=== PATIENT | male | born 1960 | race African-American/Black ===

== ENCOUNTER 2016-12-23 09:24 | Inpatient (IN) | payer BC ==
[2016-12-23 11:55] VITALS: BMI 25.2
--- NOTE | 2016-12-23 13:32 | HP ---
COWS - Scale Resting Pulse: 0= [place] 80 or Below Sweatin=Flushed/Facial Moisture Restless Observation: 1= Difficult to Sit Still Pupil Size: 0= Normal to Room Light Bone or Joint Aches: 2= Severe Diffuse Aches Runny Nose/ Eye Tearin= Nasal Congestion GI Upset > 30mins: 0= None Tremor Observation: 2= Slight Tremor Visible Yawning Observation: 2= >3x During Session Anxiety or Irritability: 2=Irritable/Anxious Goose Flesh Skin: 3=Piloerection COWS Score: 15 Admission ROS BHS - HPI Chief Complaint: I want to detox and go to a rehab facility Allergies/Adverse Reactions: Allergies Allergy/AdvReac Type Severity Reaction Status Date / Time No Known Allergies Allergy Verified 12/23/16 12:50 History of Present Illness: pt is a 56yr old male with a history of heroin and cocaine dependence seeking detox for treatment. Exam Limitations: No Limitations - Ebola screening Have you traveled outside of the country in the last 21 days: No Have you had contact with anyone from an Ebola affected area: No Have you been sick,other than usual withdrawal symptoms: No Do you have a fever: No - Review of Systems Constitutional: Chills, Diaphoresis, Changes in sleep, Unexplained wgt Loss EENT: reports: Tearing Respiratory: reports: No Symptoms reported Cardiac: reports: No Symptoms Reported GI: reports: Constipated, Poor Fluid Intake, Indigestion : reports: No Symptoms Reported Musculoskeletal: reports: No Symptoms Reported Integumentary: reports: Flushing, Sweating Neuro: reports: Tingling, Tremors Endocrine: reports: Excessive Sweating, Flushing, Intolerance to Cold, Intolerance to Heat Hematology: reports: No Symptoms Reported Psychiatric: reports: Judgement Intact, Mood/Affect Appropiate, Orientated x3, Agitated, Anxious Other Systems: Reviewed and Negative Patient History - Patient Medical History Hx Anemia: No Hx Asthma: No Hx Chronic Obstructive Pulmonary Disease (COPD): No Hx Cancer: No Hx Cardiac Disorders: No Hx Congestive Heart Failure: No Hx Hypertension: No Hx Hypercholesterolemia: No Hx Pacemaker: No HX Cerebrovascular Accident: No Hx Seizures: No Hx Dementia: No Hx Diabetes: No Hx Gastrointestinal Disorders: Yes (acid reflux) Hx Liver Disease: No Hx Genitourinary Disorders: No Hx Sexually Transmitted Disorders: No Hx Renal Disease (ESRD): No Hx Thyroid Disease: No Hx Human Immunodeficiency Virus (HIV): No (NEGATIVE HX) Hx Hepatitis C: No (negative) Hx Depression: Yes (refused to see psych) Hx Suicide Attempt: No (denies) Hx Bipolar Disorder: No Hx Schizophrenia: No - Patient Surgical History Past Surgical History: No Hx Neurologic Surgery: No Hx Cataract Extraction: No Hx Cardiac Surgery: No Hx Lung Surgery: No Hx Breast Surgery: No Hx Breast Biopsy: No Hx Abdominal Surgery: No Hx Appendectomy: No Hx Cholecystectomy: No Hx Genitourinary Surgery: No Hx Section: No Hx Orthopedic Surgery: No Anesthesia Reaction: No - PPD History Previous Implant?: Yes Documented Results: Positive w/o proof PPD to be Administered?: No - Reproductive History Patient is a Female of Child Bearing Age (11 -55 yrs old): No - Smoking Cessation Smoking history: Current every day smoker Have you smoked in the past 12 months: Yes Aproximately how many cigarettes per day: 10 Hx Chewing Tobacco Use: No Initiated information on smoking cessation: Yes 'Breaking Loose' booklet given: 12/23/16 - Substance & Tx. History Hx Alcohol Use: No Hx Substance Use: Yes Substance Use Type: Cocaine, Heroin Hx Substance Use Treatment: Yes (last detox 2013) - Substances Abused Heroin Route: Inhalation Frequency: Daily Amount used: 3-5 bags Age of first use: 19 Date of Last Use: 12/22/16 Cocaine Route: Inhalation Frequency: 1-2 times per week Amount used: $50-75 Age of first use: 19 Date of Last Use: 12/20/16 Family Disease History - Family Disease History Family Disease History: Other: Father (), Mother () Admission Physical Exam S - Vital Signs Vital Signs: Vital Signs - 24 hr 12/23/16 11:54 Temperature 96 F L Pulse Rate 76 Respiratory 20 Rate Blood Pressure 143/97 - Physical General Appearance: Yes: Appropriately Dressed, Moderate Distress, Tremorous, Irritable, Sweating, Anxious HEENTM: Yes: Hearing grossly Normal, Normal Voice, Nasal Congestion, Rhinorrhea Respiratory: Yes: Chest Non-Tender, Lungs Clear, Normal Breath Sounds, No Respiratory Distress Neck: Yes: No masses,lesions,Nodules Breast: Yes: Within Normal Limits Cardiology: Yes: Regular Rhythm, Regular Rate, S1, S2 Abdominal: Yes: Normal Bowel Sounds, Non Tender, Soft Genitourinary: Yes: Within Normal Limits Back: Yes: Normal Inspection Musculoskeletal: Yes: full range of Motion, Gait Steady Extremities: Yes: Normal Capillary Refill, Normal Inspection, Tremors 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: Yes: Fully Oriented, Alert, Normal Response Integumentary: Yes: Normal Color, Diaphoresis Lymphatic: Yes: Within Normal Limits - Diagnostic (1) Opioid dependence with withdrawal Current Visit: Yes Status: Chronic (2) Cocaine dependence Current Visit: Yes Status: Chronic Qualifiers: Substance use status: uncomplicated Qualified Code(s): F14.20 - Cocaine dependence, uncomplicated; F14.20 - Cocaine dependence, uncomplicated; F14.20 - Cocaine dependence, uncomplicated BHS Breath Alcohol Content Breath Alcohol Content: 0 Urine Drug Screen - Results Drug Screen Negative: No Urine Drug Screen Results: AVNI-Cocaine, OPI-Opiates, MET-Methamphetamine
[2016-12-23] MEDS ORDERED: guaiFENesin/D-METHORPHAN HB 10 ML UNIT-DOSE CUPS PO PRN (13:55)
[2016-12-23] MEDS ORDERED: P-EPHED 60MG/TRIPROLIDI 2.5MG TABLET PO PRN (13:55)
[2016-12-23] MEDS ORDERED: hydrOXYzine PAMOATE 50 MG CAPSULE (FP) PO PRN (13:55)
[2016-12-23] MEDS ORDERED: MAGNESIUM CITRATE 300 ML BOTTLE PO PRN (13:55)
[2016-12-23] MEDS ORDERED: LOPERAMIDE HCL 2 MG CAPSULE PO PRN (13:55)
[2016-12-23] MEDS ORDERED: MAGNESIUM HYDROX 2400MG/30ML ORAL SUSPENSION 30 ML CUP PO PRN (13:55)
[2016-12-23] MEDS ORDERED: IBUPROFEN 400 MG TABLET (FP) PO PRN (13:55)
[2016-12-23] MEDS ORDERED: ACETAMINOPHEN 325 MG TABLET (FP) PO PRN (13:55)
[2016-12-23] MEDS ORDERED: MENTHOL/PHENOL 1 EACH UD MM PRN (13:55)
[2016-12-23] MEDS ORDERED: METHADONE HCL 10 MG TABLET (FOR DETOX USE ONLY) PO ONE ×2 (14:44→23:00)
[2016-12-23] MEDS: diazePAM 5 MG TABLET PO PRN ×2 (15:14→22:33)
[2016-12-23] MEDS: MAG HYDROX/AL HYDROX/SIMETH 30 ML UNIT-DOSE CUP PO PRN (18:12)
[2016-12-23 20:27] LABS: URINE APPEARANCE CLEAR; URINE BILIRUBIN NEGATIVE (NEGATIVE); URINE BLOOD NEGATIVE (NEGATIVE); URINE COLOR LTYELLOW; URINE GLUCOSE (UA) NEGATIVE (NEGATIVE); URINE KETONE NEGATIVE (NEGATIVE); URINE NITRITE NEGATIVE (NEGATIVE); URINE PROTEIN NEGATIVE (NEGATIVE); URINE UROBILINOGEN NEGATIVE mg/dL (0.2-1.0)
[2016-12-23] MEDS: THIAMINE HCL 100 MG TABLET (FP) PO SCH (22:32)
[2016-12-23] MEDS: RANITIDINE HCL 150 MG TABLET (FP) PO SCH (22:32)
[2016-12-23] MEDS: diphenhydrAMINE HCL 50 MG CAPSULE PO PRN (22:34)
[2016-12-23 22:46] LABS: URINE LEUK ESTERASE Negative (NEGATIVE)
[2016-12-24] MEDS: diazePAM 5 MG TABLET PO PRN ×4 (05:48→22:32)
--- NOTE | 2016-12-24 09:29 | EKG ---
Test Reason : Blood Pressure : / mmHG Vent. Rate : 061 BPM Atrial Rate : 061 BPM P-R Int : 156 ms QRS Dur : 090 ms QT Int : 398 ms P-R-T Axes : 059 052 033 degrees QTc Int : 400 ms NORMAL SINUS RHYTHM VOLTAGE CRITERIA FOR LEFT VENTRICULAR HYPERTROPHY ABNORMAL ECG NO PREVIOUS ECGS AVAILABLE Confirmed by CHELI MENDEZ MD ([id number]) on 12/24/2016 9:29:23 AM Referred By: Confirmed By:CHELI MENDEZ MD
[2016-12-24 09:43] LABS: MCH 33.1 pg (25.7-33.7); MCHC 32.5 g/dl (32.0-35.9); MEAN CELL VOLUME 101.8 fl (80-96); PLATELET COUNT 184 K/MM3 (134-434); RDW 13.2 % (11.9-15.9); WHITE BLOOD COUNT 3.9 K/mm3 (4.0-10.0)
[2016-12-24] MEDS ORDERED: METHADONE HCL 10 MG TABLET (FOR DETOX USE ONLY) PO ONE (10:00)
[2016-12-24] MEDS ORDERED: NICOTINE 21 MG/24 HOURS TOPICAL PATCH TD SCH (10:00)
[2016-12-24 10:16] LABS: ALBUMIN 4.2 g/dl (3.4-5.0); ALK PHOS 66 U/L (45-117); ANION GAP 6 (8-16); BILIRUBIN,TOTAL 0.5 mg/dL (0.2-1.0); CALCIUM 9.3 mg/dL (8.5-10.1); CO2 29 mmol/L (21-32); CREATININE 1.2 mg/dL (0.7-1.3); GLUCOSE,RANDOM 92 mg/dL (74-106); SGOT/AST 20 U/L (15-37); SGPT/ALT 26 U/L (12-78); TOT PROT 8.3 g/dl (6.4-8.2)
[2016-12-24] MEDS: RANITIDINE HCL 150 MG TABLET (FP) PO SCH ×2 (10:17→22:32)
[2016-12-24] MEDS: PRENATAL VITAMINS W/ FOLIC ACID TABLET (FP) PO SCH (10:17)
[2016-12-24] MEDS: NICOTINE POLACRILEX 4 MG GUM BUC PRN ×2 (10:26→16:59)
--- NOTE | 2016-12-24 14:11 | PN ---
BHS COWS - Scale Resting Pulse: 0= [place] 80 or Below Sweatin=Flushed/Facial Moisture Restless Observation: 1= Difficult to Sit Still Pupil Size: 0= Normal to Room Light Bone or Joint Aches: 2= Severe Diffuse Aches Runny Nose/ Eye Tearin= Nasal Congestion GI Upset > 30mins: 0= None Tremor Observation of Outstretched Hands: 2= Slight Tremor Visible Yawning Observation: 0= None Anxiety or Irritability: 2=Irritable/Anxious Goose Flesh Skin: 3=Piloerection COWS Score: 13 BHS Progress Note (SOAP) Subjective: Interrupted sleep, anxiety, agitation Objective: 12/24/16 14:13 Vital Signs Temperature 98.1 F 12/24/16 13:05 Pulse Rate 81 12/24/16 13:05 Respiratory Rate 19 12/24/16 13:05 Blood Pressure 141/90 12/24/16 13:05 O2 Sat by Pulse Oximetry (%) Laboratory Last Values WBC 3.9 K/mm3 (4.0-10.0) L 12/24/16 06:00 RBC 3.95 M/mm3 (4.00-5.60) L 12/24/16 06:00 Hgb 13.1 GM/dL (11.7-16.9) 12/24/16 06:00 Hct 40.2 % (35.4-49) 12/24/16 06:00 MCV 101.8 fl (80-96) H 12/24/16 06:00 MCH 33.1 pg (25.7-33.7) 12/24/16 06:00 MCHC 32.5 g/dl (32.0-35.9) 12/24/16 06:00 RDW 13.2 % (11.9-15.9) 12/24/16 06:00 Plt Count 184 K/MM3 (134-434) D 12/24/16 06:00 MPV 11.0 fl (7.5-11.1) 12/24/16 06:00 Sodium 137 mmol/L (136-145) 12/24/16 06:00 Potassium 4.2 mmol/L (3.5-5.1) 12/24/16 06:00 Chloride 102 mmol/L (98-107) 12/24/16 06:00 Carbon Dioxide 29 mmol/L (21-32) 12/24/16 06:00 Anion Gap 6 (8-16) L 12/24/16 06:00 BUN 17 mg/dL (7-18) D 12/24/16 06:00 Creatinine 1.2 mg/dL (0.7-1.3) D 12/24/16 06:00 Creat Clearance w eGFR > 60 (>60) 12/24/16 06:00 Random Glucose 92 mg/dL (74-106) 12/24/16 06:00 Calcium 9.3 mg/dL (8.5-10.1) 12/24/16 06:00 Total Bilirubin 0.5 mg/dL (0.2-1.0) D 12/24/16 06:00 AST 20 U/L (15-37) D 12/24/16 06:00 ALT 26 U/L (12-78) D 12/24/16 06:00 Alkaline Phosphatase 66 U/L (45-117) 12/24/16 06:00 Total Protein 8.3 g/dl (6.4-8.2) H 12/24/16 06:00 Albumin 4.2 g/dl (3.4-5.0) 12/24/16 06:00 Urine Color Ltyellow 12/23/16 19:43 Urine Appearance Clear 12/23/16 19:43 Urine pH 5.0 (5.0-8.0) 12/23/16 19:43 Ur Specific [place] 1.020 (1.005-1.025) 12/23/16 19:43 Urine Protein Negative (NEGATIVE) 12/23/16 19:43 Urine Glucose (UA) Negative (NEGATIVE) 12/23/16 19:43 Urine Ketones Negative (NEGATIVE) 12/23/16 19:43 Urine Blood Negative (NEGATIVE) 12/23/16 19:43 Urine Nitrite Negative (NEGATIVE) 12/23/16 19:43 Urine Bilirubin Negative (NEGATIVE) 12/23/16 19:43 Urine Urobilinogen Negative mg/dL (0.2-1.0) 12/23/16 19:43 Ur Leukocyte Esterase Negative (NEGATIVE) 12/23/16 19:43 RPR Titer Nonreactive (NONREACTIVE) 12/24/16 06:00 Labs noted Assessment: 10/13/17 14:14 Withdrawal sx Plan: Continue detox Increase oral fliuds hydration
[2016-12-24] MEDS: diphenhydrAMINE HCL 50 MG CAPSULE PO PRN (22:32)
[2016-12-24] MEDS: THIAMINE HCL 100 MG TABLET (FP) PO SCH (22:32)
[2016-12-24] MEDS: MAG HYDROX/AL HYDROX/SIMETH 30 ML UNIT-DOSE CUP PO PRN (23:51)
[2016-12-25] MEDS: NICOTINE POLACRILEX 4 MG GUM BUC PRN ×4 (07:06→17:39)
[2016-12-25] MEDS ORDERED: METHADONE HCL 5 MG TABLET (FOR DETOX USE ONLY) PO ONE (10:00)
[2016-12-25] MEDS: PRENATAL VITAMINS W/ FOLIC ACID TABLET (FP) PO SCH (10:09)
[2016-12-25] MEDS: RANITIDINE HCL 150 MG TABLET (FP) PO SCH ×2 (10:09→22:13)
[2016-12-25] MEDS: diazePAM 5 MG TABLET PO PRN ×2 (10:11→22:13)
--- NOTE | 2016-12-25 15:14 | PN ---
BHS COWS - Scale Resting Pulse: 1= [place] 81-100 Sweatin= Chills/Flushing Restless Observation: 3= Extraneous Movement Pupil Size: 1= Pupils >than Normal Bone or Joint Aches: 2= Severe Diffuse Aches Runny Nose/ Eye Tearin= Runny Nose/Eyes GI Upset > 30mins: 3= Vomiting/Diarrhea Tremor Observation of Outstretched Hands: 2= Slight Tremor Visible Yawning Observation: 1= 1-2x During Session Anxiety or Irritability: 2=Irritable/Anxious Goose Flesh Skin: 0=Smooth Skin COWS Score: 18 BHS Progress Note (SOAP) Subjective: alert,irritable,anxious,interrupted sleep,pain in the body and back Objective: 12/25/16 15:19 Vital Signs Temperature 98.1 F 12/25/16 13:47 Pulse Rate 93 H 12/25/16 13:47 Respiratory Rate 16 12/25/16 13:47 Blood Pressure 135/84 12/25/16 13:47 O2 Sat by Pulse Oximetry (%) ekg nsr,lvh 12/25/16 15:20 Laboratory Last Values WBC 3.9 K/mm3 (4.0-10.0) L 12/24/16 06:00 RBC 3.95 M/mm3 (4.00-5.60) L 12/24/16 06:00 Hgb 13.1 GM/dL (11.7-16.9) 12/24/16 06:00 Hct 40.2 % (35.4-49) 12/24/16 06:00 MCV 101.8 fl (80-96) H 12/24/16 06:00 MCH 33.1 pg (25.7-33.7) 12/24/16 06:00 MCHC 32.5 g/dl (32.0-35.9) 12/24/16 06:00 RDW 13.2 % (11.9-15.9) 12/24/16 06:00 Plt Count 184 K/MM3 (134-434) D 12/24/16 06:00 MPV 11.0 fl (7.5-11.1) 12/24/16 06:00 Sodium 137 mmol/L (136-145) 12/24/16 06:00 Potassium 4.2 mmol/L (3.5-5.1) 12/24/16 06:00 Chloride 102 mmol/L (98-107) 12/24/16 06:00 Carbon Dioxide 29 mmol/L (21-32) 12/24/16 06:00 Anion Gap 6 (8-16) L 12/24/16 06:00 BUN 17 mg/dL (7-18) D 12/24/16 06:00 Creatinine 1.2 mg/dL (0.7-1.3) D 12/24/16 06:00 Creat Clearance w eGFR > 60 (>60) 12/24/16 06:00 Random Glucose 92 mg/dL (74-106) 12/24/16 06:00 Calcium 9.3 mg/dL (8.5-10.1) 12/24/16 06:00 Total Bilirubin 0.5 mg/dL (0.2-1.0) D 12/24/16 06:00 AST 20 U/L (15-37) D 12/24/16 06:00 ALT 26 U/L (12-78) D 12/24/16 06:00 Alkaline Phosphatase 66 U/L (45-117) 12/24/16 06:00 Total Protein 8.3 g/dl (6.4-8.2) H 12/24/16 06:00 Albumin 4.2 g/dl (3.4-5.0) 12/24/16 06:00 Urine Color Ltyellow 12/23/16 19:43 Urine Appearance Clear 12/23/16 19:43 Urine pH 5.0 (5.0-8.0) 12/23/16 19:43 Ur Specific [place] 1.020 (1.005-1.025) 12/23/16 19:43 Urine Protein Negative (NEGATIVE) 12/23/16 19:43 Urine Glucose (UA) Negative (NEGATIVE) 12/23/16 19:43 Urine Ketones Negative (NEGATIVE) 12/23/16 19:43 Urine Blood Negative (NEGATIVE) 12/23/16 19:43 Urine Nitrite Negative (NEGATIVE) 12/23/16 19:43 Urine Bilirubin Negative (NEGATIVE) 12/23/16 19:43 Urine Urobilinogen Negative mg/dL (0.2-1.0) 12/23/16 19:43 Ur Leukocyte Esterase Negative (NEGATIVE) 12/23/16 19:43 RPR Titer Nonreactive (NONREACTIVE) 12/24/16 06:00 Assessment: 12/25/16 15:20 withdrawal symptom Plan: continue detox
[2016-12-25] MEDS: MAG HYDROX/AL HYDROX/SIMETH 30 ML UNIT-DOSE CUP PO PRN (20:37)
[2016-12-25] MEDS: THIAMINE HCL 100 MG TABLET (FP) PO SCH (22:13)
[2016-12-26] MEDS: diphenhydrAMINE HCL 50 MG CAPSULE PO PRN ×2 (01:30→22:24)
[2016-12-26] MEDS: NICOTINE POLACRILEX 4 MG GUM BUC PRN ×5 (01:33→22:26)
[2016-12-26] MEDS ORDERED: METHADONE HCL 5 MG TABLET (FOR DETOX USE ONLY) PO ONE (10:00)
[2016-12-26] MEDS: PRENATAL VITAMINS W/ FOLIC ACID TABLET (FP) PO SCH (10:23)
[2016-12-26] MEDS: RANITIDINE HCL 150 MG TABLET (FP) PO SCH ×2 (10:24→22:24)
--- NOTE | 2016-12-26 14:23 | PN ---
S Progress Note (SOAP) Subjective: ALERT,IRRITABLE,ANXIOUS,INTERRUPTED SLEEP,PAIN IN THE BODY Objective: 12/26/16 14:22 Vital Signs Temperature 98.1 F 12/26/16 11:06 Pulse Rate 106 H 12/26/16 11:06 Respiratory Rate 18 12/26/16 11:06 Blood Pressure 121/79 12/26/16 11:06 O2 Sat by Pulse Oximetry (%) Assessment: 12/26/16 14:22 WITHDRAWAL SYMPTOM Plan: CONTINUE DETOX,
[2016-12-26] MEDS: THIAMINE HCL 100 MG TABLET (FP) PO SCH (22:24)
[2016-12-27] MEDS: NICOTINE POLACRILEX 4 MG GUM BUC PRN ×2 (09:04→14:23)
--- NOTE | 2016-12-27 09:07 | PN ---
BHS Progress Note (SOAP) Subjective: feeling so much better little anxious Objective: 12/27/16 09:05 Vital Signs Temperature 98.1 F 12/27/16 06:05 Pulse Rate 84 12/27/16 06:05 Respiratory Rate 18 12/27/16 06:05 Blood Pressure 119/55 12/27/16 06:05 O2 Sat by Pulse Oximetry (%) [id number] ambulating no acute distress Assessment: 12/27/16 09:06 mild withdrawal Plan: continue detox increase fluids d/c in am
[2016-12-27] MEDS ORDERED: METHADONE HCL 10 MG TABLET (FOR DETOX USE ONLY) PO ONE (10:00)
[2016-12-27] MEDS: PRENATAL VITAMINS W/ FOLIC ACID TABLET (FP) PO SCH (10:17)
[2016-12-27] MEDS: RANITIDINE HCL 150 MG TABLET (FP) PO SCH ×2 (10:17→21:55)
[2016-12-27] MEDS: diphenhydrAMINE HCL 50 MG CAPSULE PO PRN (21:55)
[2016-12-27] MEDS: THIAMINE HCL 100 MG TABLET (FP) PO SCH (21:55)
[2016-12-28] MEDS ORDERED: METHADONE HCL 5 MG TABLET (FOR DETOX USE ONLY) PO ONE (06:00)
[2016-12-28 06:50] VITALS: BP 111/72; PULSE 95; TEMP 97.3
--- NOTE | 2016-12-28 08:59 | DS ---
[facility] Detox Discharge Summary Admission Date: 12/23/16 Discharge Date: 12/28/16 - History Present History: Cocaine Dependence, Opioid Dependence - Physical Exam Results Vital Signs: Vital Signs Temperature 97.3 F L 12/28/16 06:49 Pulse Rate 95 H 12/28/16 06:49 Respiratory Rate 18 12/28/16 06:49 Blood Pressure 111/72 12/28/16 06:49 O2 Sat by Pulse Oximetry (%) - Treatment Hospital Course: Detox Protocol Followed, Detoxed Safely, Responded well, Discharged Condition Good, Rehab Referral Accepted - Medication Discharge Medications: Ambulatory Orders Omeprazole 20 mg PO DAILY 12/23/16 - Diagnosis (1) Opioid dependence with withdrawal Current Visit: Yes Status: Chronic (2) Cocaine dependence Current Visit: Yes Status: Chronic Qualifiers: Substance use status: uncomplicated Qualified Code(s): F14.20 - Cocaine dependence, uncomplicated; F14.20 - Cocaine dependence, uncomplicated; F14.20 - Cocaine dependence, uncomplicated - AMA Did Patient Leave Against Medical Advice: No
[2016-12-28] MEDS: NICOTINE POLACRILEX 4 MG GUM BUC PRN (09:14)
[2016-12-28] MEDS: PRENATAL VITAMINS W/ FOLIC ACID TABLET (FP) PO SCH (09:33)
[2016-12-28] MEDS: RANITIDINE HCL 150 MG TABLET (FP) PO SCH (09:33)
== END 2016-12-28 09:37 | disposition home or self-care (01) | DRG 897 ==
LOC: YASAS 09:24 → Y6N 14:40
PROVIDERS: ADMIT Internal Medicine; ATTEND Internal Medicine
PROC: HZ2ZZZZ Detoxification Services for Substance Abuse Treatment (ICD-10-PCS; principal; 2016-12-23)
DX: F11.23 Opioid dependence with withdrawal (principal); F14.20 Cocaine dependence, uncomplicated; F17.210 Nicotine dependence, cigarettes, uncomplicated; F32.9 Major depressive disorder, single episode, unspecified
CPT/HCPCS: 36415; 71020-TC; 80053; 81003; 85027; 86593; 93005; 93010

== ENCOUNTER 2018-04-17 08:13 | Inpatient (IN) | payer BC ==
[2018-04-17 09:42] VITALS: BMI 21.9
--- NOTE | 2018-04-17 11:04 | HP ---
COWS - Scale Resting Pulse: 0= [place] 80 or Below Sweatin= Chills/Flushing Restless Observation: 3= Extraneous Movement Pupil Size: 1= Pupils >than Normal Bone or Joint Aches: 2= Severe Diffuse Aches Runny Nose/ Eye Tearin= Runny Nose/Eyes GI Upset > 30mins: 2= Nausea/Diarrhea Tremor Observation: 2= Slight Tremor Visible Yawning Observation: 2= >3x During Session Anxiety or Irritability: 2=Irritable/Anxious Goose Flesh Skin: 0=Smooth Skin COWS Score: 17 CIWA Score Nausea/Vomitin Muscle Tremors: 2 Anxiety: 2 Agitation: 2 Paroxysmal Sweats: 1-Minimal Palms Moist Orientation: 0-Oriented Tacttile Disturbances: 1-Very Mild Itch/Numbness Auditory Disturbances: 1-Very Mild Visual Disturbances: 0-None Headache: 2-Mild CIWA-Ar Total Score: 13 - Admission Criteria [facility] Guidelines: Admission for Medically Managed Detox: Requires at least one of the followin. CIWA greater than 12 2. Seizures within the past 24 hours 3. Delirium tremens within the past 24 hours 4. Hallucinations within the past 24 hours 5. Acute intervention needed for co occurring medical disorder 6. Acute intervention needed for co occurring psychiatric disorder 7. Severe withdrawal that cannot be handled at a lower level of care (continued vomiting, continued diarrhea, abnormal vital signs) requiring intravenous medication and/or fluids 8. Patient presents the following: CIWA greater than 12 Admission Criteria Met: Admission criteria met Admission ROS [facility] - [facility] Chief Complaint: i need help to stop using heroin,alcohol and cocaine Allergies/Adverse Reactions: Allergies Allergy/AdvReac Type Severity Reaction Status Date / Time No Known Allergies Allergy Verified 04/17/18 10:13 History of Present Illness: this 57 years old male with heroin,cocaine and alcohol dependence,seeking detox, withdrawal symptom,last treatment [facility] 12/23/16 to 12/28/16 completed nicotine dependence insomnia ,anxiety weight loss longest period of sobriety 2 years Exam Limitations: No Limitations - Ebola screening Have you traveled outside of the country in the last 21 days: No Have you had contact with anyone from an Ebola affected area: No Have you been sick,other than usual withdrawal symptoms: No Do you have a fever: No - Review of Systems Constitutional: Loss of Appetite, Malaise, Night Sweats, Changes in sleep, Weakness, Unintentional Wgt. Loss EENT: reports: Tearing, Nose Congestion Respiratory: reports: No Symptoms reported Cardiac: reports: No Symptoms Reported GI: reports: Nausea, Vomiting, Abdominal cramping Integumentary: reports: Dryness Neuro: reports: Headache, Tremors Endocrine: reports: No Symptoms Reported Hematology: reports: No Symptoms Reported Psychiatric: reports: No Sypmtoms Reported, Judgement Intact, Mood/Affect Appropiate, Orientated x3, Anxious, Depressed, other (insomnia) Other Systems: Reviewed and Negative Patient History - Patient Medical History Hx Anemia: No Hx Asthma: No Hx Chronic Obstructive Pulmonary Disease (COPD): No Hx Cancer: No Hx Cardiac Disorders: No Hx Congestive Heart Failure: No Hx Hypertension: No Hx Hypercholesterolemia: No Hx Pacemaker: No HX Cerebrovascular Accident: No Hx Seizures: No Hx Dementia: No Hx Diabetes: No Hx Gastrointestinal Disorders: No Hx Liver Disease: No Hx Genitourinary Disorders: No Hx Sexually Transmitted Disorders: No Hx Renal Disease (ESRD): No Hx Thyroid Disease: No Hx Human Immunodeficiency Virus (HIV): No (NEGATIVE HX last 2015 ) Hx Hepatitis C: No (negative) Hx Depression: No Hx Suicide Attempt: No Hx Bipolar Disorder: No Hx Schizophrenia: No Other Medical History: nosuicidal,no homicidal - Patient Surgical History Past Surgical History: No Hx Neurologic Surgery: No Hx Cataract Extraction: No Hx Cardiac Surgery: No Hx Lung Surgery: No Hx Breast Surgery: No Hx Breast Biopsy: No Hx Abdominal Surgery: No Hx Appendectomy: No Hx Cholecystectomy: No Hx Genitourinary Surgery: No Hx Section: No Hx Orthopedic Surgery: No Anesthesia Reaction: No - PPD History Previous Implant?: No Documented Results: Positive w/o proof Implanted On Prior [facility] Admission?: No PPD to be Administered?: No - Reproductive History Patient : No - Smoking Cessation Smoking history: Current every day smoker Have you smoked in the past 12 months: Yes Aproximately how many cigarettes per day: 10 Hx Chewing Tobacco Use: No Initiated information on smoking cessation: Yes 'Breaking Loose' booklet given: 04/17/18 - Substance & Tx. History Hx Alcohol Use: Yes Hx Substance Use: Yes Substance Use Type: Alcohol, Cocaine, Heroin Hx Substance Use Treatment: Yes ([facility] 12/23/16 to 12/28/16) - Substances Abused Alcohol Route: Oral Frequency: Daily Amount used: 3 six packs beer, 16 oz cans Age of first use: 15 Date of Last Use: 04/16/18 Heroin Route: Inhalation Frequency: Daily Amount used: 5- 6 bags, $60.00 Age of first use: 19 Date of Last Use: 04/16/18 Cocaine Route: Smoking Frequency: Daily Amount used: 4 bags $80.00 Age of first use: 17 Date of Last Use: 04/14/18 Family Disease History - Family Disease History Family Disease History: [place]: Father (.alcohol), Mother (,), Other : Father, Mother Admission Physical Exam [facility] - Vital Signs Vital Signs: Vital Signs - 24 hr 04/17/18 09:40 Temperature 97.9 F Pulse Rate 79 Respiratory 18 Rate Blood Pressure 117/76 - Physical General Appearance: Yes: Moderate Distress, Tremorous, Irritable, Sweating, Anxious HEENTM: Yes: Normal ENT Inspection, LOS, Tm's normal Respiratory: Yes: Lungs Clear, Normal Breath Sounds, No Respiratory Distress Neck: Yes: Within Normal Limits, Supple, Trachea in good position Breast: Yes: Within Normal Limits Cardiology: Yes: Within Normal Limits, Regular Rhythm, Regular Rate, S1, S2 Abdominal: Yes: Within Normal Limits, Normal Bowel Sounds, Non Tender, Flat, Soft Genitourinary: Yes: Within Normal Limits Back: Yes: Muscle Spasm Musculoskeletal: Yes: Back pain, Joint Stiffness, Muscle Pain Extremities: Yes: Within Normal Limits, Normal Range of Motion, Tremors 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 intact, Fully Oriented, Alert, Motor Strength 5/5 Integumentary: Yes: Dry Lymphatic: Yes: Within Normal Limits - Diagnostic (1) Opioid dependence with withdrawal Current Visit: No Status: Chronic (2) Nicotine dependence Current Visit: No Status: Acute (3) Cocaine dependence Current Visit: No Status: Chronic Qualifiers: Substance use status: uncomplicated Qualified Code(s): F14.20 - Cocaine dependence, uncomplicated (4) Alcohol dependence with uncomplicated withdrawal Current Visit: Yes Status: Acute (5) Weight loss Current Visit: Yes Status: Acute (6) Insomnia Current Visit: Yes Status: Acute (7) Anxiety and depression Current Visit: Yes Status: Acute Cleared for Admission [facility] - Detox or Rehab [facility] Level of Care: Medically Managed Detox Regimen/Protocol: Methadone/Librium BHS Breath Alcohol Content Breath Alcohol Content: 0 Urine Drug Screen - Results Drug Screen Negative: No Urine Drug Screen Results: AVNI-Cocaine, OPI-Opiates, FEN-Fentanyl
[2018-04-17] MEDS ORDERED: guaiFENesin/D-METHORPHAN HB 10 ML UNIT-DOSE CUPS PO PRN (11:16)
[2018-04-17] MEDS ORDERED: MAGNESIUM HYDROX 2400MG/30ML ORAL SUSPENSION 30 ML CUP PO PRN (11:16)
[2018-04-17] MEDS ORDERED: MAGNESIUM CITRATE 300 ML BOTTLE PO PRN (11:16)
[2018-04-17] MEDS ORDERED: P-EPHED 60MG/TRIPROLIDI 2.5MG TABLET PO PRN (11:16)
[2018-04-17] MEDS ORDERED: chlordiazePOXIDE HCL 25 MG CAPSULE PO PRN (11:16)
[2018-04-17] MEDS ORDERED: LOPERAMIDE HCL 2 MG CAPSULE PO PRN (11:16)
[2018-04-17] MEDS ORDERED: MENTHOL/PHENOL 1 EACH UD MM PRN (11:16)
[2018-04-17] MEDS ORDERED: IBUPROFEN 400 MG TABLET (FP) PO PRN (11:16)
[2018-04-17] MEDS ORDERED: MAG HYDROX/AL HYDROX/SIMETH 30 ML UNIT-DOSE CUP PO PRN (11:16)
[2018-04-17] MEDS ORDERED: NICOTINE POLACRILEX 2 MG GUM BUC PRN (11:16)
[2018-04-17] MEDS ORDERED: COLLOIDAL OATMEAL 1 BAR EACH TP PRN (11:21)
[2018-04-17] MEDS ORDERED: METHADONE HCL 10 MG TABLET (FOR DETOX USE ONLY) PO ONE ×2 (11:40→23:00)
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
[2018-04-17 14:48] LABS: URINE APPEARANCE SLCLOUDY; URINE BILIRUBIN NEGATIVE (<2.0 mg/dL); URINE COLOR AMBER; URINE GLUCOSE (UA) NEGATIVE (NEGATIVE); URINE KETONE NEGATIVE (NEGATIVE); URINE LEUK ESTERASE NEGATIVE (NEGATIVE); URINE NITRITE NEGATIVE (NEGATIVE); URINE PROTEIN 1+ (NEGATIVE)
[2018-04-17 15:26] LABS: CALCIUM OXALATE CRYSTALS RARE /hpf (NONE SEEN); EPI CELLS RARE /HPF (FEW); URINE HYALINE CAST 1 /lpf; URINE MUCUS MANY
[2018-04-17] MEDS: chlordiazePOXIDE HCL 25 MG CAPSULE PO SCH ×2 (16:54→22:03)
[2018-04-17] MEDS ORDERED: MELATONIN 5 MG TABLETS PO PRN (22:00)
[2018-04-17] MEDS: THIAMINE HCL 100 MG TABLET (FP) PO SCH (22:03)
[2018-04-17] MEDS: traZODone HCL 100 MG TABLET (FP) PO SCH (22:03)
[2018-04-18] MEDS: chlordiazePOXIDE HCL 25 MG CAPSULE PO SCH (06:05)
[2018-04-18] MEDS: ACETAMINOPHEN 325 MG TABLET (FP) PO PRN (06:08)
[2018-04-18] MEDS ORDERED: diazePAM 5 MG TABLET PO ONE (09:05)
[2018-04-18] MEDS ORDERED: diazePAM 5 MG TABLET PO PRN (09:05)
--- NOTE | 2018-04-18 09:13 | PN ---
S CIWA - CIWA Score Nausea/Vomitin Muscle Tremors: 3 Anxiety: 2 Agitation: 2 Paroxysmal Sweats: 1-Minimal Palms Moist Orientation: 0-Oriented Tacttile Disturbances: 1-Very Mild Itch/Numbness Auditory Disturbances: 0-None Visual Disturbances: 1-Very Mild Sensitivity Headache: 2-Mild CIWA-Ar Total Score: 15 BHS COWS - Scale Resting Pulse: 0= [place] 80 or Below Sweatin= Chills/Flushing Restless Observation: 3= Extraneous Movement Pupil Size: 1= Pupils >than Normal Bone or Joint Aches: 2= Severe Diffuse Aches Runny Nose/ Eye Tearin= Nasal Congestion GI Upset > 30mins: 2= Nausea/Diarrhea Tremor Observation of Outstretched Hands: 2= Slight Tremor Visible Yawning Observation: 2= >3x During Session Anxiety or Irritability: 2=Irritable/Anxious Goose Flesh Skin: 0=Smooth Skin COWS Score: 16 BHS Progress Note (SOAP) Subjective: alert,irritable,anxious,vomiting,tremor,pain over the body and back Objective: 04/18/18 09:11 Vital Signs Temperature 97.2 F L 04/18/18 09:11 Pulse Rate 61 04/18/18 09:11 Respiratory Rate 18 04/18/18 09:11 Blood Pressure 165/95 04/18/18 09:11 O2 Sat by Pulse Oximetry (%) 04/18/18 09:12 labs pending Assessment: 04/18/18 09:12 withdrawal symptom Plan: continue detox,tigan 200 mgs im q 8hrs prn for vomiting,would like regimen to be changed from methadona and librium to methadone and valium,regimen changed
[2018-04-18] MEDS: TRIMETHOBENZAMIDE HCL 200MG/2ML INJ IM PRN ×2 (09:23→19:51)
[2018-04-18] MEDS ORDERED: METHADONE HCL 10 MG TABLET (FOR DETOX USE ONLY) PO SCH (10:00)
[2018-04-18] MEDS: PRENATAL VITAMINS W/ FOLIC ACID TABLET (FP) PO SCH (10:19)
[2018-04-18 10:22] LABS: ALBUMIN 3.9 g/dl (3.4-5.0); ALK PHOS 76 U/L (45-117); ANION GAP 4 MMOL/L (8-16); BILIRUBIN,TOTAL 0.5 mg/dL (0.2-1); BLOOD UREA NITROGEN 12 mg/dL (7-18); CALCIUM 8.8 mg/dL (8.5-10.1); CHLORIDE 103 mmol/L (98-107); CO2 30 mmol/L (21-32); CREATININE 0.9 mg/dL (0.55-1.3); GLUCOSE,RANDOM 82 mg/dL (74-106); SGOT/AST 26 U/L (15-37); SGPT/ALT 28 U/L (13-61); SODIUM 136 mmol/L (136-145); TOT PROT 7.4 g/dl (6.4-8.2)
[2018-04-18 10:29] LABS: HEMATOCRIT 34.4 % (35.4-49); HEMOGLOBIN 11.8 GM/dL (11.7-16.9); MCH 33.8 pg (25.7-33.7); MCHC 34.4 g/dl (32.0-35.9); MEAN CELL VOLUME 98.3 fl (80-96); MEAN PLT VOLUME 10.6 fl (7.5-11.1); PLATELET COUNT 198 K/MM3 (134-434); RDW 12.8 % (11.9-15.9); WHITE BLOOD COUNT 5.1 K/mm3 (4.0-10.0)
[2018-04-18] MEDS ORDERED: cloNIDine HCL 0.1 MG TABLET PO ONE (12:25)
[2018-04-18] MEDS: diazePAM 5 MG TABLET PO SCH ×2 (13:32→22:06)
[2018-04-18] MEDS ORDERED: chlordiazePOXIDE HCL 25 MG CAPSULE PO SCH (17:00)
[2018-04-18] MEDS: cloNIDine HCL 0.1 MG TABLET PO SCH (22:06)
[2018-04-18] MEDS: traZODone HCL 100 MG TABLET (FP) PO SCH (22:06)
[2018-04-18] MEDS: THIAMINE HCL 100 MG TABLET (FP) PO SCH (22:06)
[2018-04-19] MEDS ORDERED: ONDANSETRON *ODT* 4 MG TABLET SL ONE (00:54)
[2018-04-19] MEDS: hydrOXYzine PAMOATE 25 MG CAPSULE (FP) PO PRN (06:48)
[2018-04-19] MEDS: diazePAM 5 MG TABLET PO SCH ×3 (06:48→22:48)
[2018-04-19] MEDS: PRENATAL VITAMINS W/ FOLIC ACID TABLET (FP) PO SCH (10:31)
[2018-04-19] MEDS: METHADONE HCL 5 MG TABLET (FOR DETOX USE ONLY) PO SCH (10:31)
[2018-04-19] MEDS: cloNIDine HCL 0.1 MG TABLET PO SCH ×2 (10:31→22:48)
[2018-04-19] MEDS: ACETAMINOPHEN 325 MG TABLET (FP) PO PRN (10:32)
[2018-04-19] MEDS: TRIMETHOBENZAMIDE HCL 300 MG CAPSULE PO PRN (11:36)
[2018-04-19] MEDS ORDERED: LISINOPRIL 10 MG TABLET (FP) PO ONE (15:54)
--- NOTE | 2018-04-19 16:04 | PN ---
[facility] CIWA - CIWA Score Nausea/Vomitin-No Nausea/No Vomiting Muscle Tremors: 1-None Visible, but [place] Anxiety: 2 Agitation: 0-Normal Activity Paroxysmal Sweats: 3 Orientation: 0-Oriented Tacttile Disturbances: 2-Mild Itch/Numbness/Burn Auditory Disturbances: 1-Very Mild Visual Disturbances: 3-Moderate Sensitivity Headache: 0-None Present CIWA-Ar Total Score: 12 S COWS - Scale Resting Pulse: 1= [place] 81-100 Sweatin= Chills/Flushing Restless Observation: 0= Sits Still Pupil Size: 0= Normal to Room Light Bone or Joint Aches: 0= None Runny Nose/ Eye Tearin= None GI Upset > 30mins: 1= Stomach Cramp Tremor Observation of Outstretched Hands: 1= Tremor [place], Not Seen Yawning Observation: 1= 1-2x During Session Anxiety or Irritability: 2=Irritable/Anxious Goose Flesh Skin: 3=Piloerection COWS Score: 10 S Progress Note (SOAP) Subjective: Chills, Sweating, Interrupted Sleep, Constipation, Vomiting. Objective: PATIENT A & O X 3, OBSERVED AMBULATING ON UNIT. IN NO ACUTE DISTRESS. PATIENT REPORTS HISTORY OF HYPERTENSION AND THAT HE HAS TAKEN MEDICATION IN PAST , BUT IS UNABLE TO RECAQLL NAME OF MEDICATION THAT HE TOOK IN PAST TO TREAT HTN. 04/19/18 15:57 Vital Signs Temperature 100.0 F H 04/19/18 12:48 Pulse Rate 59 L 04/19/18 12:48 Respiratory Rate 18 04/19/18 12:48 Blood Pressure 161/98 04/19/18 12:48 O2 Sat by Pulse Oximetry (%) Laboratory Tests 04/17/18 04/18/18 04/18/18 13:40 06:00 06:00 WBC 5.1 RBC 3.50 L Hgb 11.8 Hct 34.4 L MCV 98.3 H MCH 33.8 H MCHC 34.4 RDW 12.8 Plt Count 198 MPV 10.6 Sodium 136 Potassium 4.0 Chloride 103 Carbon Dioxide 30 Anion Gap 4 L BUN 12 Creatinine 0.9 Creat Clearance w eGFR > 60 Random Glucose 82 Calcium 8.8 Total Bilirubin 0.5 AST 26 ALT 28 Alkaline Phosphatase 76 Total Protein 7.4 Albumin 3.9 Urine Color Clarissa Urine Appearance Slcloudy Urine pH 5.0 Ur Specific [place] 1.027 Urine Protein 1+ H Urine Glucose (UA) Negative Urine Ketones Negative Urine Blood Negative Urine Nitrite Negative Urine Bilirubin Negative Urine Urobilinogen 2.0 Ur Leukocyte Esterase Negative Urine WBC (Auto) 2 Urine RBC (Auto) 3 Ur Epithelial Cells Rare Calcium Oxalate Crystal Rare Hyaline Casts 1 Urine Mucus Many RPR Titer 04/18/18 06:00 WBC RBC Hgb Hct MCV MCH MCHC RDW Plt Count MPV Sodium Potassium Chloride Carbon Dioxide Anion Gap BUN Creatinine Creat Clearance w eGFR Random Glucose Calcium Total Bilirubin AST ALT Alkaline Phosphatase Total Protein Albumin Urine Color Urine Appearance Urine pH Ur Specific [place] Urine Protein Urine Glucose (UA) Urine Ketones Urine Blood Urine Nitrite Urine Bilirubin Urine Urobilinogen Ur Leukocyte Esterase Urine WBC (Auto) Urine RBC (Auto) Ur Epithelial Cells Calcium Oxalate Crystal Hyaline Casts Urine Mucus RPR Titer Nonreactive LABS NOTED. 04/19/18 15:59 Assessment: 04/19/18 15:58 WITHDRAWAL SYMPTOMS. ELEVATED BLOOD PRESSURE. 04/19/18 15:58 Plan: CONTINUE DETOX. PRN TIGAN PO FOR NAUSEA / VOMITING. PRN MOM FOR CONSTIPATION. PATIENT REPORTS INTERMITTENT DISCOMFORT IN CHEST SINCE YESTERDAY (BURNING QUALITY). PATIENT POINTS TO STERNAL AREA AND AREA SLIGHTLY TO LEFT OF STERNUM PRIMARILY AFFECTED AREAS. PATIENT NOTES THAT HE BELIEVES THIS TO BE DUE VOMITING, WHICH HE HAS DONE MULTIPLE TIMES SINCE YESTERDAY. ECG DONE. RESULTS NOTED: 'SINUS BRADYCARDIA; VOLTAGE CRITERIA FOR LEFT VENTRICULAR HYPERTROPHY.' START LISINOPRIL, 10 MG PO DAILY FOR PERSISTENTLY ELEVATED BP. WILL CONTINUE TO MONITOR.
[2018-04-19] MEDS ORDERED: chlordiazePOXIDE 5 MG CAPSULE PO SCH (17:00)
[2018-04-19] MEDS: traZODone HCL 100 MG TABLET (FP) PO SCH (22:47)
[2018-04-19] MEDS: THIAMINE HCL 100 MG TABLET (FP) PO SCH (22:48)
[2018-04-20] MEDS ORDERED: LISINOPRIL 10 MG TABLET (FP) PO SCH (10:00)
[2018-04-20] MEDS: METHADONE HCL 5 MG TABLET (FOR DETOX USE ONLY) PO SCH (11:31)
[2018-04-20] MEDS: TRIMETHOBENZAMIDE HCL 300 MG CAPSULE PO PRN (11:31)
[2018-04-20] MEDS: PRENATAL VITAMINS W/ FOLIC ACID TABLET (FP) PO SCH (11:31)
[2018-04-20] MEDS: diazePAM 5 MG TABLET PO SCH ×2 (11:32→22:54)
[2018-04-20] MEDS: cloNIDine HCL 0.1 MG TABLET PO SCH ×2 (11:32→22:54)
--- NOTE | 2018-04-20 14:35 | PN ---
BHS Progress Note (SOAP) Subjective: Fatigue, Lethargy, Sweating, Interrupted sleep. Patient Reports that both Nausea and Chest Discomfort Reported Yesterday have resolved. Objective: PATIENT A & O X 3, OBSERVED AMBULATING ON UNIT. IN NO ACUTE DISTRESS. 04/20/18 14:35 Vital Signs Temperature 97.5 F L 04/20/18 13:50 Pulse Rate 107 H 04/20/18 13:50 Respiratory Rate 16 04/20/18 13:50 Blood Pressure 126/95 04/20/18 13:50 O2 Sat by Pulse Oximetry (%) Laboratory Tests 04/17/18 04/18/18 04/18/18 13:40 06:00 06:00 WBC 5.1 RBC 3.50 L Hgb 11.8 Hct 34.4 L MCV 98.3 H MCH 33.8 H MCHC 34.4 RDW 12.8 Plt Count 198 MPV 10.6 Sodium 136 Potassium 4.0 Chloride 103 Carbon Dioxide 30 Anion Gap 4 L BUN 12 Creatinine 0.9 Creat Clearance w eGFR > 60 Random Glucose 82 Calcium 8.8 Total Bilirubin 0.5 AST 26 ALT 28 Alkaline Phosphatase 76 Total Protein 7.4 Albumin 3.9 Urine Color Clarissa Urine Appearance Slcloudy Urine pH 5.0 Ur Specific [place] 1.027 Urine Protein 1+ H Urine Glucose (UA) Negative Urine Ketones Negative Urine Blood Negative Urine Nitrite Negative Urine Bilirubin Negative Urine Urobilinogen 2.0 Ur Leukocyte Esterase Negative Urine WBC (Auto) 2 Urine RBC (Auto) 3 Ur Epithelial Cells Rare Calcium Oxalate Crystal Rare Hyaline Casts 1 Urine Mucus Many RPR Titer 04/18/18 06:00 WBC RBC Hgb Hct MCV MCH MCHC RDW Plt Count MPV Sodium Potassium Chloride Carbon Dioxide Anion Gap BUN Creatinine Creat Clearance w eGFR Random Glucose Calcium Total Bilirubin AST ALT Alkaline Phosphatase Total Protein Albumin Urine Color Urine Appearance Urine pH Ur Specific [place] Urine Protein Urine Glucose (UA) Urine Ketones Urine Blood Urine Nitrite Urine Bilirubin Urine Urobilinogen Ur Leukocyte Esterase Urine WBC (Auto) Urine RBC (Auto) Ur Epithelial Cells Calcium Oxalate Crystal Hyaline Casts Urine Mucus RPR Titer Nonreactive LABS NOTED. Assessment: 04/20/18 14:36 withdrawal symptoms. Plan: CONTINUE DETOX.
--- NOTE | 2018-04-20 16:40 | PN ---
[facility] Progress Note Note: PATIENT REPORTS SUDDEN ONSET OF CHEST PAIN. PATIENT REPORTS PAIN TO BE STERNAL AREA, BURNING QUALITY, 7/10 ON PAIN SCALE. PATIENT DENIES RADIATION OF PAIN TO NECK, OTHER PART OF CHEST, OR DOWN LEFT ARM. 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 , FOR WHICH HE HAS BEEN TREATED WITH PRILOSEC IN PAST. PATIENT REPORTS DISCOMFORT THAT HE IS CURRENTLY EXPERIENCING TO BE SIMILAR TO DISCOMFORT THAT HE EXPERIENCED DUE TO G.E.R.D IN THE PAST. S1, S2, NO ADVENTITIOUS HEART SOUNDS AUSCULTATED. STAT ECG ORDERED. RESULTS NOTED: SINUS BRADYCARDIA; RIGHT ATRIAL ENLARGEMENT; VOLTAGE CRITERIA FOR LEFT VENTRICULAR HYPERTROPHY. ZANTAC, 150 MG PO BID ORDERED (FOR FAST EFFECT). PATIENT ADVISED NOT TO LIE FLAT FOR 2-3 HOURS AFTER EATING MEALS, INCREASE PO WATER INTAKE, AND TO ELEVATE THE HEAD OF HIS BED SOMEWHAT. PATIENT ALSO ADVISED TO NOTIFY MEDICAL / NURSING STAFF IMMEDIATELY SHOULD CHEST PAIN PERSIST LATER INTO EVENING OR BECOME MORE SEVERE AT ANY TIME. PATIENT ALSO ADVISED TO [place] [facility] [place] [facility] ( [place], [place], PATIENT UNABLE TO RECALL NAME A THIS TIME) AFTER DISCHARGE FROM DETOX UNIT FOR FURTHER MEDICAL EVALUATION. PATIENT VERBALIZED UNDERSTANDING OF ALL RECOMMENDATIONS. Yousuf GO NP
--- NOTE | 2018-04-20 16:47 | EKG ---
Test Reason : Blood Pressure : / mmHG Vent. Rate : 057 BPM Atrial Rate : 057 BPM P-R Int : 136 ms QRS Dur : 086 ms QT Int : 446 ms P-R-T Axes : -10 -05 011 degrees QTc Int : 434 ms SINUS BRADYCARDIA VOLTAGE CRITERIA FOR LEFT VENTRICULAR HYPERTROPHY ABNORMAL ECG WHEN COMPARED WITH ECG OF 23-DEC-2016 14:22, QUESTIONABLE CHANGE IN QRS AXIS Confirmed by CHEPE FORDE, LIBAN ([id number]) on 04/20/2018 4:46:59 PM Referred By: Confirmed By:LIBAN MO MD
[2018-04-20] MEDS ORDERED: chlordiazePOXIDE HCL 10 MG CAPSULE PO SCH (17:00)
[2018-04-20] MEDS ORDERED: RANITIDINE HCL 150 MG TABLET (FP) PO ONE (17:15)
[2018-04-20] MEDS: THIAMINE HCL 100 MG TABLET (FP) PO SCH (22:54)
[2018-04-20] MEDS: RANITIDINE HCL 150 MG TABLET (FP) PO SCH (22:54)
[2018-04-20] MEDS: hydrOXYzine PAMOATE 25 MG CAPSULE (FP) PO PRN (22:54)
[2018-04-20] MEDS: traZODone HCL 100 MG TABLET (FP) PO SCH (22:54)
--- NOTE | 2018-04-21 08:34 | PN ---
BHS Progress Note (SOAP) Subjective: I feel fine no chest pain; no withdrawals Objective: 04/21/18 08:39 Laboratory Last Values WBC 5.1 K/mm3 (4.0-10.0) 04/18/18 06:00 RBC 3.50 M/mm3 (4.00-5.60) L 04/18/18 06:00 Hgb 11.8 GM/dL (11.7-16.9) 04/18/18 06:00 Hct 34.4 % (35.4-49) L 04/18/18 06:00 MCV 98.3 fl (80-96) H 04/18/18 06:00 MCH 33.8 pg (25.7-33.7) H 04/18/18 06:00 MCHC 34.4 g/dl (32.0-35.9) 04/18/18 06:00 RDW 12.8 % (11.9-15.9) 04/18/18 06:00 Plt Count 198 K/MM3 (134-434) 04/18/18 06:00 MPV 10.6 fl (7.5-11.1) 04/18/18 06:00 Sodium 136 mmol/L (136-145) 04/18/18 06:00 Potassium 4.0 mmol/L (3.5-5.1) 04/18/18 06:00 Chloride 103 mmol/L (98-107) 04/18/18 06:00 Carbon Dioxide 30 mmol/L (21-32) 04/18/18 06:00 Anion Gap 4 MMOL/L (8-16) L 04/18/18 06:00 BUN 12 mg/dL (7-18) 04/18/18 06:00 Creatinine 0.9 mg/dL (0.55-1.3) 04/18/18 06:00 Creat Clearance w eGFR > 60 (>60) 04/18/18 06:00 Random Glucose 82 mg/dL (74-106) 04/18/18 06:00 Calcium 8.8 mg/dL (8.5-10.1) 04/18/18 06:00 Total Bilirubin 0.5 mg/dL (0.2-1) 04/18/18 06:00 AST 26 U/L (15-37) 04/18/18 06:00 ALT 28 U/L (13-61) 04/18/18 06:00 Alkaline Phosphatase 76 U/L (45-117) 04/18/18 06:00 Total Protein 7.4 g/dl (6.4-8.2) 04/18/18 06:00 Albumin 3.9 g/dl (3.4-5.0) 04/18/18 06:00 Urine Color Clarissa 04/17/18 13:40 Urine Appearance Slcloudy 04/17/18 13:40 Urine pH 5.0 (5.0-8.0) 04/17/18 13:40 Ur Specific [place] 1.027 (1.010-1.035) 04/17/18 13:40 Urine Protein 1+ (NEGATIVE) H 04/17/18 13:40 Urine Glucose (UA) Negative (NEGATIVE) 04/17/18 13:40 Urine Ketones Negative (NEGATIVE) 04/17/18 13:40 Urine Blood Negative (NEGATIVE) 04/17/18 13:40 Urine Nitrite Negative (NEGATIVE) 04/17/18 13:40 Urine Bilirubin Negative (<2.0 mg/dL) 04/17/18 13:40 Urine Urobilinogen 2.0 mg/dL (0.2-1.0) 04/17/18 13:40 Ur Leukocyte Esterase Negative (NEGATIVE) 04/17/18 13:40 Urine WBC (Auto) 2 /hpf (3-5) 04/17/18 13:40 Urine RBC (Auto) 3 /hpf (0-3) 04/17/18 13:40 Ur Epithelial Cells Rare /HPF (FEW) 04/17/18 13:40 Calcium Oxalate Crystal Rare /hpf (NONE SEEN) 04/17/18 13:40 Hyaline Casts 1 /lpf 04/17/18 13:40 Urine Mucus Many 04/17/18 13:40 RPR Titer Nonreactive (NONREACTIVE) 04/18/18 06:00 aaox3 ambulating no acute distress Assessment: 04/21/18 08:39 no s/s of withdrawal sx Plan: d/c home follow up with his PCP for aftercare
--- NOTE | 2018-04-21 08:41 | DS ---
[facility] Detox Discharge Summary Admission Date: 04/17/18 Discharge Date: 04/21/18 - History Present History: Alcohol Dependence, Cocaine Dependence, Opioid Dependence - Physical Exam Results Vital Signs: Vital Signs Temperature 97.7 F 04/21/18 06:25 Pulse Rate 66 04/21/18 06:25 Respiratory Rate 16 04/21/18 06:25 Blood Pressure 119/63 04/21/18 06:25 O2 Sat by Pulse Oximetry (%) - Treatment Hospital Course: Detox Protocol Followed, Detoxed Safely, Responded well, Discharged Condition Good, Rehab Referral Accepted - Medication Discharge Medications: Ambulatory Orders traZODone HCL [Desyrel -] 100 mg PO HS #30 tablet 04/17/18 - Diagnosis (1) Alcohol dependence with uncomplicated withdrawal Status: Chronic (2) Anxiety and depression Status: Acute (3) Hypertension Status: Chronic Qualifiers: Hypertension type: essential hypertension Qualified Code(s): I10 - Essential (primary) hypertension (4) Insomnia Status: Acute (5) Weight loss Status: Acute (6) Nicotine dependence Status: Chronic Qualifiers: Nicotine product type: cigarettes Substance use status: uncomplicated Qualified Code(s): F17.210 - Nicotine dependence, cigarettes, uncomplicated (7) Cocaine dependence Status: Chronic Qualifiers: Substance use status: uncomplicated Qualified Code(s): F14.20 - Cocaine dependence, uncomplicated (8) Opioid dependence with withdrawal Status: Chronic - AMA Did Patient Leave Against Medical Advice: No (gong home; referred to out patient )
[2018-04-21 09:08] VITALS: BP 114/68; PULSE 76; TEMP 98.2
[2018-04-21] MEDS: cloNIDine HCL 0.1 MG TABLET PO SCH (09:16)
[2018-04-21] MEDS: PRENATAL VITAMINS W/ FOLIC ACID TABLET (FP) PO SCH (09:16)
[2018-04-21] MEDS: diazePAM 5 MG TABLET PO SCH (09:16)
[2018-04-21] MEDS: RANITIDINE HCL 150 MG TABLET (FP) PO SCH (09:17)
[2018-04-21] MEDS ORDERED: METHADONE HCL 10 MG TABLET (FOR DETOX USE ONLY) PO SCH (10:00)
--- NOTE | 2018-04-21 13:28 | EKG ---
Test Reason : Blood Pressure : / mmHG Vent. Rate : 047 BPM Atrial Rate : 047 BPM P-R Int : 138 ms QRS Dur : 088 ms QT Int : 464 ms P-R-T Axes : 081 072 057 degrees QTc Int : 410 ms SINUS BRADYCARDIA RIGHT ATRIAL ENLARGEMENT VOLTAGE CRITERIA FOR LEFT VENTRICULAR HYPERTROPHY ABNORMAL ECG WHEN COMPARED WITH ECG OF 19-APR-2018 11:10, QUESTIONABLE CHANGE IN QRS AXIS T WAVE INVERSION NO LONGER EVIDENT IN INFERIOR LEADS T WAVE AMPLITUDE HAS DECREASED IN LATERAL LEADS Confirmed by JUSTIN CHEW MD ([id number]) on 04/21/2018 1:28:02 PM Referred By: JORY GO Confirmed By:JUSTIN CHEW MD
[2018-04-22] MEDS ORDERED: METHADONE HCL 5 MG TABLET (FOR DETOX USE ONLY) PO SCH (06:00)
[2018-04-22] MEDS ORDERED: diazePAM 5 MG TABLET PO SCH (10:00)
== END 2018-04-21 09:18 | disposition home or self-care (01) | DRG 897 ==
LOC: YASAS 08:13 → Y6N 11:25
PROVIDERS: ADMIT Neuromusculoskeletal Medicine & OMM; ATTEND Neuromusculoskeletal Medicine & OMM
PROC: HZ2ZZZZ Detoxification Services for Substance Abuse Treatment (ICD-10-PCS; principal; 2018-04-17)
DX: F11.23 Opioid dependence with withdrawal (principal); F14.20 Cocaine dependence, uncomplicated; F10.230 Alcohol dependence with withdrawal, uncomplicated; F17.210 Nicotine dependence, cigarettes, uncomplicated; F41.9 Anxiety disorder, unspecified; F32.9 Major depressive disorder, single episode, unspecified; I10 Essential (primary) hypertension; G47.00 Insomnia, unspecified; R00.1 Bradycardia, unspecified; I51.7 Cardiomegaly; R07.9 Chest pain, unspecified
CPT/HCPCS: 36415; 80053; 81003; 81015; 85027; 86593; 93005; 93010; J0735; Q0162

== ENCOUNTER 2018-06-06 08:42 | Inpatient (IN) | payer BC ==
[2018-06-06 09:45] VITALS: BMI 21.6
--- NOTE | 2018-06-06 10:45 | HP ---
COWS - Scale Resting Pulse: 1= [place] 81-100 Sweatin= Chills/Flushing Restless Observation: 5= Unable to Sit Still Pupil Size: 0= Normal to Room Light Bone or Joint Aches: 2= Severe Diffuse Aches Runny Nose/ Eye Tearin= Runny Nose/Eyes GI Upset > 30mins: 1= Stomach Cramp Tremor Observation: 0= None Yawning Observation: 1= 1-2x During Session Anxiety or Irritability: 1=Feels Anxious/Irritable Goose Flesh Skin: 0=Smooth Skin COWS Score: 14 CIWA Score Nausea/Vomitin Muscle Tremors: 1-None Visible, but [place] Anxiety: 3 Agitation: 0-Normal Activity Paroxysmal Sweats: 2 Orientation: 0-Oriented Tacttile Disturbances: 0-None Auditory Disturbances: 0-None Visual Disturbances: 0-None Headache: 0-None Present CIWA-Ar Total Score: 9 - Admission Criteria OASAS Guidelines: Admission for Medically Managed Detox: Requires at least one of the followin. CIWA greater than 12 2. Seizures within the past 24 hours 3. Delirium tremens within the past 24 hours 4. Hallucinations within the past 24 hours 5. Acute intervention needed for co occurring medical disorder 6. Acute intervention needed for co occurring psychiatric disorder 7. Severe withdrawal that cannot be handled at a lower level of care (continued vomiting, continued diarrhea, abnormal vital signs) requiring intravenous medication and/or fluids 8. Admission ROS [facility] Allergies/Adverse Reactions: Allergies Allergy/AdvReac Type Severity Reaction Status Date / Time No Known Allergies Allergy Verified 06/06/18 09:57 History of Present Illness: pt here requesting detox from heroin use, reports 4-6 bags/day intermittently since age 19 , 24 longest sobriety [id number] w/ residential program [facility] , latest use last night , denies IVDU , denies OD, current symptoms as above ETOH use 2 x 6-pk /day since age 17 , longest sobriety as above , denies seizures, denies blackouts, + tremors , starts drinking 3-4 p.m. 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 cocaine 60-100 $ crack cocaine daily tobacco : 1/2 ppd since age 20 PMHX : HTN , gerd PSHx : denies PSych : denies , denies current SI / HI , reports insomnia, requesting Trazodone . Meds : hctz - latest 2 years ago in [place] Exam Limitations: No Limitations - Ebola screening Have you traveled outside of the country in the last 21 days: No Have you had contact with anyone from an Ebola affected area: No Have you been sick,other than usual withdrawal symptoms: No Do you have a fever: No - Review of Systems Constitutional: See HPI EENT: reports: Other (reading glasses) Respiratory: reports: No Symptoms reported Cardiac: reports: No Symptoms Reported GI: reports: See HPI : reports: No Symptoms Reported Musculoskeletal: reports: Muscle Pain Integumentary: reports: No Symptoms Reported Neuro: reports: No Symptoms reported Endocrine: reports: No Symptoms Reported Psychiatric: reports: Orientated x3, Agitated Patient History - Patient Medical History Hx Anemia: No Hx Asthma: No Hx Chronic Obstructive Pulmonary Disease (COPD): No Hx Cancer: No Hx Cardiac Disorders: No Hx Congestive Heart Failure: No Hx Hypertension: Yes (no meds) Hx Hypercholesterolemia: No Hx Pacemaker: No HX Cerebrovascular Accident: No Hx Seizures: No Hx Dementia: No Hx Diabetes: No Hx Gastrointestinal Disorders: No (GERD) Hx Liver Disease: No Hx Genitourinary Disorders: No Hx Sexually Transmitted Disorders: No Hx Renal Disease (ESRD): No Hx Thyroid Disease: No Hx Human Immunodeficiency Virus (HIV): No (NEGATIVE HX last 2015 ) Hx Hepatitis C: No (negative) Hx Depression: No Hx Suicide Attempt: No Hx Bipolar Disorder: No Hx Schizophrenia: No - Patient Surgical History Past Surgical History: No Hx Neurologic Surgery: No Hx Cataract Extraction: No Hx Cardiac Surgery: No Hx Lung Surgery: No Hx Breast Surgery: No Hx Breast Biopsy: No Hx Abdominal Surgery: No Hx Appendectomy: No Hx Cholecystectomy: No Hx Genitourinary Surgery: No Hx Section: No Hx Orthopedic Surgery: No Anesthesia Reaction: No - PPD History Previous Implant?: No Documented Results: Positive w/o proof Implanted On Prior [facility] Admission?: No - Smoking Cessation Smoking history: Current every day smoker Have you smoked in the past 12 months: Yes Aproximately how many cigarettes per day: 10 Hx Chewing Tobacco Use: No Initiated information on smoking cessation: No - Substances Abused Heroin Route: Inhalation Frequency: Daily Amount used: 5-6 bags Age of first use: 19 Date of Last Use: 06/05/18 Crack Route: Smoking Frequency: Daily Amount used: $100 Age of first use: 19 Date of Last Use: 06/05/18 Alcohol Route: Oral Frequency: Daily Amount used: 2 6pk beer Age of first use: 17 Date of Last Use: 06/05/18 Family Disease History - Family Disease History Family Disease History: [place]: Father, Mother, Other: Father, Mother Admission Physical Exam [facility] - Vital Signs Vital Signs: Vital Signs - 24 hr 06/06/18 09:43 Temperature 98.4 F Pulse Rate 85 Respiratory 18 Rate Blood Pressure 150/106 H - Physical General Appearance: Yes: Mild Distress, Anxious HEENTM: Yes: EOMI, Hearing grossly Normal, Normocephalic, Normal Voice Respiratory: Yes: Chest Non-Tender, Lungs Clear, Normal Breath Sounds Neck: Yes: No masses,lesions,Nodules, Trachea in good position Cardiology: Yes: Regular Rhythm, Regular Rate, S1, S2 Abdominal: Yes: Non Tender, Soft Musculoskeletal: Yes: full range of Motion, Gait Steady Extremities: Yes: Normal Range of Motion, Non-Tender 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: Yes: Motor Strength 5/5 - Diagnostic (1) Alcohol dependence with uncomplicated withdrawal Current Visit: Yes Status: Acute (2) Cocaine dependence Current Visit: Yes Status: Chronic Qualifiers: Substance use status: uncomplicated Qualified Code(s): F14.20 - Cocaine dependence, uncomplicated (3) Nicotine dependence Current Visit: Yes Status: Chronic Qualifiers: Nicotine product type: cigarettes Substance use status: uncomplicated Qualified Code(s): F17.210 - Nicotine dependence, cigarettes, uncomplicated (4) Opioid dependence with withdrawal Current Visit: Yes Status: Acute BHS Breath Alcohol Content Breath Alcohol Content: 0 Urine Drug Screen - Results Drug Screen Negative: No Urine Drug Screen Results: AVNI-Cocaine, OPI-Opiates Inpatient Rehab Admission - Rehab Decision to Admit Inpatient rehab admission?: No
[2018-06-06] MEDS ORDERED: DICYCLOMINE HCL 10 MG CAPSULE PO PRN (10:50)
[2018-06-06] MEDS ORDERED: ACETAMINOPHEN 325 MG TABLET (FP) PO PRN ×2 (10:50)
[2018-06-06] MEDS ORDERED: cloNIDine HCL 0.1 MG TABLET PO PRN (10:50)
[2018-06-06] MEDS ORDERED: IBUPROFEN 400 MG TABLET (FP) PO PRN (10:50)
[2018-06-06] MEDS ORDERED: METHOCARBAMOL 500 MG TABLET PO PRN (10:50)
[2018-06-06] MEDS ORDERED: NICOTINE POLACRILEX 2 MG GUM BUC PRN (10:50)
[2018-06-06] MEDS ORDERED: MAGNESIUM HYDROX 2400MG/30ML ORAL SUSPENSION 30 ML CUP PO PRN (10:50)
[2018-06-06] MEDS ORDERED: MENTHOL/PHENOL 1 EACH UD MM PRN (10:50)
[2018-06-06] MEDS ORDERED: MAG HYDROX/AL HYDROX/SIMETH 30 ML UNIT-DOSE CUP PO PRN (10:50)
[2018-06-06] MEDS ORDERED: MAGNESIUM CITRATE 300 ML BOTTLE PO PRN (10:50)
[2018-06-06] MEDS ORDERED: MELATONIN 5 MG TABLETS PO PRN (10:50)
[2018-06-06] MEDS ORDERED: METHADONE HCL 10 MG TABLET (FOR DETOX USE ONLY) PO ONE (11:40)
[2018-06-06] MEDS: diazePAM 5 MG TABLET PO PRN ×2 (12:26→17:26)
[2018-06-06] MEDS: diazePAM 5 MG TABLET PO SCH ×2 (15:00→22:05)
[2018-06-06] MEDS ORDERED: traZODone HCL 50 MG TABLET (FP) PO SCH (22:00)
[2018-06-06] MEDS ORDERED: THIAMINE HCL 100 MG TABLET (FP) PO SCH (22:00)
[2018-06-07] MEDS: diazePAM 5 MG TABLET PO SCH (06:32)
[2018-06-07 09:47] VITALS: BP 131/76; PULSE 68; TEMP 97.7
[2018-06-07] MEDS ORDERED: PRENATAL VITAMINS W/ FOLIC ACID TABLET (FP) PO SCH (10:00)
[2018-06-07] MEDS ORDERED: METHADONE HCL 5 MG TABLET (FOR DETOX USE ONLY) PO ONE (10:00)
[2018-06-07] MEDS: diazePAM 5 MG TABLET PO PRN (10:07)
[2018-06-07 12:50] LABS: HEMATOCRIT 35.1 % (35.4-49); HEMOGLOBIN 11.8 GM/dL (11.7-16.9); MCH 32.9 pg (25.7-33.7); MCHC 33.5 g/dl (32.0-35.9); MEAN CELL VOLUME 98.4 fl (80-96); MEAN PLT VOLUME 10.5 fl (7.5-11.1); PLATELET COUNT 213 K/MM3 (134-434); RBC 3.57 M/mm3 (4.00-5.60); RDW 13.6 % (11.9-15.9); WHITE BLOOD COUNT 4.8 K/mm3 (4.0-10.0)
[2018-06-07 13:25] LABS: ALBUMIN 3.8 g/dl (3.4-5.0); ALK PHOS 94 U/L (45-117); ANION GAP 5 MMOL/L (8-16); BILIRUBIN,TOTAL 0.3 mg/dL (0.2-1); BLOOD UREA NITROGEN 15 mg/dL (7-18); CALCIUM 8.8 mg/dL (8.5-10.1); CHLORIDE 106 mmol/L (98-107); CO2 27 mmol/L (21-32); CREATININE 0.9 mg/dL (0.55-1.3); GLUCOSE,RANDOM 93 mg/dL (74-106); POTASSIUM 4.2 mmol/L (3.5-5.1); SGOT/AST 16 U/L (15-37); SGPT/ALT 17 U/L (13-61); SODIUM 138 mmol/L (136-145); TOT PROT 7.6 g/dl (6.4-8.2)
[2018-06-07] MEDS ORDERED: diazePAM 5 MG TABLET PO SCH (14:00)
--- NOTE | 2018-06-07 14:49 | DS ---
[facility] Detox Discharge Summary Admission Date: 06/06/18 Discharge Date: 06/07/18 - History Present History: Alcohol Dependence Pertinent Past History: pt left today after being admitted yesterday. Pt states that the dose is too low and the length of stay is too little. And then stated someone in his family and he needs to leave. Arranged for pt to be followed in [facility] methadone tomorrow morning- has a 7am appt- d/w pt the importance of medication assisted treatment- pt understood and agreed for f/u tomorrow. - Physical Exam Results Vital Signs: Vital Signs Temperature 97.7 F 06/07/18 09:46 Pulse Rate 68 06/07/18 09:46 Respiratory Rate 18 06/07/18 09:46 Blood Pressure 131/76 06/07/18 09:46 O2 Sat by Pulse Oximetry (%) - Medication Discharge Medications: Ambulatory Orders NK [No Known Home Medication] 06/06/18 - AMA Did Patient Leave Against Medical Advice: Yes
[2018-06-08] MEDS ORDERED: diazePAM 5 MG TABLET PO ONE (06:00)
[2018-06-08] MEDS ORDERED: METHADONE HCL 10 MG TABLET (FOR DETOX USE ONLY) PO ONE (10:00)
[2018-06-09] MEDS ORDERED: METHADONE HCL 5 MG TABLET (FOR DETOX USE ONLY) PO ONE (06:00)
== END 2018-06-07 10:51 | disposition left against medical advice (07) | DRG 894 ==
LOC: YASAS 08:42 → Y6N 11:24
PROVIDERS: ADMIT Surgery; ATTEND Surgery
PROC: HZ2ZZZZ Detoxification Services for Substance Abuse Treatment (ICD-10-PCS; principal; 2018-06-06)
DX: F11.23 Opioid dependence with withdrawal (principal); F14.20 Cocaine dependence, uncomplicated; F10.230 Alcohol dependence with withdrawal, uncomplicated; F17.210 Nicotine dependence, cigarettes, uncomplicated; I10 Essential (primary) hypertension; K21.9 Gastro-esophageal reflux disease without esophagitis
CPT/HCPCS: 36415; 80053; 85027; J0735

== ENCOUNTER 2018-12-12 08:58 | Inpatient (IN) | payer BC ==
[2018-12-12 09:29] VITALS: BMI 21.6
--- NOTE | 2018-12-12 10:40 | HP ---
COWS - Scale Resting Pulse: 0= [place] 80 or Below Sweatin= Chills/Flushing Restless Observation: 1= Difficult to Sit Still Pupil Size: 1= Pupils >than Normal Bone or Joint Aches: 1= Mild Discomfort Runny Nose/ Eye Tearin= Runny Nose/Eyes GI Upset > 30mins: 3= Vomiting/Diarrhea Tremor Observation: 2= Slight Tremor Visible Yawning Observation: 1= 1-2x During Session Anxiety or Irritability: 1=Feels Anxious/Irritable Goose Flesh Skin: 0=Smooth Skin COWS Score: 13 CIWA Score Nausea/Vomitin Muscle Tremors: 2 Anxiety: 1-Mildly Anxious Agitation: 0-Normal Activity Paroxysmal Sweats: 1-Minimal Palms Moist Orientation: 0-Oriented Tacttile Disturbances: 0-None Auditory Disturbances: 0-None Visual Disturbances: 0-None Headache: 0-None Present CIWA-Ar Total Score: 6 - Admission Criteria OAS Guidelines: Admission for Medically Managed Detox: Requires at least one of the followin. CIWA greater than 12 2. Seizures within the past 24 hours 3. Delirium tremens within the past 24 hours 4. Hallucinations within the past 24 hours 5. Acute intervention needed for co occurring medical disorder 6. Acute intervention needed for co occurring psychiatric disorder 7. Severe withdrawal that cannot be handled at a lower level of care (continued vomiting, continued diarrhea, abnormal vital signs) requiring intravenous medication and/or fluids 8. 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 Wants to get better to live a better life. Heroin: 4-5 bags a day uses every day, snorts heroin and never injected, started at age 20; has withdrawn in the past (runny nose, vomiting, stomach cramps, sweats), never had a seizure Alcohol: two 6 packs of Coors Lite beer (12oz) per day, drinks every day since age 27, has withdrawn from alcohol in the past (starts to shake from withdrawals ), never had a seizure Cocaine: $40-80 per day, smoking cocaine every day starting at age 20 Cigarettes: 1/2 pack per day for 36 years Surgery: none Allergies: none Family History: no family history of drug or alcohol use Social: lives with his cousin in a house, no drugs in the house; has a 36 year old son, supportive of him becoming clean 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 Loss EENT: reports: Nose Congestion Respiratory: reports: Shortness of Breath Cardiac: reports: No Symptoms Reported GI: reports: Diarrhea, Nausea : reports: No Symptoms Reported Musculoskeletal: reports: No Symptoms Reported Integumentary: reports: No Symptoms Reported Neuro: reports: No Symptoms reported Endocrine: reports: No Symptoms Reported Hematology: reports: No Symptoms Reported Psychiatric: reports: Judgement Intact, Mood/Affect Appropiate, Orientated x3, Anxious Patient History - Patient Medical History Hx Anemia: No Hx Asthma: No Hx Chronic Obstructive Pulmonary Disease (COPD): No Hx Cancer: No Hx Cardiac Disorders: No Hx Congestive Heart Failure: No Hx Hypertension: Yes (no meds) Hx Hypercholesterolemia: No Hx Pacemaker: No HX Cerebrovascular Accident: No Hx Seizures: No Hx Dementia: No Hx Diabetes: No Hx Gastrointestinal Disorders: No (GERD) Hx Liver Disease: No Hx Genitourinary Disorders: No Hx Sexually Transmitted Disorders: No Hx Renal Disease (ESRD): No Hx Thyroid Disease: No Hx Human Immunodeficiency Virus (HIV): No (NEGATIVE HX last 2015 ) Hx Hepatitis C: No (negative) Hx Depression: No Hx Suicide Attempt: No Hx Bipolar Disorder: No Hx Schizophrenia: No - Patient Surgical History Past Surgical History: No Hx Neurologic Surgery: No Hx Cataract Extraction: No Hx Cardiac Surgery: No Hx Lung Surgery: No Hx Breast Surgery: No Hx Breast Biopsy: No Hx Abdominal Surgery: No Hx Appendectomy: No Hx Cholecystectomy: No Hx Genitourinary Surgery: No Hx Section: No Hx Orthopedic Surgery: No Anesthesia Reaction: No - Smoking Cessation Smoking history: Current every day smoker Have you smoked in the past 12 months: Yes Aproximately how many cigarettes per day: 10 Hx Chewing Tobacco Use: No Initiated information on smoking cessation: Yes 'Breaking Loose' booklet given: 12/12/18 - Substances abused Alcohol Substance route: Oral Frequency: Daily Amount used: beers- 6-12 12oz cans Age of first use: 28 Date of last use: 12/11/18 Heroin Substance route: Inhalation Frequency: Daily Amount used: 5 bags Age of first use: 20 Date of last use: 12/11/18 Cocaine Substance route: Smoking Frequency: Daily Amount used: $100 Age of first use: 28 Date of last use: 12/11/18 Admission Physical Exam [facility] - Vital Signs Vital Signs: Vital Signs - 24 hr 12/12/18 09:24 Temperature 98.1 F Pulse Rate 69 Respiratory 18 Rate Blood Pressure 133/87 - Physical General Appearance: Yes: Within Normal Limits, Nourished HEENTM: Yes: Within Normal Limits, Hearing grossly Normal, Normocephalic, Normal Voice Respiratory: Yes: Within Normal Limits, Chest Non-Tender, Lungs Clear, Normal Breath Sounds Breast: Yes: Within Normal Limits, Axillae without masses, No Discharge, No masses Cardiology: Yes: Regular Rhythm, Regular Rate Abdominal: Yes: Normal Bowel Sounds, Non Tender, Flat, Soft Genitourinary: Yes: Within Normal Limits Back: Yes: Within Normal Limits, Normal Inspection 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: 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 intact, Fully Oriented, Alert, Motor Strength 5/5, Normal Mood/Affect, Normal Response Integumentary: Yes: Normal Color, Dry - Diagnostic (1) Alcohol dependence with uncomplicated withdrawal Current Visit: No Status: Acute (2) Opioid dependence with withdrawal Current Visit: No Status: Acute Cleared for Admission S - Detox or Rehab [facility] Level of Care: Medically Managed Breathalyzer - Breathalyzer Breathalyzer: 0 Urine Drug Screen - Test Device Lot number: [id number] Expiration date: 08/12/19 - Control Is test valid?: Yes - Results Drug screen NEGATIVE: No Urine drug screen results: AVNI-Cocaine, FEN-Fentanyl, MOP-Opiates, OXY-Oxycodone Inpatient Rehab Admission - Rehab Decision to Admit Inpatient rehab admission?: No
[2018-12-12] MEDS ORDERED: IBUPROFEN 400 MG TABLET (FP) PO PRN (11:01)
[2018-12-12] MEDS ORDERED: MAGNESIUM HYDROX 2400MG/30ML ORAL SUSPENSION 30 ML CUP PO PRN (11:01)
[2018-12-12] MEDS ORDERED: BISMUTH SUBSALICYLATE 262 MG/15 ML BTL PO PRN (11:01)
[2018-12-12] MEDS ORDERED: MAGNESIUM CITRATE 300 ML BOTTLE PO PRN (11:01)
[2018-12-12] MEDS ORDERED: chlordiazePOXIDE HCL 10 MG CAPSULE PO PRN (11:01)
[2018-12-12] MEDS ORDERED: cloNIDine HCL 0.1 MG TABLET PO PRN (11:01)
[2018-12-12] MEDS ORDERED: DICYCLOMINE HCL 10 MG CAPSULE PO PRN (11:01)
[2018-12-12] MEDS ORDERED: traZODone HCL 50 MG TABLET (FP) PO PRN (11:01)
[2018-12-12] MEDS ORDERED: MAG HYDROX/AL HYDROX/SIMETH 30 ML UNIT-DOSE CUP PO PRN (11:01)
[2018-12-12] MEDS ORDERED: METHOCARBAMOL 500 MG TABLET PO PRN (11:01)
[2018-12-12] MEDS ORDERED: MELATONIN 5 MG TABLETS PO PRN (11:01)
[2018-12-12] MEDS ORDERED: hydrOXYzine PAMOATE 25 MG CAPSULE (FP) PO PRN (11:01)
[2018-12-12] MEDS ORDERED: MENTHOL/PHENOL 1 EACH UD MM PRN (11:01)
[2018-12-12] MEDS ORDERED: ACETAMINOPHEN 325 MG TABLET (FP) PO PRN ×2 (11:01)
--- NOTE | 2018-12-12 11:10 | PN ---
Teaching Attending Note Name of Resident: Julián Rick ATTENDING PHYSICIAN STATEMENT I saw and evaluated the patient. I reviewed the resident's note and discussed the case with the resident. I agree with the resident's findings and plan as documented. SUBJECTIVE: pt here requesting detox from heroin use, reports 4-6 bags/day intermittently since age 19, longest sobriety [id number] w/ [place] [facility] [place] , latest use last night 6 pm , denies IVDU , denies OD, current symptoms as above ETOH use 2 x 6-pk /day since age 17, longest sobriety as above, denies seizures , denies blackouts, + tremors , starts drinking around 3-4 p.m. cocaine 60-100 $ crack cocaine daily tobacco : 1/2 ppd since age 20 PMHX : HTN , gerd PSHx : denies PSych : denies , denies current SI / HI , reports insomnia OBJECTIVE: Vital Signs - 24 hr 12/12/18 09:24 Temperature 98.1 F Pulse Rate 69 Respiratory 18 Rate Blood Pressure 133/87 ASSESSMENT AND PLAN: Opioid dependence - Methadone taper alcohol dependence - Librium taper
[2018-12-12] MEDS ORDERED: METHADONE HCL 10 MG TABLET (FOR DETOX USE ONLY) PO ONE (11:50)
[2018-12-12] MEDS: chlordiazePOXIDE HCL 25 MG CAPSULE PO SCH ×2 (12:02→22:07)
[2018-12-12 15:18] LABS: HEMATOCRIT 38.3 % (35.4-49); HEMOGLOBIN 12.5 GM/dL (11.7-16.9); MCH 32.4 pg (25.7-33.7); MCHC 32.7 g/dl (32.0-35.9); MEAN CELL VOLUME 99.2 fl (80-96); MEAN PLT VOLUME 10.4 fl (7.5-11.1); PLATELET COUNT 244 K/MM3 (134-434); RBC 3.86 M/mm3 (4.00-5.60); WHITE BLOOD COUNT 3.8 K/mm3 (4.0-10.0)
[2018-12-12 15:25] LABS: ALBUMIN 3.8 g/dl (3.4-5.0); BILIRUBIN,TOTAL 0.4 mg/dL (0.2-1); BLOOD UREA NITROGEN 11.9 mg/dL (7-18); CALCIUM 8.9 mg/dL (8.5-10.1); POTASSIUM 4.5 mmol/L (3.5-5.1); TOT PROT 7.7 g/dl (6.4-8.2)
[2018-12-12] MEDS ORDERED: THIAMINE HCL 100 MG TABLET (FP) PO SCH (22:00)
[2018-12-13] MEDS: chlordiazePOXIDE HCL 25 MG CAPSULE PO SCH (05:17)
[2018-12-13 06:17] VITALS: TEMP 97.7
[2018-12-13 09:21] VITALS: BP 145/83; PULSE 67
[2018-12-13] MEDS ORDERED: PRENATAL VITAMINS W/ FOLIC ACID TABLET (FP) PO SCH (10:00)
[2018-12-13] MEDS ORDERED: METHADONE HCL 5 MG TABLET (FOR DETOX USE ONLY) PO ONE (10:00)
--- NOTE | 2018-12-13 15:13 | PN ---
[facility] Progress Note Note: Propeller Engineer went to make rounds on pt this afternoon and pt was not found to be in his room. commercial lines underwriter asked about pt whereabouts and was told by [employer] that pt walked off the unit. commercial lines underwriter asked all nurses if they knew that pt had eloped and nobody seem to know what happened to the patient. Propeller Engineer was also told that pt was fully dressed and had spoken with a counselor however cannot say who was the counselor that he spoke with. [employer] states that she received a phone call from [employer] that there was a patient downstairs asking for his belonging. It appears that pt walked off the unit/eloped.
--- NOTE | 2018-12-13 15:16 | DS ---
[facility] Detox Discharge Summary Admission Date: 12/12/18 - History Present History: Alcohol Dependence, Cocaine Dependence, Opioid Dependence - Physical Exam Results Vital Signs: Vital Signs Temperature 97.7 F 12/13/18 09:20 Pulse Rate 67 12/13/18 09:20 Respiratory Rate 18 12/13/18 09:20 Blood Pressure 145/83 12/13/18 09:20 O2 Sat by Pulse Oximetry (%) Pertinent Admission Physical Exam Findings: pt was admitted in withdrawals Laboratory Tests 12/12/18 12/12/18 12/12/18 11:45 11:45 11:45 WBC 3.8 L RBC 3.86 L Hgb 12.5 Hct 38.3 MCV 99.2 H MCH 32.4 MCHC 32.7 RDW 14.0 Plt Count 244 MPV 10.4 Sodium 140 Potassium 4.5 Chloride 107 Carbon Dioxide 28 Anion Gap 6 L BUN 11.9 Creatinine 1.0 Est GFR (CKD-EPI)AfAm 96.40 Est GFR (CKD-EPI)NonAf 83.18 Random Glucose 71 L Calcium 8.9 Total Bilirubin 0.4 AST 19 ALT 17 Alkaline Phosphatase 75 Total Protein 7.7 Albumin 3.8 RPR Titer Nonreactive unable to assess pt; pt eloped from unit. - Medication Discharge Medications: Ambulatory Orders NK [No Known Home Medication] 06/06/18 - Diagnosis (1) Alcohol dependence with uncomplicated withdrawal Current Visit: Yes Status: Chronic (2) Anxiety and depression Current Visit: No Status: Acute (3) Insomnia Current Visit: No Status: Acute (4) Opioid dependence with withdrawal Current Visit: Yes Status: Chronic (5) Cocaine dependence Current Visit: Yes Status: Chronic Qualifiers: Substance use status: uncomplicated Qualified Code(s): F14.20 - Cocaine dependence, uncomplicated (6) Hypertension Current Visit: No Status: Chronic Qualifiers: Hypertension type: essential hypertension Qualified Code(s): I10 - Essential (primary) hypertension (7) Nicotine dependence Current Visit: Yes Status: Chronic Qualifiers: Nicotine product type: cigarettes Substance use status: uncomplicated Qualified Code(s): F17.210 - Nicotine dependence, cigarettes, uncomplicated - AMA Did Patient Leave Against Medical Advice: No (PT ELOPED.)
[2018-12-14] MEDS ORDERED: chlordiazePOXIDE 5 MG CAPSULE PO SCH (05:00)
[2018-12-14] MEDS ORDERED: METHADONE HCL 10 MG TABLET (FOR DETOX USE ONLY) PO ONE (10:00)
[2018-12-15] MEDS ORDERED: chlordiazePOXIDE HCL 10 MG CAPSULE PO PRN
[2018-12-15] MEDS ORDERED: chlordiazePOXIDE HCL 10 MG CAPSULE PO SCH (05:00)
[2018-12-15] MEDS ORDERED: METHADONE HCL 5 MG TABLET (FOR DETOX USE ONLY) PO ONE (06:00)
[2018-12-16] MEDS ORDERED: chlordiazePOXIDE HCL 10 MG CAPSULE PO ONE (05:00)
== END 2018-12-13 13:00 | disposition left against medical advice (07) | DRG 894 ==
LOC: YASAS 08:58 → Y6N 11:15
PROVIDERS: ADMIT Surgery; ATTEND Surgery
PROC: HZ2ZZZZ Detoxification Services for Substance Abuse Treatment (ICD-10-PCS; principal; 2018-12-12)
DX: F11.23 Opioid dependence with withdrawal (principal); F14.20 Cocaine dependence, uncomplicated; F10.230 Alcohol dependence with withdrawal, uncomplicated; F17.210 Nicotine dependence, cigarettes, uncomplicated; F41.9 Anxiety disorder, unspecified; F32.9 Major depressive disorder, single episode, unspecified; I10 Essential (primary) hypertension; G47.00 Insomnia, unspecified; K21.9 Gastro-esophageal reflux disease without esophagitis
CPT/HCPCS: 36415; 80053; 85027; 86593

== ENCOUNTER 2019-02-28 08:42 | Inpatient (IN) | payer BC ==
[2019-02-28 09:57] VITALS: BMI 22.8
--- NOTE | 2019-02-28 10:21 | HP ---
COWS - Scale Resting Pulse: 1= MO 81-100 Sweatin= Beads of Sweat on Face Restless Observation: 1= Difficult to Sit Still Pupil Size: 1= Pupils >than Normal Bone or Joint Aches: 2= Severe Diffuse Aches Runny Nose/ Eye Tearin= Runny Nose/Eyes GI Upset > 30mins: 3= Vomiting/Diarrhea Tremor Observation: 2= Slight Tremor Visible Yawning Observation: 0= None Anxiety or Irritability: 2=Irritable/Anxious Goose Flesh Skin: 0=Smooth Skin COWS Score: 17 CIWA Score Nausea/Vomitin Muscle Tremors: 1-None Visible, but [place] Anxiety: 4-Mod. Anxious/Guarded Agitation: 4-Moderately Restless Paroxysmal Sweats: 4-Forehead w/Sweat Beads Orientation: 1-Uncertain about Date Tacttile Disturbances: 1-Very Mild Itch/Numbness Auditory Disturbances: 0-None Visual Disturbances: 0-None Headache: 1-Very Mild CIWA-Ar Total Score: 19 - Admission Criteria OASAS Guidelines: Admission for Medically Managed Detox: Requires at least one of the followin. CIWA greater than 12 2. Seizures within the past 24 hours 3. Delirium tremens within the past 24 hours 4. Hallucinations within the past 24 hours 5. Acute intervention needed for co occurring medical disorder 6. Acute intervention needed for co occurring psychiatric disorder 7. Severe withdrawal that cannot be handled at a lower level of care (continued vomiting, continued diarrhea, abnormal vital signs) requiring intravenous medication and/or fluids 8. 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 Wants to get better to live a better life. Last admitted to detox in 12/2018 but left right away after admission. He says he wasn't really ready to be treated but now want to complete detox and then proceed to rehab. Heroin: 4-5 bags a day uses every day, snorts heroin and never injected, started at age 20; has withdrawn in the past (runny nose, vomiting, stomach cramps, sweats), never had a seizure Alcohol: two 6 packs of Coors Lite beer (12oz) per day, drinks every day since age 27, has withdrawn from alcohol in the past (starts to shake from withdrawals ), never had a seizure Cocaine: $40-80 per day, smoking cocaine every day starting at age 20 Cigarettes: 1/2 pack per day for 36 years Surgery: none Allergies: none Family History: no family history of drug or alcohol use Social: lives with his cousin in a house, no drugs in the house; has a 36 year old son, supportive of him becoming clean 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 History Source: Patient Limitations to Obtaining History: No Limitations - Past Medical History Cardiovascular: Yes: HTN Gastrointestinal: Yes: GERD - Past Surgical History Past Surgical History: Yes: None - Smoking History Smoking history: Current every day smoker Have you smoked in the past 12 months: Yes Aproximately how many cigarettes per day: 10 - Alcohol/Substance Use Hx Alcohol Use: Yes (2 packs of 6 beers daily) History of Substance Use: reports: Cocaine, Heroin, Marijuana - Social History Usual Living Arrangement: Yes: Alone Do you think of yourself as: Straight/Heterosexual ADL: Independent 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 Loss EENT: reports: No Symptoms Reported Respiratory: reports: No Symptoms reported Cardiac: reports: No Symptoms Reported GI: reports: No Symptoms Reported : reports: No Symptoms Reported Musculoskeletal: reports: No Symptoms Reported Integumentary: reports: No Symptoms Reported Neuro: reports: No Symptoms reported Endocrine: reports: No Symptoms Reported Hematology: reports: No Symptoms Reported Psychiatric: reports: Judgement Intact, Mood/Affect Appropiate, Orientated x3 Other Systems: Reviewed and Negative Patient History - Patient Medical History Hx Anemia: No Hx Asthma: No Hx Chronic Obstructive Pulmonary Disease (COPD): No Hx Cancer: No Hx Cardiac Disorders: No Hx Congestive Heart Failure: No Hx Hypertension: Yes (no meds) Hx Hypercholesterolemia: No Hx Pacemaker: No HX Cerebrovascular Accident: No Hx Seizures: No Hx Dementia: No Hx Diabetes: No Hx Gastrointestinal Disorders: Yes (GERD) Hx Liver Disease: No Hx Genitourinary Disorders: No Hx Sexually Transmitted Disorders: No Hx Renal Disease (ESRD): No Hx Thyroid Disease: No Hx Human Immunodeficiency Virus (HIV): No (NEGATIVE HX last 2015 ) Hx Hepatitis C: No (negative) Hx Depression: No Hx Suicide Attempt: No Hx Bipolar Disorder: No Hx Schizophrenia: No - Patient Surgical History Past Surgical History: No Hx Neurologic Surgery: No Hx Cataract Extraction: No Hx Cardiac Surgery: No Hx Lung Surgery: No Hx Breast Surgery: No Hx Breast Biopsy: No Hx Abdominal Surgery: No Hx Appendectomy: No Hx Cholecystectomy: No Hx Genitourinary Surgery: No Hx Section: No Hx Orthopedic Surgery: No Anesthesia Reaction: No - PPD History Previous Implant?: No Documented Results: Positive w/o proof Implanted On Prior [facility] Admission?: No Date: 02/16/17 Results: negative PPD to be Administered?: No - Smoking Cessation Smoking history: Current every day smoker Have you smoked in the past 12 months: Yes Aproximately how many cigarettes per day: 10 Hx Chewing Tobacco Use: No Initiated information on smoking cessation: Yes 'Breaking Loose' booklet given: 02/28/19 - Substances abused Alcohol Substance route: Oral Frequency: Daily Amount used: 12-PACK OF BEERS Age of first use: 28 Date of last use: 02/27/19 Heroin Substance route: Inhalation Frequency: Daily Amount used: 5 bags Age of first use: 20 Date of last use: 02/26/19 Cocaine Substance route: Smoking Frequency: 3-6 times per week Amount used: $3 GRAMS/PER DAY Age of first use: 28 Date of last use: 02/27/19 Admission Physical Exam [facility] - Vital Signs Vital Signs: Vital Signs - 24 hr 02/28/19 09:52 Temperature 98.8 F Pulse Rate 81 Respiratory 17 Rate Blood Pressure 144/92 - Physical General Appearance: Yes: Mild Distress, Tremorous, Irritable, Sweating, Anxious HEENTM: Yes: EOMI, Hearing grossly Normal, Normal ENT Inspection, Normocephalic , Normal Voice, LOS, Pharynx Normal, Tm's normal Respiratory: Yes: Chest Non-Tender, Lungs Clear, Normal Breath Sounds, No Respiratory Distress, No Accessory Muscle Use Neck: Yes: No masses,lesions,Nodules, Supple, Trachea in good position Breast: Yes: Within Normal Limits Cardiology: Yes: Regular Rhythm, Regular Rate, S1, S2 Abdominal: Yes: Normal Bowel Sounds, Non Tender, Flat, Soft Genitourinary: Yes: Within Normal Limits Back: Yes: Normal Inspection Musculoskeletal: Yes: full range of Motion, Gait Steady, Pelvis Stable Extremities: Yes: Normal Capillary Refill, Normal Inspection, Normal Range of Motion, Non-Tender 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: 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: 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 intact, Fully Oriented, Alert, Motor Strength 5/5, Normal Mood/Affect, Normal Response Integumentary: Yes: Normal Color, Warm Lymphatic: Yes: Within Normal Limits - Diagnostic (1) Anxiety and depression Current Visit: Yes Status: Acute (2) Insomnia Current Visit: Yes Status: Acute (3) Alcohol dependence with uncomplicated withdrawal Current Visit: Yes Status: Chronic (4) Cocaine dependence Current Visit: Yes Status: Chronic Qualifiers: Substance use status: uncomplicated Qualified Code(s): F14.20 - Cocaine dependence, uncomplicated (5) Hypertension Current Visit: Yes Status: Chronic Qualifiers: Hypertension type: essential hypertension Qualified Code(s): I10 - Essential (primary) hypertension (6) Nicotine dependence Current Visit: Yes Status: Chronic Qualifiers: Nicotine product type: cigarettes Substance use status: uncomplicated Qualified Code(s): F17.210 - Nicotine dependence, cigarettes, uncomplicated (7) Opioid dependence with withdrawal Current Visit: Yes Status: Chronic Cleared for Admission S - Detox or Rehab [facility] Level of Care: Medically Managed Detox Regimen/Protocol: Methadone/Librium Claeared for Rehab Admission: No Screened but not Admitted - Documentation of Visit Screened but not Admitted: No Breathalyzer - Breathalyzer Breathalyzer: 0 (drank yesterday and only beer) Urine Drug Screen - Test Device Lot number: [id number] Expiration date: 10/11/20 - Control Is test valid?: Yes - Results Drug screen NEGATIVE: No Urine drug screen results: AVNI-Cocaine, MOP-Opiates, BZO-Benzodiazepines Inpatient Rehab Admission - Rehab Decision to Admit Inpatient rehab admission?: No
[2019-02-28] MEDS ORDERED: MELATONIN 5 MG TABLETS PO PRN (10:26)
[2019-02-28] MEDS ORDERED: hydrOXYzine PAMOATE 25 MG CAPSULE (FP) PO PRN (10:26)
[2019-02-28] MEDS ORDERED: chlordiazePOXIDE HCL 25 MG CAPSULE PO PRN (10:26)
[2019-02-28] MEDS ORDERED: MAGNESIUM HYDROX 2400MG/30ML ORAL SUSPENSION 30 ML CUP PO PRN (10:26)
[2019-02-28] MEDS ORDERED: METHOCARBAMOL 500 MG TABLET PO PRN (10:26)
[2019-02-28] MEDS ORDERED: MENTHOL/PHENOL 1 EACH UD MM PRN (10:26)
[2019-02-28] MEDS ORDERED: ACETAMINOPHEN 325 MG TABLET (FP) PO PRN ×2 (10:26)
[2019-02-28] MEDS ORDERED: MAGNESIUM CITRATE 300 ML BOTTLE PO PRN (10:26)
[2019-02-28] MEDS ORDERED: METHADONE HCL 10 MG TABLET (FOR DETOX USE ONLY) PO ONE (10:26)
[2019-02-28] MEDS ORDERED: MAG HYDROX/AL HYDROX/SIMETH 30 ML UNIT-DOSE CUP PO PRN (10:26)
[2019-02-28] MEDS ORDERED: BISMUTH SUBSALICYLATE 262 MG/15 ML BTL PO PRN (10:26)
[2019-02-28] MEDS ORDERED: cloNIDine HCL 0.1 MG TABLET PO PRN (10:26)
[2019-02-28] MEDS: chlordiazePOXIDE HCL 25 MG CAPSULE PO SCH ×3 (12:21→22:04)
[2019-02-28] MEDS: LISINOPRIL 5 MG TABLET (FP) PO SCH (12:22)
[2019-02-28 14:16] LABS: HEMOGLOBIN 11.3 GM/dL (11.7-16.9); MCH 32.4 pg (25.7-33.7); MCHC 33.3 g/dl (32.0-35.9); MEAN CELL VOLUME 97.1 fl (80-96); MEAN PLT VOLUME 9.7 fl (7.5-11.1); PLATELET COUNT 234 K/MM3 (134-434); RDW 13.4 % (11.9-15.9); WHITE BLOOD COUNT 5.9 K/mm3 (4.0-10.0)
[2019-02-28 14:25] LABS: BILIRUBIN,TOTAL 0.4 mg/dL (0.2-1); BLOOD UREA NITROGEN 22.8 mg/dL (7-18); CALCIUM 8.7 mg/dL (8.5-10.1); CREATININE 1.3 mg/dL (0.55-1.3); POTASSIUM 3.8 mmol/L (3.5-5.1); TOT PROT 7.3 g/dl (6.4-8.2)
[2019-02-28] MEDS: THIAMINE HCL 100 MG TABLET (FP) PO SCH (22:04)
[2019-02-28] MEDS: SUVOREXANT 5 MG TABLET PO PRN (22:05)
[2019-02-28] MEDS: IBUPROFEN 400 MG TABLET (FP) PO PRN (23:51)
[2019-03-01] MEDS: chlordiazePOXIDE HCL 25 MG CAPSULE PO SCH ×4 (05:25→22:18)
[2019-03-01] MEDS ORDERED: METHADONE HCL 10 MG TABLET (FOR DETOX USE ONLY) ONE (08:48)
[2019-03-01] MEDS ORDERED: METHADONE HCL 5 MG TABLET (FOR DETOX USE ONLY) ONE (08:48)
--- NOTE | 2019-03-01 09:35 | PN ---
S CIWA - CIWA Score Nausea/Vomitin-Mild Nausea/No Vomiting Muscle Tremors: 4-Moderate,w/Arms Extend Anxiety: 3 Agitation: 2 Paroxysmal Sweats: 2 Orientation: 1-Uncertain about Date (date of week) Tacttile Disturbances: 1-Very Mild Itch/Numbness Auditory Disturbances: 0-None Visual Disturbances: 0-None Headache: 2-Mild CIWA-Ar Total Score: 16 [facility] COWS - Scale Resting Pulse: 0= [place] 80 or Below Sweatin= Chills/Flushing Restless Observation: 0= Sits Still Pupil Size: 1= Pupils >than Normal Bone or Joint Aches: 1= Mild Discomfort Runny Nose/ Eye Tearin= Runny Nose/Eyes GI Upset > 30mins: 2= Nausea/Diarrhea Tremor Observation of Outstretched Hands: 2= Slight Tremor Visible Yawning Observation: 2= >3x During Session Anxiety or Irritability: 2=Irritable/Anxious Goose Flesh Skin: 3=Piloerection COWS Score: 16 [facility] Progress Note (SOAP) Subjective: 58 years old male admitted on 02/28/19 for alcohol and opiate withdrawal sx management treating with librium and methadone detox regimen ate breakfast ambulating on hallway social with peers in day room discuss medication assisted treatment program burr picker narcan from pharmacy Objective: 03/01/19 09:36 Vital Signs Temperature 97.0 F L 03/01/19 09:07 Pulse Rate 64 03/01/19 09:07 Respiratory Rate 18 03/01/19 09:07 Blood Pressure 90/60 03/01/19 09:07 O2 Sat by Pulse Oximetry (%) Laboratory Last Values WBC 5.9 K/mm3 (4.0-10.0) 02/28/19 10:30 RBC 3.50 M/mm3 (4.00-5.60) L 02/28/19 10:30 Hgb 11.3 GM/dL (11.7-16.9) L 02/28/19 10:30 Hct 34.0 % (35.4-49) L 02/28/19 10:30 MCV 97.1 fl (80-96) H 02/28/19 10:30 MCH 32.4 pg (25.7-33.7) 02/28/19 10:30 MCHC 33.3 g/dl (32.0-35.9) 02/28/19 10:30 RDW 13.4 % (11.9-15.9) 02/28/19 10:30 Plt Count 234 K/MM3 (134-434) 02/28/19 10:30 MPV 9.7 fl (7.5-11.1) 02/28/19 10:30 Sodium 140 mmol/L (136-145) 02/28/19 10:30 Potassium 3.8 mmol/L (3.5-5.1) 02/28/19 10:30 Chloride 108 mmol/L (98-107) H 02/28/19 10:30 Carbon Dioxide 25 mmol/L (21-32) 02/28/19 10:30 Anion Gap 6 MMOL/L (8-16) L 02/28/19 10:30 BUN 22.8 mg/dL (7-18) H 02/28/19 10:30 Creatinine 1.3 mg/dL (0.55-1.3) 02/28/19 10:30 Est GFR (CKD-EPI)AfAm 70.20 02/28/19 10:30 Est GFR (CKD-EPI)NonAf 60.57 02/28/19 10:30 Random Glucose 94 mg/dL (74-106) 02/28/19 10:30 Calcium 8.7 mg/dL (8.5-10.1) 02/28/19 10:30 Total Bilirubin 0.4 mg/dL (0.2-1) 02/28/19 10:30 AST 23 U/L (15-37) 02/28/19 10:30 ALT 26 U/L (13-61) 02/28/19 10:30 Alkaline Phosphatase 74 U/L (45-117) 02/28/19 10:30 Total Protein 7.3 g/dl (6.4-8.2) 02/28/19 10:30 Albumin 4.0 g/dl (3.4-5.0) 02/28/19 10:30 lab noted encourage oral fluid Assessment: 03/01/19 09:37 alcohol and opiate withdrawal Plan: librium and methadone regimens
[2019-03-01] MEDS ORDERED: METHADONE (DETOX) 20 MG, METHADONE (DETOX) 5 MG PO ONE (10:00)
[2019-03-01] MEDS: PANTOPRAZOLE 20 MG TABLET (FP) PO SCH (10:06)
[2019-03-01] MEDS: PRENATAL VITAMINS W/ FOLIC ACID TABLET (FP) PO SCH (10:06)
[2019-03-01] MEDS: NICOTINE 14 MG/24 HOURS TOPICAL PATCH TD SCH (10:06)
[2019-03-01] MEDS: LISINOPRIL 5 MG TABLET (FP) PO SCH (10:07)
[2019-03-01] MEDS: IBUPROFEN 400 MG TABLET (FP) PO PRN ×2 (10:08→17:24)
[2019-03-01] MEDS: SUVOREXANT 5 MG TABLET PO PRN (22:18)
[2019-03-01] MEDS: THIAMINE HCL 100 MG TABLET (FP) PO SCH (22:18)
[2019-03-02] MEDS: chlordiazePOXIDE HCL 25 MG CAPSULE PO SCH ×4 (05:45→22:31)
[2019-03-02] MEDS ORDERED: ONDANSETRON *ODT* 4 MG TABLET SL PRN (07:23)
[2019-03-02] MEDS ORDERED: METHADONE HCL 10 MG TABLET (FOR DETOX USE ONLY) PO ONE (10:00)
[2019-03-02] MEDS: LISINOPRIL 5 MG TABLET (FP) PO SCH (10:12)
[2019-03-02] MEDS: PRENATAL VITAMINS W/ FOLIC ACID TABLET (FP) PO SCH (10:13)
[2019-03-02] MEDS: PANTOPRAZOLE 20 MG TABLET (FP) PO SCH (10:13)
[2019-03-02] MEDS: NICOTINE 14 MG/24 HOURS TOPICAL PATCH TD SCH (10:13)
[2019-03-02] MEDS ORDERED: COLLOIDAL OATMEAL 1 BAR EACH TP PRN (10:23)
--- NOTE | 2019-03-02 10:23 | PN ---
S CIWA - CIWA Score Nausea/Vomitin Muscle Tremors: 2 Anxiety: 2 Agitation: 0-Normal Activity Paroxysmal Sweats: 1-Minimal Palms Moist Orientation: 0-Oriented Tacttile Disturbances: 1-Very Mild Itch/Numbness Auditory Disturbances: 0-None Visual Disturbances: 0-None Headache: 0-None Present CIWA-Ar Total Score: 8 BHS COWS - Scale Resting Pulse: 1= [place] 81-100 Sweatin= Chills/Flushing Restless Observation: 1= Difficult to Sit Still Pupil Size: 0= Normal to Room Light Bone or Joint Aches: 1= Mild Discomfort Runny Nose/ Eye Tearin= Nasal Congestion GI Upset > 30mins: 1= Stomach Cramp Tremor Observation of Outstretched Hands: 1= Tremor [place], Not Seen Yawning Observation: 0= None Anxiety or Irritability: 1=Feels Anxious/Irritable Goose Flesh Skin: 0=Smooth Skin COWS Score: 8 BHS Progress Note (SOAP) Subjective: c/o of interrupted sleep, acid reflux, chills , sweats Objective: 03/02/19 10:22 Vital Signs Temperature 97.3 F L 03/02/19 09:46 Pulse Rate 84 03/02/19 09:46 Respiratory Rate 18 03/02/19 09:46 Blood Pressure 121/83 03/02/19 09:46 O2 Sat by Pulse Oximetry (%) Laboratory Last Values WBC 5.9 K/mm3 (4.0-10.0) 02/28/19 10:30 RBC 3.50 M/mm3 (4.00-5.60) L 02/28/19 10:30 Hgb 11.3 GM/dL (11.7-16.9) L 02/28/19 10:30 Hct 34.0 % (35.4-49) L 02/28/19 10:30 MCV 97.1 fl (80-96) H 02/28/19 10:30 MCH 32.4 pg (25.7-33.7) 02/28/19 10:30 MCHC 33.3 g/dl (32.0-35.9) 02/28/19 10:30 RDW 13.4 % (11.9-15.9) 02/28/19 10:30 Plt Count 234 K/MM3 (134-434) 02/28/19 10:30 MPV 9.7 fl (7.5-11.1) 02/28/19 10:30 Sodium 140 mmol/L (136-145) 02/28/19 10:30 Potassium 3.8 mmol/L (3.5-5.1) 02/28/19 10:30 Chloride 108 mmol/L (98-107) H 02/28/19 10:30 Carbon Dioxide 25 mmol/L (21-32) 02/28/19 10:30 Anion Gap 6 MMOL/L (8-16) L 02/28/19 10:30 BUN 22.8 mg/dL (7-18) H 02/28/19 10:30 Creatinine 1.3 mg/dL (0.55-1.3) 02/28/19 10:30 Est GFR (CKD-EPI)AfAm 70.20 02/28/19 10:30 Est GFR (CKD-EPI)NonAf 60.57 02/28/19 10:30 Random Glucose 94 mg/dL (74-106) 02/28/19 10:30 Calcium 8.7 mg/dL (8.5-10.1) 02/28/19 10:30 Total Bilirubin 0.4 mg/dL (0.2-1) 02/28/19 10:30 AST 23 U/L (15-37) 02/28/19 10:30 ALT 26 U/L (13-61) 02/28/19 10:30 Alkaline Phosphatase 74 U/L (45-117) 02/28/19 10:30 Total Protein 7.3 g/dl (6.4-8.2) 02/28/19 10:30 Albumin 4.0 g/dl (3.4-5.0) 02/28/19 10:30 RPR Titer Nonreactive (NONREACTIVE) 02/28/19 10:30 Assessment: 03/02/19 11:44 AOx3 no acute distress no adventitious breath sounds full ROM, no gait disturbance withdrawal sx Plan: increase PO fluids scheduled protonix for 6AM qd, patient reports medication workls better vannessa taken before breakfast continue to monitor
[2019-03-02] MEDS: THIAMINE HCL 100 MG TABLET (FP) PO SCH (22:31)
[2019-03-02] MEDS: HYDROCORTISONE 0.5% TOPICAL CREAM 30 GM TUBE TP SCH (23:24)
[2019-03-03] MEDS ORDERED: chlordiazePOXIDE HCL 10 MG CAPSULE PO PRN
[2019-03-03] MEDS: chlordiazePOXIDE HCL 10 MG CAPSULE PO SCH ×2 (06:13→12:16)
[2019-03-03] MEDS: PANTOPRAZOLE 20 MG TABLET (FP) PO SCH ×2 (06:13→10:32)
[2019-03-03] MEDS ORDERED: METHADONE (DETOX) 10 MG, METHADONE (DETOX) 5 MG PO ONE (10:00)
--- NOTE | 2019-03-03 10:24 | PN ---
S CIWA - CIWA Score Nausea/Vomitin-No Nausea/No Vomiting Muscle Tremors: None Anxiety: 3 Agitation: 0-Normal Activity Paroxysmal Sweats: 3 Orientation: 0-Oriented Tacttile Disturbances: 0-None Auditory Disturbances: 0-None Visual Disturbances: 0-None Headache: 1-Very Mild CIWA-Ar Total Score: 7 S COWS - Scale Resting Pulse: 0= MD 80 or Below Sweatin= Chills/Flushing Restless Observation: 1= Difficult to Sit Still Pupil Size: 0= Normal to Room Light Bone or Joint Aches: 1= Mild Discomfort Runny Nose/ Eye Tearin= None GI Upset > 30mins: 0= None Tremor Observation of Outstretched Hands: 0= None Yawning Observation: 1= 1-2x During Session Anxiety or Irritability: 2=Irritable/Anxious Goose Flesh Skin: 0=Smooth Skin COWS Score: 6 S Progress Note (SOAP) Subjective: c/o sweats, anxiety, muscle aches, and headache. Objective: 03/03/19 10:23 Vital Signs 03/03/19 03/03/19 03/03/19 03:30 06:07 09:13 Temperature 98.4 F 98.6 F Pulse Rate 75 78 Respiratory 18 18 16 Rate Blood Pressure 121/75 107/73 Lab Results WBC 5.9 K/mm3 (4.0-10.0) 02/28/19 10:30 RBC 3.50 M/mm3 (4.00-5.60) L 02/28/19 10:30 Hgb 11.3 GM/dL (11.7-16.9) L 02/28/19 10:30 Hct 34.0 % (35.4-49) L 02/28/19 10:30 MCV 97.1 fl (80-96) H 02/28/19 10:30 MCHC 33.3 g/dl (32.0-35.9) 02/28/19 10:30 RDW 13.4 % (11.9-15.9) 02/28/19 10:30 Plt Count 234 K/MM3 (134-434) 02/28/19 10:30 Sodium 140 mmol/L (136-145) 02/28/19 10:30 Potassium 3.8 mmol/L (3.5-5.1) 02/28/19 10:30 Chloride 108 mmol/L (98-107) H 02/28/19 10:30 Carbon Dioxide 25 mmol/L (21-32) 02/28/19 10:30 Anion Gap 6 MMOL/L (8-16) L 02/28/19 10:30 BUN 22.8 mg/dL (7-18) H 02/28/19 10:30 Creatinine 1.3 mg/dL (0.55-1.3) 02/28/19 10:30 Random Glucose 94 mg/dL (74-106) 02/28/19 10:30 Calcium 8.7 mg/dL (8.5-10.1) 02/28/19 10:30 Labs noted. Assessment: 03/03/19 10:23 AOX3, in no respiratory distress. Full ROM, ambulating in the unit. Withdrawal symptoms. Plan: continue detox.
[2019-03-03] MEDS: PRENATAL VITAMINS W/ FOLIC ACID TABLET (FP) PO SCH (10:32)
[2019-03-03] MEDS: LISINOPRIL 5 MG TABLET (FP) PO SCH (10:32)
[2019-03-03] MEDS: NICOTINE 14 MG/24 HOURS TOPICAL PATCH TD SCH (10:33)
[2019-03-03] MEDS ORDERED: METHADONE HCL 5 MG TABLET (FOR DETOX USE ONLY) ONE (10:35)
[2019-03-03] MEDS ORDERED: METHADONE HCL 10 MG TABLET (FOR DETOX USE ONLY) ONE (10:35)
[2019-03-03] MEDS: HYDROCORTISONE 0.5% TOPICAL CREAM 30 GM TUBE TP SCH (10:37)
[2019-03-03 13:09] VITALS: BP 137/91; PULSE 64; TEMP 97.4
[2019-03-04] MEDS ORDERED: chlordiazePOXIDE HCL 10 MG CAPSULE PO SCH (05:00)
[2019-03-04] MEDS ORDERED: METHADONE HCL 10 MG TABLET (FOR DETOX USE ONLY) PO ONE (10:00)
[2019-03-05] MEDS ORDERED: chlordiazePOXIDE HCL 10 MG CAPSULE PO ONE (05:00)
[2019-03-05] MEDS ORDERED: METHADONE HCL 5 MG TABLET (FOR DETOX USE ONLY) PO ONE (06:00)
== END 2019-03-03 03:57 | disposition left against medical advice (07) | DRG 894 ==
LOC: YASAS 08:42 → Y3N 10:40
PROVIDERS: ADMIT Allergy & Immunology; ATTEND Allergy & Immunology
PROC: HZ2ZZZZ Detoxification Services for Substance Abuse Treatment (ICD-10-PCS; principal; 2019-02-28)
DX: F11.23 Opioid dependence with withdrawal (principal); F14.20 Cocaine dependence, uncomplicated; F10.230 Alcohol dependence with withdrawal, uncomplicated; F17.210 Nicotine dependence, cigarettes, uncomplicated; F41.9 Anxiety disorder, unspecified; F32.9 Major depressive disorder, single episode, unspecified; I10 Essential (primary) hypertension; K21.9 Gastro-esophageal reflux disease without esophagitis
CPT/HCPCS: 36415; 71046-TC-FY; 80053; 85027; 86593

== ENCOUNTER 2019-10-11 09:14 | Emergency (ER) | payer BC, OTHER ==
[2019-10-11 09:22] VITALS: BP 114/78; PULSE 70; TEMP 97.9; BMI 23.3
[2019-10-11] MEDS ORDERED: AZITHROMYCIN 500 MG TABLET PO ONE (09:54)
--- NOTE | 2019-10-11 10:06 | PDOC ---
History of Present Illness - General Chief Complaint: Revisit, Lab Variance Stated Complaint: STD Time Seen by Provider: 10/11/19 09:39 History Source: Patient Exam Limitations: Clinical Condition - History of Present Illness Initial Comments: 10/11/19 10:00 Patient with no significant past medical history present with complaint of penile discharge which he feels is STD for 3 days. Patient reported history of chlamydia and gonorrhea in the past which he had burning sensation in the penis but does not have any burning sensation this time. Denies urinary frequency, dysuria, burning with urination, urinary urgency, testicular pain or swelling. Denies any other symptoms Is this a multiple visit Asthma Patient?: No Past History - Medical History Allergies/Adverse Reactions: Allergies Allergy/AdvReac Type Severity Reaction Status Date / Time No Known Allergies Allergy Verified 10/11/19 09:19 Home Medications: Ambulatory Orders Methadone [Dolophine -] 70 mg PO DAILY 10/11/19 Anemia: No Asthma: No Cancer: No Cardiac Disorders: No CVA: No COPD: No CHF: No Dementia: No Diabetes: No GI Disorders: Yes (GERD) Disorders: No HTN: Yes (no meds) Hypercholesterolemia: No Kidney Stones: No Liver Disease: No Seizures: No Thyroid Disease: No - Surgical History Abdominal Surgery: No Appendectomy: No Cardiac Surgery: No Cholecystectomy: No Lung Surgery: No Neurologic Surgery: No Orthopedic Surgery: No - Reproductive History Testicular Surgery: No - Psycho-Social/Smoking History Smoking History: Current every day smoker Have you smoked in the past 12 months: Yes Number of Cigarettes Smoked Daily: 10 Information on smoking cessation initiated: Yes 'Breaking Loose' booklet given: 02/28/19 - Substance Abuse Hx (Audit-C & DAST Scrn) How often the patient has a drink containing alcohol: Monthly or less How often the patient has six or more drinks on one occasion: Never Score: In Men: 4 or > Positive; In Women: 3 or > Positive: 1 Screen Result (Pos requires Nsg. Audit-10AR): Negative In the last yr the pt used illegal drug/Rx for NonMed reason: Yes Score: Yes response is considered Positive: 1 Screen Result (Positive result requires Nsg. DAST-10): Positive Review of Systems - Review of Systems Able to Perform ROS?: Yes Is the patient limited Romanian proficient: No Constitutional: No: Chills, Fever, Malaise HEENTM: No: Symptoms Reported, See HPI, Eye Pain, Blurred Vision, Tearing, Recent change in vision, Double Vision, Cataracts, Ear Pain, Ocular Prothesis, Ear Discharge, Nose Pain, Nose Congestion, Tinnitus, Nose Bleeding, Hearing Loss, Throat Pain, Throat Swelling, Mouth Pain, Dental Problems, Difficulty Swallowing, Mouth Swelling, Other Respiratory: No: Symptoms reported, See HPI, Cough, Orthopnea, Shortness of Breath, SOB with Exertion, SOB at Rest, Stridor, Wheezing, Productive cough, Hemoptysis, Other Cardiac (ROS): No: Symptoms Reported, See HPI, Chest Pain, Edema, Irregular Heart Rate, Lightheadedness, Palpitations, Syncope, Chest Tightness, Other ABD/GI: No: Symptoms Reported, Nausea, Vomiting : Yes: Symptoms Reported, See HPI, Discharge. No: Burning, Dysuria, Frequency, Flank Pain, Hematuria, Incontinence, Pain, Urgency, Testicular Mass, Testicular Swelling, Testicular Pain Musculoskeletal: No: Symptoms Reported, Back Pain All Other Systems: Reviewed and Negative *Physical Exam - Vital Signs Last Vital Signs Temp Pulse Resp BP Pulse Ox 97.9 F 70 16 114/78 99 10/11/19 09:20 10/11/19 09:20 10/11/19 09:20 10/11/19 09:20 10/11/19 09:20 - Physical Exam General Appearance: Yes: Nourished, Appropriately Dressed. No: Apparent Distress HEENT: positive: Normal ENT Inspection Neck: positive: Supple Respiratory/Chest: positive: Lungs Clear, Normal Breath Sounds. negative: Chest Tender, Respiratory Distress, Accessory Muscle Use Cardiovascular: positive: Regular Rhythm, Regular Rate Male Genitalia: positive: normal genitalia, discharge (Small amount of thick yellow discharge from meatus of penis). negative: testicular tenderness, testicular mass, epididymus tender, inguinal hernia, hernia, CVAT, hematuria Musculoskeletal: positive: Normal Inspection Extremity: positive: Normal Inspection, Normal Range of Motion Integumentary: positive: Normal Color Neurologic: positive: Fully Oriented, Alert, Normal Mood/Affect, Normal Response, Motor Strength 5/5 Medical Decision Making - Medical Decision Making 10/11/19 10:01 Patient with no significant past medical history present with complaint of penile discharge which he feels is STD for 3 days. Patient reported history of chlamydia and gonorrhea in the past which he had burning sensation in the penis but does not have any burning sensation this time. Denies urinary frequency, dysuria, burning with urination, urinary urgency, testicular pain or swelling. Denies any other symptoms Exam significant for small amount of yellow discharge in meatus of penis. No testicular tenderness or scrotal swelling. Otherwise normal exam. Swab of penile discharge obtained for gonorrhea and chlamydia test. Patient declined other STD testing as he has PCP appointment a few days for routine annual visit and he will be tested for everything. We will treat empirically on ceftriaxone 250 mg IM and azithromycin 1 g p.o. Patient educated on no unprotected sex for at least 4 weeks and partner also needs to be treated. Patient voiced understanding of treatment plan patient will follow-up with PCP Discharge - Discharge Information Problems reviewed: Yes Clinical Impression/Diagnosis: Sexually transmitted disease (STD), Penile discharge Condition: Stable Disposition: HOME - Admission No - Follow up/Referral Referrals: Julián Vargas MD [Staff Physician] - - Patient Discharge Instructions Patient Printed Discharge Instructions: How to Detect and Treat STDs, Facts About Sexually Transmitted Infections Additional Instructions: No unprotected sex for at least 4 weeks. You will be contacted with lab results in a few days. Follow-up with your primary care as scheduled - Post Discharge Activity
[2019-10-11] MEDS ORDERED: cefTRIAXone SODIUM 1 GM VIAL ONE (10:16)
[2019-10-11] MEDS ORDERED: AZITHROMYCIN 250 MG TABLET ONE (10:16)
[2019-10-11] MEDS ORDERED: LIDOCAINE HCL 1%, 10 MG/ML (20ML VIAL) ONE (10:21)
== END 2019-10-11 10:40 | disposition home or self-care (01) ==
LOC: JER 09:14
DX: A64 Unspecified sexually transmitted disease (principal); R36.9 Urethral discharge, unspecified
CPT/HCPCS: 36415; 87491; 87591; 87661; 99284-25

== ENCOUNTER 2019-11-26 11:11 | Inpatient (IN) | payer OTHER ==
--- OUTSIDE RECORDS SUMMARY | 2019-11-26 11:17 | XMS ---
:1960 Author Organization [facility] Care Team Providers Name Role Phone HHHVCC, MMVH9 Unavailable Unavailable HHCCC, CNR9 Unavailable Unavailable ED STAFF PHYSICIAN, STAFF Unavailable Unavailable LESLYE FELDER Unavailable Unavailable Ruben Morgan Unavailable Unavailable Re-disclosure Warning The records that you are about to access may contain information from federally- assisted alcohol or drug abuse programs. If such information is present, then the following federally mandated warning applies: This information has been disclosed to you from records protected by federal confidentiality rules (42 CFR part 2). The federal rules prohibit you from making any further disclosure of this information unless further disclosure is expressly permitted by the written consent of the person to whom it pertains or as otherwise permitted by 42 CFR part 2. A general authorization for the release of medical or other information is NOT sufficient for this purpose. The Federal rules restrict any use of the information to criminally investigate or prosecute any alcohol or drug abuse patient.The records that you are about to access may contain highly sensitive health information, the redisclosure of which is protected by Article 27-F of the [facility] Public Health law. If you continue you may haveaccess to information: Regarding HIV / AIDS; Provided by facilities licensed or operated by the [facility] Office of Mental Health; or Provided by the [facility] Office for People With Developmental Disabilities. If such information is present, then the following [facility] mandated warning applies: This information has been disclosed to you from confidential records which are protected by state law. State law prohibits you from making any further disclosure of this information without the specific written consent of the person to whom it pertains, or as otherwise permitted by law. Any unauthorized further disclosure in violation of state law may result in a fine or long-term sentence or both. A general authorization for the release of medical or other information is NOT sufficient authorization for further disclosure. Encounters Encounter Providers Location Date Indications Data Source(s ) Outpatient Attender: [id number] [facility] 10/10/2019 [facility] 05:29:18 PM [facility] EDT [facility]) Patient admitted. Outpatient Attender: [id number] [facility] 05/01/2019 01:55:31 PM [facility] ([facility]) Patient admitted. Inpatient Att[facility]01[facility]2019 12:42:00 [facility] AKINOAttender: STAFF ED STAFF PM EST - 04/02/[address] [place] [address] PHYSICIANAdmitter: LESLYE 10:35:00 AM EST PANTERA WESTOReferrer: LESLYE GAVIN Patient discharged. Emergency H 10/29/2018 11:48:00 AM EDT - [address] [place] [address] 04:30:00 PM EDT Patient discharged. [facility] 11/24/2017 02:31:00 PM [facility] EDT - 12/11/2017 11:59:00 Hospital PM EDT R [facility]: [facility] 10/12/2017 12:00:00 AM [facility] EDT - 11/11/2017 11:59:00 Hospital PM EDT R [facility]: [facility] 08/12/2017 12:40:00 PM [facility] EDT - 09/10/2017 11:59:00 Hospital PM EDT R Attender: Ruben [facility] 04/14/2017 12:00:00 AM [facility] EST - 05/11/2017 11:59:00 Hospital PM EST Medications Medication Brand Start Product Dose Route Administrative Pharmacy [facility] Indications Reaction Description Data Name Date Form Instructions Instructions Source(s) Sucralfate sucral 10 mL complet CarafATE [facility] 100 MG/ML fate ed Vianca Oral (Caraf Medical Suspension ATE) 1 Center [Carafate] gram/1 sucralfate 0 mL (CarafATE) Suspen 1 gram/10 cherry, mL Ordere Suspension, d By: Ordered By: Austin Scott, , MDDirection MDDire s: 10 mL ctions oral four : 10 times daily mL oral four times daily Insurance Providers Payer name Policy type Policy ID Covered Covered constitution party's Policy P sharon / Coverage constitution party ID relationship to [place] [facility] ormation type [place] MEDICAID [id number] SP [id number] BC PPO [id number] [place] [id number] EMPIRE BLUE O [id number] [facility] O [id number] HEALTHCARE ACUTE O [facility] O [id number] Medicaid Medicaid [id number] Problems, Conditions, and Diagnoses Code Display Name Description Problem Type Effective Data Dates Source(s) K21.9 Gastro-esophageal GASTRO-ESOPHAGEAL Diagnosis 04/02/2019 [facility] reflux disease REFLUX DISEASE 10:35:00 AM Medic al without WITHOUT EST Center esophagitis ESOPHAGITIS T40.5X1A Poisoning by POISONING BY Diagnosis 04/02/2019 [facility] cocaine, COCAINE, 10:35:00 AM Medical accidental ACCIDENTAL EST Center (unintentional), (UNINTENTIONAL), initial encounter INIT I10 Essential ESSENTIAL Diagnosis 04/02/2019 [facility] (primary) (PRIMARY) 10:35:00 AM Medical hypertension HYPERTENSION EST Center I16.0 Hypertensive HYPERTENSIVE Diagnosis 04/02/2019 [facility] urgency URGENCY 10:35:00 AM Medical EST Center E87.6 Hypokalemia HYPOKALEMIA Diagnosis 04/02/2019 [facility] 10:35:00 AM Medical EST Center E87.1 Hypo-osmolality HYPO-OSMOLALITY Diagnosis 04/02/2019 Moni dileep Coley and hyponatremia AND HYPONATREMIA 10:35:00 AM edical EST Center J96.00 Acute respiratory ACUTE RESPIRATORY Diagnosis 04/02/2019 [facility] failure, FAILURE, UNSP W 10:35:00 AM Medical unspecified HYPOXIA OR EST Center whether with HYPERCAPNIA hypoxia or hypercapnia T40.2X1A Poisoning by other POISONING BY OTH Diagnosis 04/02/2019 [facility] opioids, OPIOIDS, 10:35:00 AM Medical accidental ACCIDENTAL EST Center (unintentional), (UNINTENTIONAL), initial encounter INIT R56.9 Unspecified UNSPECIFIED Diagnosis 04/01/2019 [facility] convulsions CONVULSIONS 12:42:00 PM Medical EST Center K20.9 Esophagitis, ESOPHAGITIS, Diagnosis 10/29/2018 [facility] unspecified UNSPECIFIED 11:48:00 AM Medical EDT Center R13.12 Dysphagia, DYSPHAGIA, Diagnosis 10/29/2018 [facility] oropharyngeal OROPHARYNGEAL 11:48:00 AM Medical phase PHASE EDT Center 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 and EDT Hosp ital behavior behavior Results ID Date Data Source Liver 04/02/2019 06:00:[address] [facility] Profile.[id number] Name Value Range Interpretation Description Data Sup porting Code Source(s) Document(s ) Aspartate 17-59 <content [facility] aminotransferase styleCode="Bold"> Kenny hs [Enzymatic Aspartate Medical activity/volume] Aminotransferase Center in Serum or Plasma (AST) </content>23 IU/L<content styleCode="Italic s"> (17-59 IU/L)</content> Albumin 3.5-5.0 Below low <content [facility] [Mass/volume] in normal styleCode="Bold"> [facility] hs Serum or Plasma Albumin Medical </content>3.1 Center G/DL L<content styleCode="Italic s"> (3.5-5.0 G/DL)</content> Bilirubin.total 0.2-1.3 <content [facility] [Mass/volume] in styleCode="Bold"> [facility] hs Serum or Plasma Bilirubin Total Medical </content>0.3 Center MG/DL<content styleCode="Italic s"> (0.2-1.3 MG/DL)</content> Alkaline 38-126 <content [facility] phosphatase styleCode="Bold"> [facility] [Enzymatic Alkaline Medical activity/volume] Phosphatase (ALP) Cente r in Serum or Plasma </content>50 IU/L<content styleCode="Italic s"> (38-126 IU/L)</content> Alanine 7-50 <content [facility] aminotransferase styleCode="Bold"> [facility] hs [Enzymatic Alanine Medical activity/volume] Aminotransferase Center in Serum or Plasma (ALT) </content>13 IU/L<content styleCode="Italic s"> (7-50 IU/L)</content> ID Date Data Source Hormones.[id number] 04/02/2019 06:00:00 AM EST [facility] Name Value Range Interpretation Description Data Sup porting Code Source(s) Document(s ) Thyrotropin 0.465-4. <content [facility] [Units/volume] 68 styleCode="Dasia [facility] in Serum or d">Thyroid Medical Plasma by [facility] Center Detection Hormone limit <= 0.05 </content>1.69 mIU/L MIU/L<content styleCode="Bharti lics"> (0.465-4.68 MIU/L)</conten t> ID Date Data Source HematologyRou.[id number] 04/02/2019 06:00:00 AM EST Nathan nt [facility] 0500 Name Value Range Interpretation Description Data Sup porting Code Source(s) Document(s ) Hemoglobin 13.5-17. Below low normal <content [facility] [Mass/volume] in 5 styleCode="Bold [facility] Blood ">Hemoglobin Medical </content>8.9 Center G/DL L<content styleCode="Ital ics"> (13.5-17.5 G/DL)</content> Erythrocytes 4.4-5.9 Below low normal <content [facility] [#/volume] in styleCode="Bold [facility] Blood by ">Red Blood Medical Automated count Cell Count Center </content>2.78 MCUMM L<content styleCode="Ital ics"> (4.4-5.9 MCUMM)</content > Leukocytes 4.4-11.0 <content [facility] [#/volume] in styleCode="Bold [facility] Blood by ">White Blood Medical Automated count Cell Count Center </content>6.86 KCUMM<content styleCode="Ital ics"> (4.4-11.0 KCUMM)</content > Erythrocyte mean 26.0-34. <content [facility] corpuscular 0 styleCode="Bold [facility] hemoglobin ">Mean Medical [Entitic mass] Corposcular Center by Automated Hemoglobin count </content>32.0 PG<content styleCode="Ital ics"> (26.0-34.0 PG)</content> Erythrocyte mean 80.0-100 <content [facility] corpuscular .0 styleCode="Bold [facility] volume [Entitic ">Mean Medical volume] by Corpuscular Center Automated count Volume </content>96.4 FL<content styleCode="Ital ics"> (80.0-100.0 FL)</content> Hematocrit 41.0-53. Below low normal <content [facility] [Volume 0 styleCode="Bold [facility] Fraction] of ">Hematocrit Medical Blood by </content>26.8 Center Automated count % L<content styleCode="Ital ics"> (41.0-53.0 %)</content> Erythrocyte mean 32.0-37. <content [facility] corpuscular 0 styleCode="Bold [facility] hemoglobin ">Mean Corpus. Medical concentration Hgb Center [Mass/volume] by Concentration Automated count (MCHC) </content>33.2 G/DL<content styleCode="Ital ics"> (32.0-37.0 G/DL)</content> Erythrocyte 11.5-14. <content [facility] distribution 5 styleCode="Bold [facility] width [Ratio] by ">Red Cell Medical Automated count Distribution Center Width </content>12.8 %<content styleCode="Ital ics"> (11.5-14.5 %)</content> Neutrophils 36-66 <content [facility] [#/volume] in styleCode="Bold [facility] Blood by ">Neutrophil Medical Automated count </content>52.7 Center %<content styleCode="Ital ics"> (36-66 %)</content> Platelets 130-400 <content [facility] [#/volume] in styleCode="Bold [facility] Blood by ">Platelet Medical Automated count Count Center </content>186 KCUMM<content styleCode="Ital ics"> (130-400 KCUMM)</content > UNK 1.6-7.3 <content Saint styleCode="Bold [facility] ">Neutrophil Medical Count Center </content>3.61 KCUMM<content styleCode="Ital ics"> (1.6-7.3 KCUMM)</content > Platelet mean 8.0-11.0 Above high <content [facility] volume [Entitic normal styleCode="Bold [facility] volume] in Blood ">Mean Platelet Medical by Automated Volume Center count </content>11.1 FL H<content styleCode="Ital ics"> (8.0-11.0 FL)</content> UNK 1.0-4.8 <content Saint styleCode="Bold [facility] ">Lymphocyte Medical Count Center </content>2.41 KCUMM<content styleCode="Ital ics"> (1.0-4.8 KCUMM)</content > Monocytes 3.0-10.0 <content [facility] [#/volume] in styleCode="Bold [facility] Blood by ">Monocyte Medical Automated count </content>9.9 Center %<content styleCode="Ital ics"> (3.0-10.0 %)</content> Lymphocytes 24.0-44. <content [facility] [#/volume] in 0 styleCode="Bold [facility] Blood by ">Lymphocyte Medical Automated count </content>35.1 Center %<content styleCode="Ital ics"> (24.0-44.0 %)</content> UNK 0.2-0.9 <content [facility] styleCode="Bold [facility] ">Monocyte Medical Count Center </content>0.68 KCUMM<content styleCode="Ital ics"> (0.2-0.9 KCUMM)</content > Eosinophils 0-5.0 <content [facility] [#/volume] in styleCode="Bold [facility] Blood by ">Eosinophil Medical Automated count </content>1.9 Center %<content styleCode="Ital ics"> (0-5.0 %)</content> UNK 0.0-0.3 <content [facility] styleCode="Bold [facility] ">Basophil Medical Count Center </content>0.01 KCUMM<content styleCode="Ital ics"> (0.0-0.3 KCUMM)</content > UNK 0 <content Saint styleCode="Bold [facility] ">Nucleated Red Medical Blood Cell Center </content>0.0 /100<content styleCode="Ital ics"> (0 /100)</content> UNK 0.0-0.6 <content [facility] styleCode="Bold [facility] ">Eosinophil Medical Count Center </content>0.13 KCUMM<content styleCode="Ital ics"> (0.0-0.6 KCUMM)</content > Basophils 0.0-1.0 <content [facility] [#/volume] in styleCode="Bold [facility] Blood by ">Basophil Medical Automated count </content>0.1 Center %<content styleCode="Ital ics"> (0.0-1.0 %)</content> UNK < 1 <content [facility] styleCode="Bold [facility] ">Immature Medical Granulocyte Center Ratio </content>0.3 %<content styleCode="Ital ics"> (< 1 %)</content> UNK 0-0.1 <content [facility] styleCode="Bold [facility] ">Immature Medical Granulocyte Center Count </content>0.02 KCUMM<content styleCode="Ital ics"> (0-0.1 KCUMM)</content > UNK 0.0 <content Saint styleCode="Bold [facility] ">Nucleated Red Medical Blood Cell Center Count </content>0.00 KCUMM<content styleCode="Ital ics"> (0.0 KCUMM)</content > ID Date Data Source GFR(Creatinine).[id number] 04/02/2019 06:00:00 AM EST [facility] 0-0500 Name Value Range Interpretation Code Description Data Chiqui rce(s) Supporting Document(s ) UNK > 60 <content [facility] styleCode="Bold"> Medical Cent er EGFR </content>80 GFR<content styleCode="Italic s"> (> 60 GFR)</content> ID Date Data Source Coagulation 04/02/2019 06:00:00 AM [facility] Rout.[id number] EST Name Value Range Interpretation Description Data Sup porting Code Source(s) Document(s ) INR in 0.80-1.2 <content [facility] Platelet poor 0 styleCode="Bold" [facility] plasma by >INR Medical Coagulation </content>1.13 Center assay #<content styleCode="Itali cs"> (0.80-1.20 #)</content> UNK 9.0-13.0 <content [facility] styleCode="Bold" [facility] >Protime Medical </content>12.5 Center SEC<content styleCode="Itali cs"> (9.0-13.0 SEC)</content> aPTT in 25.1-36. <content [facility] Platelet poor 5 styleCode="Bold" [facility] plasma by >Partial Medical Coagulation Thromboplastin Center assay Time </content>25.4 SEC<content styleCode="Itali cs"> (25.1-36.5 SEC)</content> ID Date Data Source CHMROUTINECCDA.[id number] 04/02/2019 06:00:00 AM EST Nathan nt [facility] -0500 Name Value Range Interpretation Description Data Sup porting Code Source(s) Document(s ) UNK 4.2-5.8 <content [facility] styleCode="Dasia Key[facility] d">Hemoglobin Medical A1C Center </content>5.2 %<content styleCode="Bharti lics"> (4.2-5.8 %)</content> Magnesium 1.6-2.3 <content [facility] [Mass/volume] styleCode="Dasia Coley in Serum or d">Magnesium Medical Plasma </content>1.7 Center MG/DL<content styleCode="Bharti lics"> (1.6-2.3 MG/DL)</conten t> UNK 2.3-3.5 <content [facility] styleCode="Dasia Keyess d">Globulin Medical </content>2.8 Center G/DL<content styleCode="Bharti lics"> (2.3-3.5 G/DL)</content > UNK >= 1.0 <content [facility] styleCode="Dasia Keyess d">AG Ratio Medical </content>1.1 Center <content styleCode="Bharti lics"> (>= 1.0 )</content> Phosphate 2.5-4.5 <content [facility] [Mass/volume] styleCode="Dasia [facility] in Serum or d">Phosphorus Medical Plasma </content>4.4 Center MG/DL<content styleCode="Bharti lics"> (2.5-4.5 MG/DL)</conten t> Protein 6.3-8.2 Below low normal <content [facility] [Mass/volume] styleCode="Dasia [facility] in Serum or d">Total Medical Plasma Protein Center </content>5.9 G/DL L<content styleCode="Bharti lics"> (6.3-8.2 G/DL)</content > ID Date Data Source CardiacMarkers.[id number] 04/02/2019 06:00:00 AM ASMITA [facility] -0500 Name Value Range Interpretation Description Data Sup porting Code Source(s) Document(s ) Creatine 55-170 Above high normal <content [facility] kinase styleCode="Bold [facility] [Enzymatic ">CK Medical activity/vol </content>299 Center ume] in IU/L H<content Serum or styleCode="Ital Plasma ics"> (55-170 IU/L)</content> Troponin < 0.034 <content [facility] I.cardiac styleCode="Bold [facility] [Mass/volume ">Troponin I Medical ] in Serum </content>0.030 Center or Plasma NG/ML<content styleCode="Ital ics"> (< 0.034 NG/ML)</content > ID Date Data Source BMP.[id number] 04/02/2019 06:00:00 AM ASMITA [facility] Name Value Range Interpretation Description Data Sup porting Code Source(s) Document(s ) Sodium 137-145 <content [facility] [Moles/volume] in styleCode="Bold"> Jesus carlos alberto Serum or Plasma Sodium Medical </content>138 Center MEQ/L<content styleCode="Italic s"> (137-145 MEQ/L)</content> Potassium 3.5-5.3 <content [facility] [Moles/volume] in styleCode="Bold"> Jesus phs Serum or Plasma Potassium Medical </content>3.8 Center MEQ/L<content styleCode="Italic s"> (3.5-5.3 MEQ/L)</content> Carbon dioxide, 22-30 <content [facility] total styleCode="Bold"> [facility] [Moles/volume] in Carbon Dioxide Medical Serum or Plasma </content>25 Center MEQ/L<content styleCode="Italic s"> (22-30 MEQ/L)</content> Chloride 98-107 Above high <content [facility] [Moles/volume] in normal styleCode="Bold"> Jesus phs Serum or Plasma Chloride Medical </content>108 Center MEQ/L H<content styleCode="Italic s"> (98-107 MEQ/L)</content> Creatinine 0.5-1.3 <content [facility] [Mass/volume] in styleCode="Bold"> Kenny hs Serum or Plasma Creatinine Medical </content>1.2 Center MG/DL<content styleCode="Italic s"> (0.5-1.3 MG/DL)</content> UNK 9-20 <content [facility] styleCode="Bold"> [facility] BUN </content>13 Medical MG/DL<content Center styleCode="Italic s"> (9-20 MG/DL)</content> Aspartate 17-59 <content [facility] aminotransferase styleCode="Bold"> Kenny hs [Enzymatic Aspartate Medical activity/volume] Aminotransferase Center in Serum or Plasma (AST) </content>23 IU/L<content styleCode="Italic s"> (17-59 IU/L)</content> Alanine 7-50 <content [facility] aminotransferase styleCode="Bold"> [facility] hs [Enzymatic Alanine Medical activity/volume] Aminotransferase Center in Serum or Plasma (ALT) </content>13 IU/L<content styleCode="Italic s"> (7-50 IU/L)</content> Glucose 74-106 <content [facility] [Mass/volume] in styleCode="Bold"> [facility] hs Serum or Plasma Glucose Medical </content>83 Center MG/DL<content styleCode="Italic s"> (74-106 MG/DL)</content> Calcium 8.4-10. <content [facility] [Mass/volume] in 2 styleCode="Bold"> Eknny hs Serum or Plasma Calcium Medical </content>8.5 Center MG/DL<content styleCode="Italic s"> (8.4-10.2 MG/DL)</content> UNK > 60 <content [facility] styleCode="Bold"> [facility] EGFR </content>80 Medical GFR<content Center styleCode="Italic s"> (> 60 GFR)</content> Alkaline 38-126 <content [facility] phosphatase styleCode="Bold"> [facility] [Enzymatic Alkaline Medical activity/volume] Phosphatase (ALP) Cente r in Serum or Plasma </content>50 IU/L<content styleCode="Italic s"> (38-126 IU/L)</content> Bilirubin.total 0.2-1.3 <content [facility] [Mass/volume] in styleCode="Bold"> Kenny hs Serum or Plasma Bilirubin Total Medical </content>0.3 Center MG/DL<content styleCode="Italic s"> (0.2-1.3 MG/DL)</content> Albumin 3.5-5.0 Below low <content [facility] [Mass/volume] in normal styleCode="Bold"> Kenny hs Serum or Plasma Albumin Medical </content>3.1 Center G/DL L<content styleCode="Italic s"> (3.5-5.0 G/DL)</content> ID Date Data Source CHMROUTINECCDA.[id number] 04/01/2019 05:15:00 PM ASMITA [facility] -0500 Name Value Range Interpretation Code Description Data Chiqui rce(s) Supporting Document(s ) UNK 0.7-2.0 <content [facility] styleCode="Bold" Medical Cente r >Lactic Acid 4hr </content>1.5 MMOLL<content styleCode="Itali cs"> (0.7-2.0 MMOLL)</content> ID Date Data Source GFR(Creatinine).[id number] 04/01/2019 02:00:00 PM [facility] 0-0500 Name Value Range Interpretation Code Description Data Chiqui rce(s) Supporting Document(s ) UNK > 60 <content [facility] styleCode="Bold"> Medical Cent er EGFR </content>128 GFR<content styleCode="Italic s"> (> 60 GFR)</content> ID Date Data Source [facility].[id number] 04/01/2019 02:00:00 PM EST [facility] Name Value Range Interpretation Description Data Sup porting Code Source(s) Document(s ) Sodium 137-145 Below low normal <content [facility] [Moles/volume] styleCode="Dasia Vianca in Serum or d">Sodium Medical Plasma </content>136 Center MEQ/L L<content styleCode="Bharti lics"> (137-145 MEQ/L)</conten t> UNK 9-20 <content Saint styleCode="Dasia [facility] d">BUN Medical </content>14 Center MG/DL<content styleCode="Bharti lics"> (9-20 MG/DL)</conten t> Carbon 22-30 <content [facility] dioxide, total styleCode="Dasia Vianca [Moles/volume] d">Carbon Medical in Serum or Dioxide Center Plasma </content>23 MEQ/L<content styleCode="Bharti lics"> (22-30 MEQ/L)</conten t> Potassium 3.5-5.3 Below low normal <content [facility] [Moles/volume] styleCode="Dasia Vianca in Serum or d">Potassium Medical Plasma </content>3.4 Center MEQ/L L<content styleCode="Bharti lics"> (3.5-5.3 MEQ/L)</conten t> Chloride 98-107 <content [facility] [Moles/volume] styleCode="Dasia Vianca in Serum or d">Chloride Medical Plasma </content>105 Center MEQ/L<content styleCode="Bharti lics"> (98-107 MEQ/L)</conten t> Creatinine 0.5-1.3 <content [facility] [Mass/volume] styleCode="Dasia Vianca in Serum or d">Creatinine Medical Plasma </content>0.8 Center MG/DL<content styleCode="Bharti lics"> (0.5-1.3 MG/DL)</conten t> Calcium 8.4-10.2 <content [facility] [Mass/volume] styleCode="Dasia Coley in Serum or d">Calcium Medical Plasma </content>8.5 Center MG/DL<content styleCode="Bharti lics"> (8.4-10.2 MG/DL)</conten t> Glucose 74-106 Above high normal <content [facility] [Mass/volume] styleCode="Dasia Coley in Serum or d">Glucose Medical Plasma </content>259 Center MG/DL H<content styleCode="Bharti lics"> (74-106 MG/DL)</conten t> UNK > 60 <content styleCode="Dasia Coley d">EGFR Medical </content>128 Center GFR<content styleCode="Bharti lics"> (> 60 GFR)</content> ID Date Data Source Microbiology.[id number] 04/01/2019 01:59:00 PM EST [facility] 500 Name Value Range Interpretation Code Description Data Chiqui rce(s) Supporting Document(s ) UNK <item><content [facility] styleCode="Bold"> Medical Cent er Culture Status </content>
<t able><tbody><tr>< td>Specimen Number:</td><td>[id number]</td></tr ><tr><td>Sample Collection Date/Time: </td><td> 0 1:59 PM</td></tr><tr>< td>Specimen Source:</td><td>B LOOD</td></tr><tr ><td>Culture Status:</td><td>P reliminary </td></tr><tr><td >Blood Culture:</td><td> Collection Plate Date: 04/01/2019 14:11 </td></tr><tr><td >Culture Report:</td><td>C ulture in progress </td></tr></tbody ></table></item> UNK <item><content [facility] styleCode="Bold"> Medical Cent er Culture Report </content>
<t able><tbody><tr>< td>Specimen Number:</td><td>[id number]</td></tr ><tr><td>Sample Collection Date/Time: </td><td> 0 1:59 PM</td></tr><tr>< td>Specimen Source:</td><td>B LOOD</td></tr><tr ><td>Culture Report:</td><td>C ulture in progress </td></tr><tr><td >Blood Culture:</td><td> Collection Plate Date: 04/01/2019 14:11 </td></tr><tr><td >Culture Status:</td><td>P reliminary </td></tr></tbody ></table></item> ID Date Data Source CHMRFABYDA.[id number] 04/01/2019 01:25:00 PM EST [facility] -0500 Name Value Range Interpretation Description Data Sup porting Code Source(s) Document(s ) Lactate 0.7-2.0 Above upper panic <content [place] s [Mass/volum limits styleCode="Bold Medical e] in Serum ">Lactic Acid Center or Plasma </content><cont ent styleCode="Bold ">9.8 MMOLL HH</content><co ntent styleCode="Ital ics"> (0.7-2.0 MMOLL)</content > ID Date Data Source Urinalysis.[id number] 04/01/2019 01:24:00 PM EST [facility] [facility] Name Value Range Interpretation Description Data Sup porting Code Source(s) Document(s ) Glucose NEGATIVE <content [facility] [Mass/volume] styleCode="Dasia Vianca in Urine by d">Urine Medical Test strip Glucose Center </content>250 MG/DL<content styleCode="Bharti lics"> (NEGATIVE MG/DL)</conten t> UNK CLEAR <content [facility] styleCode="Dasia Keyess d">Urine Medical Clarity Center </content>JANE R <content styleCode="Bharti lics"> (CLEAR )</content> UNK NEGATIVE <content Saint styleCode="Dasia Keyess d">Urine Medical Bilirubin Center </content>NEGA TIVE <content styleCode="Bharti lics"> (NEGATIVE )</content> Color of Urine YELLOW <content Saint styleCode="Dasia Keyess d">Color, Medical Urine Center </content>YELL OW <content styleCode="Bharti lics"> (YELLOW )</content> Hemoglobin NEGATIVE <content [facility] [Presence] in styleCode="Dasia Coley Urine by Test d">Urine Blood Medical strip </content>TRAC Center E <content styleCode="Bharti lics"> (NEGATIVE )</content> Ketones NEGATIVE <content [facility] [Mass/volume] styleCode="Dasia Coley in Urine by d">Urine Medical Test strip Ketone Center </content>NEGA TIVE MG/DL<content styleCode="Bharti lics"> (NEGATIVE MG/DL)</conten t> Specific 1.015-1.02 <content [facility] gravity of 5 styleCode="Dasia Coley Urine by Test d">Urine Medical strip Specific Center [place] </content>1.02 0 <content styleCode="Bharti lics"> (1.015-1.025 )</content> pH of Urine by 4.5-8.0 <content Saint Test strip styleCode="Dasia Vianca d">Urine pH Medical </content>7.0 Center <content styleCode="Bharti lics"> (4.5-8.0 )</content> Nitrite NEGATIVE <content [facility] [Presence] in styleCode="Dasia Coley Urine by Test d">Urine Medical strip Nitrite Center </content>NEGA TIVE <content styleCode="Bharti lics"> (NEGATIVE )</content> Protein NEGATIVE <content [facility] [Mass/volume] styleCode="Dasia Coley in Urine by d">Urine Medical Test strip Protein Center </content>30 MG/DL<content styleCode="Bharti lics"> (NEGATIVE MG/DL)</conten t> Leukocyte NEGATIVE <content Saint esterase styleCode="Dasia Keyess [Presence] in d">Urine Medical Urine by Test Leukocyte Center strip </content>NEGA TIVE <content styleCode="Bharti lics"> (NEGATIVE )</content> Urobilinogen 0.2-1.0 <content [facility] [Units/volume] styleCode="Dasia Keyess in Urine by d">Urine Medical Test strip Urobilinogen Center </content>0.2 MG/DL<content styleCode="Bharti lics"> (0.2-1.0 MG/DL)</conten t> UNK 0-3 <content Saint styleCode="Dasia Keyess d">Urine White Medical Blood Cell Center </content>0-3 HPF<content styleCode="Bharti lics"> (0-3 HPF)</content> UNK 0-3 <content Saint styleCode="Dasia Vianca d">Urine Red Medical Blood Cell Center </content>0-3 HPF<content styleCode="Bharti lics"> (0-3 HPF)</content> ID Date Data Source Microbiology.[id number] 04/01/2019 01:24:00 PM EST [facility] 500 Name Value Range Interpretation Code Description Data Chiqui rce(s) Supporting Document(s ) UNK <item><content [facility] styleCode="Bold"> Medical Cent er Culture Report </content>
<t able><tbody><tr>< td>Specimen Number:</td><td>[id number]</td></tr ><tr><td>Sample Collection Date/Time: </td><td> 0 1:24 PM</td></tr><tr>< td>Specimen Source:</td><td>U RINE BLADDER</td></tr> <tr><td>Culture Report:</td><td>C ulture in progress </td></tr><tr><td >Urine Culture:</td><td> Collection Plate Date: 04/01/2019 13:35 </td></tr><tr><td >Culture Status:</td><td>P reliminary </td></tr></tbody ></table></item> UNK <item><content [facility] styleCode="Bold"> Medical Cent er Culture Status </content>
<t able><tbody><tr>< td>Specimen Number:</td><td>[id number]</td></tr ><tr><td>Sample Collection Date/Time: </td><td> 0 1:24 PM</td></tr><tr>< td>Specimen Source:</td><td>U RINE BLADDER</td></tr> <tr><td>Urine Culture:</td><td> Collection Plate Date: 04/01/2019 13:35 </td></tr><tr><td >Culture Status:</td><td>P reliminary </td></tr><tr><td >Culture Report:</td><td>C ulture in progress </td></tr></tbody ></table></item> ID Date Data Source CHMROUTINECCDA.[id number] 04/01/2019 01:24:00 PM EST [facility] -0500 Name Value Range Interpretation Description Data Sup porting Code Source(s) Document(s ) Cannabinoids <content [facility] [Presence] in styleCode="[facility] Urine by Screen d">Cannabinoid Medical method >50 ng/mL s [place] </content>NEGA TIVE NG/ML (Reference Range: not available)<br/ > ID Date Data Source Liver 04/01/2019 01:15:00 PM [facility] Profile.[id number] Name Value Range Interpretation Description Data Sup porting Code Source(s) Document(s ) Bilirubin.total 0.2-1.3 <content [facility] [Mass/volume] in styleCode="Bold"> [facility] hs Serum or Plasma Bilirubin Total Medical </content>0.4 Center MG/DL<content styleCode="Italic s"> (0.2-1.3 MG/DL)</content> Alkaline 38-126 <content Saint phosphatase styleCode="Bold"> [facility] [Enzymatic Alkaline Medical activity/volume] Phosphatase (ALP) Cente r in Serum or Plasma </content>68 IU/L<content styleCode="Italic s"> (38-126 IU/L)</content> Aspartate 17-59 <content [facility] aminotransferase styleCode="Bold"> [facility] [Enzymatic Aspartate Medical activity/volume] Aminotransferase Center in Serum or Plasma (AST) </content>31 IU/L<content styleCode="Italic s"> (17-59 IU/L)</content> Alanine 7-50 <content [facility] aminotransferase styleCode="Bold"> [facility] [Enzymatic Alanine Medical activity/volume] Aminotransferase Center in Serum or Plasma (ALT) </content>22 IU/L<content styleCode="Italic s"> (7-50 IU/L)</content> Albumin 3.5-5.0 <content [facility] [Mass/volume] in styleCode="Bold"> [facility] hs Serum or Plasma Albumin Medical </content>4.5 Center G/DL<content styleCode="Italic s"> (3.5-5.0 G/DL)</content> UNK 0.0-0.3 <content Saint styleCode="Bold"> [facility] Bilirubin, Direct Medical </content>< 0.2 Center MG/DL<content styleCode="Italic s"> (0.0-0.3 MG/DL)</content> ID Date Data Source HematologyRou.[id number] 04/01/2019 01:15:00 PM EST [facility] 0500 Name Value Range Interpretation Description Data Sup porting Code Source(s) Document(s ) Hemoglobin <content [facility] [Mass/volume] in styleCode="Bold" [place] [facility] Blood >Hemoglobin Medical </content>Test Center not performed. G/DL (Reference Range: not available)
Hematocrit <content Saint [Volume styleCode="Bold" Vianca Fraction] of >Hematocrit Medical Blood by </content>Test Center Automated count not performed. % (Reference Range: not available)
Erythrocytes <content Saint [#/volume] in styleCode="Bold" Vianca Blood by >Red Blood Cell Medical Automated count Count Center </content>Test not performed. [facility] (Reference Range: not available)
Leukocytes <content Saint [#/volume] in styleCode="Bold" Vianca Blood by >White Blood Medical Automated count Cell Count Center </content>Test not performed. [facility] (Reference Range: not available)
Erythrocyte mean <content Saint corpuscular styleCode="Bold" Vianca hemoglobin >Mean Corpus. Medical concentration Hgb Center [Mass/volume] by Concentration Automated count (MCHC) </content>Test not performed. G/DL (Reference Range: not available)
Erythrocyte mean <content Saint corpuscular styleCode="Bold" Vianca hemoglobin >Mean Medical [Entitic mass] Corposcular Center by Automated Hemoglobin count </content>Test not performed. PG (Reference Range: not available)
Erythrocyte mean <content Saint corpuscular styleCode="Bold" Vianca volume [Entitic >Mean Medical volume] by Corpuscular Center Automated count Volume </content>Test not performed. [place] (Reference Range: not available)
Erythrocyte <content Saint distribution styleCode="Bold" Vianca width [Ratio] by >Red Cell Medical Automated count Distribution Center Width </content>Test not performed. % (Reference Range: not available)
Lymphocytes <content Saint [#/volume] in styleCode="Bold" Vianca Blood by >Lymphocyte Medical Automated count </content>Test Center not performed. % (Reference Range: not available)
Platelets <content Saint [#/volume] in styleCode="Bold" Vianca Blood by >Platelet Count Medical Automated count </content>Test Center not performed. [facility] (Reference Range: not available)
Platelet mean <content Saint volume [Entitic styleCode="Bold" Vianca volume] in Blood >Mean Platelet Medical by Automated Volume Center count </content>Test not performed. [place] (Reference Range: not available)
UNK <content Saint styleCode="Bold" Vianca >Neutrophil Medical Count Center </content>Test not performed. [facility] (Reference Range: not available)
Neutrophils <content Saint [#/volume] in styleCode="Bold" [place] Blood by >Neutrophil Medical Automated count </content>Test Center not performed. % (Reference Range: not available)
UNK <content Saint styleCode="Bold" Vianca >Lymphocyte Medical Count Center </content>Test not performed. [facility] (Reference Range: not available)
Monocytes <content Saint [#/volume] in styleCode="Bold" Vianca Blood by >Monocyte Medical Automated count </content>Test Center not performed. % (Reference Range: not available)
Eosinophils <content Saint [#/volume] in styleCode="Bold" Vianca Blood by >Eosinophil Medical Automated count </content>Test Center not performed. % (Reference Range: not available)
UNK <content Saint styleCode="Bold" Vianca >Monocyte Count Medical </content>Test Center not performed. [facility] (Reference Range: not available)
UNK <content Saint styleCode="Bold" Vianca >Basophil Count Medical </content>Test Center not performed. [facility] (Reference Range: not available)
UNK <content Saint styleCode="Bold" Vianca >Nucleated Red Medical Blood Cell Count Center </content>Test not performed. [facility] (Reference Range: not available)
Basophils <content Saint [#/volume] in styleCode="Bold" Vianca Blood by >Basophil Medical Automated count </content>Test Center not performed. % (Reference Range: not available)
UNK <content Saint styleCode="Bold" Vianca >Nucleated Red Medical Blood Cell Center </content>Test not performed. /100 (Reference Range: not available)
UNK <content Saint styleCode="Bold" Vianca >Eosinophil Medical Count Center </content>Test not performed. [facility] (Reference Range: not available)
UNK <content Saint styleCode="Bold" Vianca >Immature Medical Granulocyte Center Count </content>Test not performed. [facility] (Reference Range: not available)
UNK <content Saint styleCode="Bold" Vianca >Immature Medical Granulocyte Center Ratio </content>Test not performed. % (Reference Range: not available)
ID Date Data Source GFR(Creatinine).[id number] 04/01/2019 01:15:00 PM EST [facility] 0-0500 Name Value Range Interpretation Code Description Data Chiqui rce(s) Supporting Document(s ) UNK > 60 <content [facility] styleCode="Bold"> Medical Cent er EGFR </content>89 GFR<content styleCode="Italic s"> (> 60 GFR)</content> ID Date Data Source Coagulation 04/01/2019 01:15:00 PM [facility] ical Center Rout.[id number] EST Name Value Range Interpretation Description Data Sup porting Code Source(s) Document(s ) UNK 9.0-13.0 <content Saint styleCode="Bold" Vianca >Protime Medical </content>11.6 Center SEC<content styleCode="Itali cs"> (9.0-13.0 SEC)</content> aPTT in 25.1-36. Below low normal <content Saint Platelet poor 5 styleCode="Bold" Vianca plasma by >Partial Medical Coagulation Thromboplastin Center assay Time </content>19.9 SEC L<content styleCode="Itali cs"> (25.1-36.5 SEC)</content> INR in 0.80-1.2 <content Saint Platelet poor 0 styleCode="Bold" Vianca plasma by >INR Medical Coagulation </content>1.05 Center assay #<content styleCode="Itali cs"> (0.80-1.20 #)</content> ID Date Data Source CHMROUTINECCDA.[id number] 04/01/2019 01:15:00 PM EST [facility] -0500 Name Value Range Interpretation Description Data Sup porting Code Source(s) Document(s ) UNK 30-110 <content [facility] Vianca styleCode="Bold Medical ">Amylase Center </content>84 IU/L<content styleCode="Ital ics"> (30-110 IU/L)</content> Lipase 23-300 <content Saint [facility] [Enzymatic styleCode="Bold Medical activity/vo ">Lipase Center lume] in </content>186 Serum or IU/L<content Plasma styleCode="Ital ics"> (23-300 IU/L)</content> ID Date Data Source CardiacMarkers.[id number] 04/01/2019 01:15:00 PM [facility] -0500 Name Value Range Interpretation Description Data Sup porting Code Source(s) Document(s ) Creatine 55-170 <content Saint kinase styleCode="Bold Vianac [Enzymatic ">CK Medical activity/vol </content>140 Center ume] in IU/L<content Serum or styleCode="Ital Plasma ics"> (55-170 IU/L)</content> Troponin < 0.034 <content Saint I.cardiac styleCode="Bold Vianca [Mass/volume ">Troponin I Medical ] in Serum </content>< Center or Plasma 0.012 NG/ML<content styleCode="Ital ics"> (< 0.034 NG/ML)</content > ID Date Data Source BMP.[id number] 04/01/2019 01:15:00 PM EST [facility] Name Value Range Interpretation Description Data Sup porting Code Source(s) Document(s ) Sodium 137-145 <content Saint [Moles/volume] in styleCode="Bold"> [facility] Serum or Plasma Sodium Medical </content>140 Center MEQ/L<content styleCode="Italic s"> (137-145 MEQ/L)</content> Chloride 98-107 <content Saint [Moles/volume] in styleCode="Bold"> [facility] Serum or Plasma Chloride Medical </content>103 Center MEQ/L<content styleCode="Italic s"> (98-107 MEQ/L)</content> Carbon dioxide, 22-30 Below low <content Saint total normal styleCode="Bold"> Vianca [Moles/volume] in Carbon Dioxide Medical Serum or Plasma </content>16 Center MEQ/L L<content styleCode="Italic s"> (22-30 MEQ/L)</content> UNK 9-20 <content Saint styleCode="Bold"> Vianca BUN </content>14 Medical MG/DL<content Center styleCode="Italic s"> (9-20 MG/DL)</content> Potassium 3.5-5.3 <content Saint [Moles/volume] in styleCode="Bold"> [facility] Serum or Plasma Potassium Medical </content>3.7 Center MEQ/L<content styleCode="Italic s"> (3.5-5.3 MEQ/L)</content> Glucose 74-106 Above high <content Saint [Mass/volume] in normal styleCode="Bold"> [facility] hs Serum or Plasma Glucose Medical </content>247 Center MG/DL H<content styleCode="Italic s"> (74-106 MG/DL)</content> Creatinine 0.5-1.3 <content Saint [Mass/volume] in styleCode="Bold"> [facility] hs Serum or Plasma Creatinine Medical </content>1.1 Center MG/DL<content styleCode="Italic s"> (0.5-1.3 MG/DL)</content> Calcium 8.4-10. <content Saint [Mass/volume] in 2 styleCode="Bold"> [facility] hs Serum or Plasma Calcium Medical </content>9.3 Center MG/DL<content styleCode="Italic s"> (8.4-10.2 MG/DL)</content> Aspartate 17-59 <content Saint aminotransferase styleCode="Bold"> [facility] [Enzymatic Aspartate Medical activity/volume] Aminotransferase Center in Serum or Plasma (AST) </content>31 IU/L<content styleCode="Italic s"> (17-59 IU/L)</content> UNK > 60 <content Saint styleCode="Bold"> [facility]ca EGFR </content>89 Medical GFR<content Center styleCode="Italic s"> (> 60 GFR)</content> Bilirubin.total 0.2-1.3 <content Saint [Mass/volume] in styleCode="Bold"> [facility] hs Serum or Plasma Bilirubin Total Medical </content>0.4 Center MG/DL<content styleCode="Italic s"> (0.2-1.3 MG/DL)</content> Alkaline 38-126 <content Saint phosphatase styleCode="Bold"> [facility] [Enzymatic Alkaline Medical activity/volume] Phosphatase (ALP) Cente r in Serum or Plasma </content>68 IU/L<content styleCode="Italic s"> (38-126 IU/L)</content> Albumin 3.5-5.0 <content Saint [Mass/volume] in styleCode="Bold"> [facility] hs Serum or Plasma Albumin Medical </content>4.5 Center G/DL<content styleCode="Italic s"> (3.5-5.0 G/DL)</content> Alanine 7-50 <content Saint aminotransferase styleCode="Bold"> [facility] [Enzymatic Alanine Medical activity/volume] Aminotransferase Center in Serum or Plasma (ALT) </content>22 IU/L<content styleCode="Italic s"> (7-50 IU/L)</content> ID Date Data Source Microbiology.[id number] 04/01/2019 12:50:00 PM EST [facility] 500 Name Value Range Interpretation Code Description Data Chiqui rce(s) Supporting Document(s ) UNK <item><content [facility] styleCode="Bold"> Medical Cent er Culture Status </content>
<t able><tbody><tr>< td>Specimen Number:</td><td>[id number]</td></tr ><tr><td>Sample Collection Date/Time: </td><td> 0 12:50 PM</td></tr><tr>< td>Specimen Source:</td><td>B LOOD</td></tr><tr ><td>Culture Report:</td><td>C ulture in progress </td></tr><tr><td >Culture Status:</td><td>P reliminary </td></tr><tr><td >Blood Culture:</td><td> Collection Plate Date: 04/01/2019 13:24 </td></tr></tbody ></table></item> UNK <item><content [facility] styleCode="Bold"> Medical [facility] er Culture Report </content>
<t able><tbody><tr>< td>Specimen Number:</td><td>[id number]</td></tr ><tr><td>Sample Collection Date/Time: </td><td> 0 12:50 PM</td></tr><tr>< td>Specimen Source:</td><td>B LOOD</td></tr><tr ><td>Blood Culture:</td><td> Collection Plate Date: 04/01/2019 13:24 </td></tr><tr><td >Culture Status:</td><td>P reliminary </td></tr><tr><td >Culture Report:</td><td>C ulture in progress </td></tr></tbody ></table></item> Procedure Social History Code Duration Value Status Description Data Source(s ) Smoking 04/01/2019 Not Known completed Not Known [facility] 07:40:00 PM EST Medical C enter Smoking 04/01/2019 Not Known completed Not Known [facility] 05:47:00 PM EST Medical C enter Smoking 04/01/2019 Not Known completed Not Known [facility] 12:43:00 PM EST Medical C enter Smoking 04/01/2019 Not Known completed Not Known [facility] 12:40:00 PM EST Medical C enter Smoking 10/29/2018 Occasional Smoker completed Occasional Smoker [facility] 12:36:00 PM EDT Medical C enter Smoking 10/29/2018 Occasional Smoker completed Occasional Smoker [facility] 12:30:00 PM EDT Medical C enter Smoking 10/29/2018 Occasional Smoker completed Occasional Smoker [facility] 12:18:00 PM EDT Medical C enter Vital Signs ID Date Data Source UNK Name Value Range Interpretation Code Description Data Source(s) Oxygen saturation 98 % 98 % [facility] Arterial blood Medical Center by Pulse oximetry Body temperature 37.516142 37.909359 [facility] Respiratory rate 16 /min 16 /min [facility] Heart rate 76 /min 76 /min [facility] Diastolic blood 64 mm[Hg] 64 mm[Hg] [facility] Systolic blood 100 mm[Hg] 100 mm[Hg] [facility] Body weight 64.881283 64.503613 kg [facility] Measured kg Medical Center Respiratory rate 23 /min 23 /min [facility] Heart rate 88 /min 88 /min [facility] Diastolic blood 76 mm[Hg] 76 mm[Hg] [facility] Systolic blood 106 mm[Hg] 106 mm[Hg] [facility] Inhaled oxygen 50 % 50 % [facility] Medical [facility] ter Body temperature 36.515124 36.836122 [facility] Respiratory rate 16 /min 16 /min [facility] Heart rate 76 /min 76 /min [facility] Diastolic blood 59 mm[Hg] 59 mm[Hg] [facility] Systolic blood 94 mm[Hg] 94 mm[Hg] [facility] Respiratory rate 16 /min 16 /min [facility] Heart rate 72 /min 72 /min [facility] Diastolic blood 63 mm[Hg] 63 mm[Hg] [facility] Systolic blood 94 mm[Hg] 94 mm[Hg] [facility] Inhaled oxygen 50 % 50 % [facility] Medical [facility] Body temperature 36.326242 36.446301 [facility] Respiratory rate 15 /min 15 /min [facility] Heart rate 71 /min 71 /min [facility] Diastolic blood 63 mm[Hg] 63 mm[Hg] [facility] Systolic blood 91 mm[Hg] 91 mm[Hg] [facility] Medical Center Inhaled oxygen 50 % 50 % [facility] concentration [facility] [address] Body temperature 36.037020 36.614657 [facility] Body weight 63.999770 63.453594 kg [facility] Measured kg Medical Center Oxygen saturation 100 % 100 % [facility] in Arterial blood Medical Center by Pulse oximetry Inhaled oxygen 50 % 50 % [facility] concentration [facility] [address] Inhaled oxygen 50 % 50 % [facility] concentration Medical [address] Body temperature 36.765802 36.254623 [facility] Oxygen saturation 100 % 100 % [facility] in Arterial blood Medical Center by Pulse oximetry Oxygen saturation 100 % 100 % [facility] in Arterial blood Medical Center by Pulse oximetry Oxygen saturation 100 % 100 % [facility] in Arterial blood Medical Center by Pulse oximetry Body weight 70.889770 70.946962 kg [facility] Measured kg Medical Center Body temperature 36.092250 36.402087 [facility] Respiratory rate 18 /min 18 /min [facility] Oxygen saturation 99 % 99 % [facility] in Arterial blood [facility] Center by Pulse oximetry Heart rate 91 /min 91 /min [facility] Body height 167.771887 167.344639 cm [facility] Diastolic blood 109 mm[Hg] 109 mm[Hg] [facility] pressure Medical Center Systolic blood 147 mm[Hg] 147 mm[Hg] [facility] Medical Center Body mass index 25.0 kg/m2 25.0 kg/m2 [facility] (BMI) [Ratio] Medical [facility] ter Patient Treatment Plan of Care Planned Activity Planned Date Details Description Data Source (s) Sucralfate 100 MG/ML Oral Sa [facility] [Carafate] [place]
--- NOTE | 2019-11-26 11:19 | BHS.RME ---
Substance Use & Tx History - Substance Use History Alcohol Substance amount: six pack beers Frequency of use: Daily Substance route: Oral Date of Last Use: 11/26/19 Heroin Substance amount: 4-5 bags Frequency of use: Daily Substance route: Inhalation (ex: sniffing or snorting) Date of Last Use: 11/25/19 Cocaine-Crack Substance amount: $40-80 Frequency of use: Daily Substance route: Smoking Date of Last Use: 11/25/19 Nicotine Substance amount: 1/2 pack Frequency of use: Daily Substance route: Smoking Date of Last Use: 11/26/19 Physical/Psych/Mental Status - Behavior General Behavior: Increased activity (restlessness, agitation) Eye Contact: Normal - Cooperativeness Cooperativeness: Cooperative - Thinking Thought Processes: Tight, Logical, Goal Directed - Physical Health Problems Is patient presently having any pain?: No Does patient presently have any injuries (include location): No Does patient currently have a fever: No Is patient : No COWS - Scale Resting Pulse: 1= UT 81-100 Sweatin= Beads of Sweat on Face Restless Observation: 3= Extraneous Movement Pupil Size: 1= Pupils >than Normal Bone or Joint Aches: 1= Mild Discomfort Runny Nose/ Eye Tearin= Runny Nose/Eyes GI Upset > 30mins: 3= Vomiting/Diarrhea Tremor Observation: 2= Slight Tremor Visible Yawning Observation: 2= >3x During Session Anxiety or Irritability: 2=Irritable/Anxious Goose Flesh Skin: 0=Smooth Skin COWS Score: 20 CIWA Nausea/Vomitin Muscle Tremors: 1-None Visible, but [place] Anxiety: 2 Agitation: 3 Paroxysmal Sweats: 2 Orientation: 0-Oriented Tacttile Disturbances: 2-Mild Itch/Numbness/Burn Auditory Disturbances: 0-None Visual Disturbances: 0-None Headache: 2-Mild CIWA-Ar Total Score: 18
--- NOTE | 2019-11-26 12:30 | HP ---
COWS - Scale Resting Pulse: 1= OK 81-100 Sweatin= Beads of Sweat on Face Restless Observation: 3= Extraneous Movement Pupil Size: 1= Pupils >than Normal Bone or Joint Aches: 1= Mild Discomfort Runny Nose/ Eye Tearin= Runny Nose/Eyes GI Upset > 30mins: 3= Vomiting/Diarrhea Tremor Observation: 2= Slight Tremor Visible Yawning Observation: 2= >3x During Session Anxiety or Irritability: 2=Irritable/Anxious Goose Flesh Skin: 0=Smooth Skin COWS Score: 20 CIWA Score Nausea/Vomitin Muscle Tremors: 1-None Visible, but [place] Anxiety: 2 Agitation: 3 Paroxysmal Sweats: 2 Orientation: 0-Oriented Tacttile Disturbances: 2-Mild Itch/Numbness/Burn Auditory Disturbances: 0-None Visual Disturbances: 0-None Headache: 2-Mild CIWA-Ar Total Score: 18 - Admission Criteria [facility] Guidelines: Admission for Medically Managed Detox: Requires at least one of the followin. CIWA greater than 12 2. Seizures within the past 24 hours 3. Delirium tremens within the past 24 hours 4. Hallucinations within the past 24 hours 5. Acute intervention needed for co occurring medical disorder 6. Acute intervention needed for co occurring psychiatric disorder 7. Severe withdrawal that cannot be handled at a lower level of care (continued vomiting, continued diarrhea, abnormal vital signs) requiring intravenous medication and/or fluids 8. Admitting History and Physical - Admission Chief Complaint: Mr. Berman is a 59 yo man who presents to [facility] requesting detox admission for alcohol and heroin use. He left here AMA in February 2019, now states "I wasn't ready". He is now "motivated" to complete. History of Present Illness: Mr. Berman is a 59 yo man who presents to [facility] requesting detox admission for alcohol and heroin use. He left here AMA in February 2019, now states "I wasn't ready". He is now "motivated" to complete. 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 Heroin Substance amount: 4-5 bags Frequency of use: Daily Substance route: Inhalation (ex: sniffing or snorting) Date of Last Use: 11/25/19 First use age 20 y No OD No Narcan Cocaine-Crack Substance amount: $40-80 Frequency of use: Daily Substance route: Smoking Date of Last Use: 11/25/19 First use age 20 y Nicotine Substance amount: 1/2 pack Frequency of use: Daily Substance route: Smoking Date of Last Use: 11/26/19 First use age 19 y History Source: Patient Limitations to Obtaining History: No Limitations - Past Medical History Cardiovascular: Yes: HTN Gastrointestinal: Yes: GERD - Past Surgical History Past Surgical History: Yes: None - Smoking History Smoking history: Current every day smoker Have you smoked in the past 12 months: Yes Aproximately how many cigarettes per day: 10 - Alcohol/Substance Use Hx Alcohol Use: Yes (2 packs of 6 beers daily) History of Substance Use: reports: Cocaine, Heroin, Marijuana - Social History ADL: Independent 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 Loss (lost about 10-15 lbs in the past 9 months.) Respiratory: reports: No Symptoms reported Cardiac: reports: No Symptoms Reported GI: reports: Diarrhea, Nausea, Vomiting : reports: No Symptoms Reported Musculoskeletal: reports: Other (chronic callouses on feet) Integumentary: reports: Dryness Neuro: reports: No Symptoms reported Endocrine: reports: No Symptoms Reported Hematology: reports: No Symptoms Reported Psychiatric: reports: Anxious Patient History - Patient Medical History Hx Anemia: No Hx Asthma: No Hx Chronic Obstructive Pulmonary Disease (COPD): No Hx Cancer: No Hx Cardiac Disorders: No Hx Congestive Heart Failure: No Hx Hypertension: Yes (no meds) Hx Hypercholesterolemia: No Hx Pacemaker: No HX Cerebrovascular Accident: No Hx Seizures: No Hx Dementia: No Hx Diabetes: No Hx Gastrointestinal Disorders: Yes (GERD) Hx Liver Disease: No Hx Genitourinary Disorders: No Hx Sexually Transmitted Disorders: No Hx Renal Disease (ESRD): No Hx Thyroid Disease: No Hx Human Immunodeficiency Virus (HIV): No (NEGATIVE HX last 2015 ) Hx Hepatitis C: No (negative) Hx Depression: No Hx Suicide Attempt: No Hx Bipolar Disorder: No Hx Schizophrenia: No - Patient Surgical History Past Surgical History: No Hx Neurologic Surgery: No Hx Cataract Extraction: No Hx Cardiac Surgery: No Hx Lung Surgery: No Hx Breast Surgery: No Hx Breast Biopsy: No Hx Abdominal Surgery: No Hx Appendectomy: No Hx Cholecystectomy: No Hx Genitourinary Surgery: No Hx Section: No Hx Orthopedic Surgery: No Anesthesia Reaction: No - PPD History Date: 02/16/17 Results: negative - Smoking Cessation Smoking history: Current every day smoker Have you smoked in the past 12 months: Yes Aproximately how many cigarettes per day: 10 Hx Chewing Tobacco Use: No Initiated information on smoking cessation: Yes 'Breaking Loose' booklet given: 11/26/19 Admission Physical Exam [facility] - Physical General Appearance: Yes: No Apparent Distress, Nourished, Thin, Anxious HEENTM: Yes: EOMI, Hearing grossly Normal, Normocephalic, Normal Voice Respiratory: Yes: Lungs Clear, No Respiratory Distress, No Accessory Muscle Use Neck: Yes: Within Normal Limits, Supple Breast: Yes: Breast Exam Deferred Cardiology: Yes: Regular Rhythm, Regular Rate Abdominal: Yes: Normal Bowel Sounds, Non Tender, Flat, Soft Genitourinary: Yes: Other (deferred) Back: Yes: Normal Inspection Musculoskeletal: Yes: Gait Steady Extremities: Yes: Normal Inspection, Non-Tender 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: Yes: Alert, Normal Response Integumentary: Yes: Other (legs: multiple hyperpigmented spots bilaterally: he states from scratching) - Diagnostic (1) PPD positive, treated Current Visit: Yes Status: Chronic Comment: 1. chest xray (2) Homeless Current Visit: Yes Status: Acute Comment: 1. counselor to discuss follow up care with pt (3) Alcohol dependence with uncomplicated withdrawal Current Visit: No Status: Chronic Comment: 1. Admit to detox 2. Librium protocol 3. routine labs to include LFTs, if abnormally elevated will switch off Librium to alternative benzodiazepine (4) Cocaine dependence Current Visit: No Status: Chronic Qualifiers: Substance use status: uncomplicated Qualified Code(s): F14.20 - Cocaine dependence, uncomplicated Comment: 1. Substance use education, pt requested: some information given during admission process, other information to be provided by counselors on detox unit (5) Hypertension Current Visit: No Status: Chronic Qualifiers: Hypertension type: essential hypertension Qualified Code(s): I10 - Essential (primary) hypertension Comment: 1. montior BP routinely 2. noncompliant with medication, no meds in one year (6) Nicotine dependence Current Visit: No Status: Chronic Qualifiers: Nicotine product type: cigarettes Substance use status: uncomplicated Qualified Code(s): F17.210 - Nicotine dependence, cigarettes, uncomplicated (7) Opioid dependence with withdrawal Current Visit: No Status: Chronic Comment: 1. Admit to detox 2. methadone protocol 3. EKG to check QTc 4. comfort medication Cleared for Admission [facility] - Detox or Rehab [facility] Level of Care: Medically Managed Detox Regimen/Protocol: Methadone/Librium Breathalyzer - Breathalyzer Breathalyzer: 0.007 Urine Drug Screen - Test Device Lot number: [id number] Expiration date: 06/19/21 - Control Is test valid?: Yes - Results Drug screen NEGATIVE: No Urine drug screen results: AVNI-Cocaine, FEN-Fentanyl, MOP-Opiates Inpatient Rehab Admission - Rehab Decision to Admit Inpatient rehab admission?: No
[2019-11-26] MEDS ORDERED: NICOTINE POLACRILEX 2 MG GUM BUC PRN (12:41)
[2019-11-26] MEDS ORDERED: BISMUTH SUBSALICYLATE 524 MG/30 ML UD PO PRN (12:41)
[2019-11-26] MEDS ORDERED: ACETAMINOPHEN 325 MG TABLET (FP) PO PRN ×2 (12:41)
[2019-11-26] MEDS ORDERED: MENTHOL/PHENOL 1 EACH UD MM PRN (12:41)
[2019-11-26] MEDS ORDERED: METHOCARBAMOL 500 MG TABLET PO PRN (12:41)
[2019-11-26] MEDS ORDERED: MAG HYDROX/AL HYDROX/SIMETH 30 ML UNIT-DOSE CUP PO PRN (12:41)
[2019-11-26] MEDS ORDERED: cloNIDine HCL 0.1 MG TABLET PO PRN (12:41)
[2019-11-26] MEDS ORDERED: METHADONE HCL 10 MG TABLET (FOR DETOX USE ONLY) PO ONE (12:41)
[2019-11-26] MEDS ORDERED: IBUPROFEN 400 MG TABLET (FP) PO PRN (12:41)
[2019-11-26] MEDS ORDERED: MAGNESIUM HYDROX 2400MG/30ML ORAL SUSPENSION 30 ML CUP PO PRN (12:41)
[2019-11-26] MEDS ORDERED: chlordiazePOXIDE HCL 25 MG CAPSULE PO PRN (12:41)
[2019-11-26] MEDS ORDERED: MAGNESIUM CITRATE 300 ML BOTTLE PO PRN (12:41)
[2019-11-26] MEDS ORDERED: ONDANSETRON *ODT* 4 MG TABLET SL PRN (12:41)
[2019-11-26 13:02] VITALS: BMI 20.9
[2019-11-26] MEDS: NICOTINE 14 MG/24 HOURS TOPICAL PATCH TD SCH (13:56)
[2019-11-26] MEDS: hydrOXYzine PAMOATE 25 MG CAPSULE (FP) PO SCH ×3 (14:02→22:01)
--- OUTSIDE RECORDS SUMMARY | 2019-11-26 14:06 | XMS ---
[...] is protected by Article 27-F of the [facility] Public Health law. If you continue you may haveaccess to information: Regarding HIV / AIDS; Provided by facilities licensed or operated by the [facility] Office of Mental Health; or Provided by the [facility] Office for People With Developmental Disabilities. If such information is present, then the following [facility] mandated warning applies: This information has [...] law may result in a fine or senior care sentence or both. A general authorization for the release of medical or other information is NOT sufficient authorization for further disclosure. Encounters Encounter Providers Location Date Indications Data Source(s ) Outpatient Attender: [id number] [facility] 10/10/2019 [facility] ([facility] 05:29:18 PM [facility] EDT [facility]) Patient admitted. Outpatient Attender: [id number] [facility] 05/01/2019 01:55:31 PM [facility] ([facility]) Patient admitted. [facility] 12:42:00 [facility] AKINOAttender: STAFF ED STAFF PM EST - 04/02/[address] [place] [address] PHYSICIANAdmitter: LESLYE 10:35:00 AM EST PANTERA WESTOReferrer: LESLYE GAVIN Patient discharged. Emergency H 10/29/2018 11:48:00 AM EDT - [address] [place] [address] 04:30:00 PM EDT Patient discharged. [facility] 02:31:00 PM [facility] EDT - 12/11/2017 11:59:00 Hospital PM EDT [facility]: [facility] 10/12/2017 12:00:00 AM [facility] EDT - 11/11/2017 11:59:00 Hospital PM EDT [facility] 08/12/2017 12:40:00 PM [facility] EDT - 09/10/2017 11:59:00 Hospital PM EDT R Attender: Ruben [facility] 04/14/2017 12:00:00 AM [facility] EST - 05/11/2017 11:59:00 Hospital PM EST Medications Medication Brand Start Product Dose Route Administrative Pharmacy [facility] Indications Reaction Description Data Name Date [...] relationship to [place] Inf ormation type bowens [employer] MEDICAID [id number] SP [id number] COMM PLAN MEDICAID [id number] SP [id number] UN[employer] MEDICAID [id number] SP [id number] COMM PLAN PPO [id number] [place] [id number] EMPIRE BLUE O [id number] 01 [id number] [facility] O [id number] HEALTHCARE ACUTE O [facility] O [id number] Medicaid Medicaid [id number] Problems, Conditions, and Diagnoses Code Display Name Description Problem Type Effective Data Dates Source(s) K21.9 Gastro-esophageal GASTRO-ESOPHAGEAL Diagnosis 04/02/2019 [facility] reflux disease REFLUX DISEASE 10:35:00 AM Medic al without WITHOUT EST Center esophagitis ESOPHAGITIS T40.5X1A Poisoning by POISONING BY Diagnosis 04/02/2019 [facility] cocaine, COCAINE, 10:35:00 AM Medical accidental ACCIDENTAL EST Center (unintentional), (UNINTENTIONAL), initial encounter INIT I10 Essential ESSENTIAL Diagnosis 04/02/2019 [facility] (primary) (PRIMARY) 10:35:00 AM Medical hypertension HYPERTENSION EST Center I16.0 Hypertensive HYPERTENSIVE Diagnosis 04/02/2019 [facility] urgency URGENCY 10:35:00 AM Medical EST Center E87.6 Hypokalemia HYPOKALEMIA Diagnosis 04/02/2019 [facility] 10:35:00 AM Medical EST Center E87.1 Hypo-osmolality HYPO-OSMOLALITY Diagnosis 04/02/2019 [facility] and hyponatremia AND HYPONATREMIA 10:35:00 AM edical EST Center J96.00 Acute respiratory ACUTE RESPIRATORY Diagnosis 04/02/2019 [facility] failure, FAILURE, UNSP W 10:35:00 AM Medical unspecified HYPOXIA OR EST Center whether with HYPERCAPNIA hypoxia or hypercapnia T40.2X1A Poisoning by other POISONING BY OTH Diagnosis 04/02/2019 [facility] opioids, OPIOIDS, 10:35:00 AM Medical accidental ACCIDENTAL EST Center (unintentional), (UNINTENTIONAL), initial encounter INIT R56.9 Unspecified UNSPECIFIED Diagnosis 04/01/2019 [facility] convulsions CONVULSIONS 12:42:00 PM Medical EST Center K20.9 Esophagitis, ESOPHAGITIS, Diagnosis 10/29/2018 [facility] unspecified UNSPECIFIED 11:48:00 AM Medical EDT Center R13.12 Dysphagia, DYSPHAGIA, Diagnosis 10/29/2018 [facility]ca oropharyngeal OROPHARYNGEAL 11:48:00 AM Medical phase PHASE EDT Center 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 <content [facility] [Units/volume] 68 styleCode="Dasia [facility] in Serum or d">Thyroid Medical Plasma by Stimulating Center Detection Hormone limit <= 0.05 </content>1.69 mIU/L MIU/L<content styleCode="Bharti lics"> (0.465-4.68 MIU/L)</conten t> ID Date Data Source HematologyRou.[id number] 04/02/2019 06:00:00 AM EST [facility] 0500 Name Value Range Interpretation Description Data [...] Basophils 0.0-1.0 <content [facility] [#/volume] in styleCode="Bold [facility] Blood by ">Basophil Medical [...] (0.0 KCUMM)</content > ID Date Data Source GFR(Creatinine).[id number] 04/02/2019 06:00:00 AM ASMITA [facility] 0-0500 Name Value Range Interpretation Code Description Data Chiqui rce(s) Supporting Document(s ) UNK > 60 <content [facility] styleCode="Bold"> Medical Cent er EGFR </content>80 GFR<content styleCode="Italic s"> (> 60 GFR)</content> ID Date Data Source Coagulation 04/02/2019 06:00:00 AM [facility] ical Center Rout.[id number] EST Name Value Range Interpretation Description Data Sup porting Code Source(s) Document(s ) INR in 0.80-1.2 <content [facility] Platelet poor 0 styleCode="Bold" [facility] plasma by >INR Medical Coagulation </content>1.13 Center assay #<content styleCode="Itali cs"> (0.80-1.20 #)</content> UNK 9.0-13.0 <content [facility] styleCode="Bold" [facility] >Protime Medical </content>12.5 Center SEC<content styleCode="Itali cs"> (9.0-13.0 SEC)</content> aPTT in 25.1-36. <content [facility] Platelet poor 5 styleCode="Bold" [facility] plasma by >Partial Medical Coagulation Thromboplastin Center assay Time </content>25.4 SEC<content styleCode="Itali cs"> (25.1-36.5 SEC)</content> ID Date Data Source CHMROUTINECCDA.[id number] 04/02/2019 06:00:00 AM EST [facility] -0500 Name Value Range Interpretation Description Data Sup porting Code Source(s) Document(s ) UNK 4.2-5.8 <content [facility] styleCode="Dasia [facility] d">Hemoglobin Medical A1C [place] </content>5.2 %<content styleCode="Bharti lics"> (4.2-5.8 %)</content> Magnesium 1.6-2.3 <content [facility] [Mass/volume] styleCode="Dasia [facility] in Serum or d">Magnesium Medical Plasma </content>1.7 Center MG/DL<content styleCode="Bharti lics"> (1.6-2.3 MG/DL)</conten t> UNK 2.3-3.5 <content [facility] styleCode="Dasia [facility] d">Globulin Medical </content>2.8 Center G/DL<content styleCode="Bharti lics"> (2.3-3.5 G/DL)</content > UNK >= 1.0 <content [facility] styleCode="Dasia [facility] d">AG Ratio Medical </content>1.1 Center <content styleCode="Bharti lics"> (>= 1.0 )</content> Phosphate 2.5-4.5 <content [facility] [Mass/volume] styleCode="Dasia Keyess in Serum or d">Phosphorus Medical Plasma </content>4.4 Center MG/DL<content styleCode="Bharti lics"> (2.5-4.5 MG/DL)</conten t> Protein 6.3-8.2 Below low normal <content [facility] [Mass/volume] styleCode="Dasia [facility] in Serum or d">Total Medical Plasma Protein Center </content>5.9 G/DL L<content styleCode="Bharti lics"> (6.3-8.2 G/DL)</content > ID Date Data Source CardiacMarkers.[id number] 04/02/2019 06:00:00 AM ASMITA [facility] -0500 Name Value Range Interpretation Description Data [...] 0.034 NG/ML)</content > ID Date Data Source BMP.[id number] 04/02/2019 06:00:00 AM ASMITA [facility] Name Value Range Interpretation Description Data Sup porting Code Source(s) Document(s ) Sodium 137-145 <content [facility] [Moles/volume] in styleCode="Bold"> [facility] Serum or Plasma Sodium Medical </content>138 Center [...] <content [facility] [Moles/volume] in normal styleCode="Bold"> [facility] Serum or Plasma Chloride Medical </content>108 Center [...] Kenny hs Serum or Plasma Calcium Medical </content>8.5 Center MG/DL<content styleCode="Italic s"> (8.4-10.2 MG/DL)</content> UNK > 60 <content [facility] styleCode="Bold"> [facility] EGFR </content>80 Medical GFR<content Center styleCode="Italic s"> (> 60 GFR)</content> Alkaline 38-126 <content [facility] phosphatase styleCode="Bold"> [facility] [Enzymatic Alkaline Medical activity/volume] [...] s"> (3.5-5.0 G/DL)</content> ID Date Data Source CHMROUTINECCDA.[id number] 04/01/2019 05:15:00 PM EST [facility] -0500 Name Value Range Interpretation Code Description Data Chiqui rce(s) Supporting Document(s ) UNK 0.7-2.0 <content [facility] styleCode="Bold" Medical Cente r >Lactic Acid 4hr </content>1.5 MMOLL<content styleCode="Itali cs"> (0.7-2.0 MMOLL)</content> ID Date Data Source GFR(Creatinine).[id number] 04/01/2019 02:00:00 PM EST [facility] 0-0500 Name Value Range Interpretation Code Description Data Chiqui rce(s) Supporting Document(s ) UNK > 60 <content [facility] styleCode="Bold"> Medical Cent er EGFR </content>128 GFR<content styleCode="Italic s"> (> 60 GFR)</content> ID Date Data Source BMP.[id number] 04/01/2019 02:00:00 PM EST [facility] Name Value Range Interpretation Description Data Sup porting Code Source(s) Document(s ) Sodium 137-145 Below low normal <content [facility] [Moles/volume] styleCode="Dasia [facility] in Serum or d">Sodium Medical Plasma </content>136 Center MEQ/L L<content styleCode="Bharti lics"> (137-145 MEQ/L)</conten t> UNK 9-20 <content [facility] styleCode="Dasia [facility]ca d">BUN Medical </content>14 Center MG/DL<content styleCode="Bharti lics"> [...] t> Creatinine 0.5-1.3 <content [facility] [Mass/volume] styleCode="Dasia [facility] in Serum or d">Creatinine Medical Plasma </content>0.8 [...] (> 60 GFR)</content> ID Date Data Source Microbiology.[id number] 04/01/2019 01:59:00 PM EST [facility] 500 Name Value Range Interpretation Code Description Data Chiqui rce(s) Supporting Document(s ) UNK <item><content [facility] styleCode="Bold"> Medical Cent er Culture Status </content>
<t able><tbody><tr>< td>Specimen Number:</td><td>[id number]</td></tr ><tr><td>Sample Collection Date/Time: </td><td> 0 1:59 PM</td></tr><tr>< td>Specimen Source:</td><td>B LOOD</td></tr><tr ><td>Culture Status:</td><td>P reliminary </td></tr><tr><td >Blood Culture:</td><td> Collection Plate Date: 04/01/2019 14:11 </td></tr><tr><td >Culture Report:</td><td>C ulture in progress </td></tr></tbody ></table></item> UNK <item><content [facility] styleCode="Bold"> Medical Cent er Culture Report </content>
<t able><tbody><tr>< td>Specimen Number:</td><td>[id number]</td></tr ><tr><td>Sample Collection Date/Time: </td><td> 0 1:59 PM</td></tr><tr>< td>Specimen Source:</td><td>B LOOD</td></tr><tr ><td>Culture Report:</td><td>C ulture in progress </td></tr><tr><td >Blood Culture:</td><td> Collection Plate Date: 04/01/2019 14:11 </td></tr><tr><td >Culture Status:</td><td>P reliminary </td></tr></tbody ></table></item> ID Date Data Source CHMROUTINECCDA.[id number] 04/01/2019 01:25:00 PM EST [facility] -0500 Name Value Range Interpretation Description Data Sup porting Code Source(s) Document(s ) Lactate 0.7-2.0 Above upper panic <content [facility] [Mass/volum limits styleCode="Bold Medical e] in Serum ">Lactic Acid Center or Plasma </content><cont ent styleCode="Bold ">9.8 MMOLL HH</content><co ntent styleCode="Ital ics"> (0.7-2.0 MMOLL)</content > ID Date Data Source Urinalysis.[id number] 04/01/2019 01:24:00 PM EST [facility] 0 Name Value Range Interpretation Description Data Sup porting Code Source(s) Document(s ) Glucose NEGATIVE <content [facility] [Mass/volume] styleCode="Dasia [facility] in Urine by d">Urine Medical Test strip Glucose Center </content>250 MG/DL<content styleCode="Bharti lics"> (NEGATIVE MG/DL)</conten t> UNK CLEAR <content [facility] styleCode="Dasia [facility] d">Urine Medical Clarity Center </content>JANE R <content styleCode="Bharti lics"> (CLEAR )</content> UNK NEGATIVE <content [facility] styleCode="Dasia [facility] d">Urine Medical Bilirubin Center </content>NEGA TIVE <content styleCode="Bharti lics"> (NEGATIVE )</content> Color of Urine YELLOW <content [facility] styleCode="Dasia [facility] d">Color, Medical Urine Center </content>YELL OW <content styleCode="Bharti lics"> (YELLOW )</content> Hemoglobin NEGATIVE <content [facility] [Presence] in styleCode="[facility] Urine by Test d">Urine Blood Medical strip </content>TRAC Center E <content styleCode="Bharti lics"> (NEGATIVE )</content> Ketones NEGATIVE <content [facility] [Mass/volume] styleCode="Dasia Keyess in Urine by d">Urine Medical Test strip Ketone Center </content>NEGA TIVE MG/DL<content styleCode="Bharti lics"> (NEGATIVE MG/DL)</conten t> Specific 1.015-1.02 <content [facility] gravity of 5 styleCode="Dasia [facility] Urine by Test d">Urine Medical strip Specific Center [place] </content>1.02 0 <content styleCode="Bharti lics"> (1.015-1.025 )</content> pH of Urine by 4.5-8.0 <content [facility] Test strip styleCode="Dasia [facility]ca d">Urine pH Medical </content>7.0 Center <content styleCode="Bharti lics"> (4.5-8.0 )</content> Nitrite NEGATIVE <content [facility] [Presence] in styleCode="Dasia Keyess Urine by Test d">Urine Medical strip Nitrite Center </content>NEGA TIVE <content styleCode="Bharti lics"> (NEGATIVE )</content> Protein NEGATIVE <content [facility] [Mass/volume] styleCode="Dasia Keyess in Urine by d">Urine Medical Test strip Protein Center </content>30 MG/DL<content styleCode="Bharti lics"> (NEGATIVE MG/DL)</conten t> Leukocyte NEGATIVE <content [facility] esterase styleCode="Dasia Keyess [Presence] in d">Urine Medical Urine by Test Leukocyte Center strip </content>NEGA TIVE <content styleCode="Bharti lics"> (NEGATIVE )</content> Urobilinogen 0.2-1.0 <content [facility] [Units/volume] styleCode="[facility] in Urine by d">Urine Medical Test strip Urobilinogen Center </content>0.2 MG/DL<content styleCode="Bharti lics"> (0.2-1.0 MG/DL)</conten t> UNK 0-3 <content [facility] styleCode="Dasia V[facility]ca d">Urine White Medical Blood Cell Center </content>0-3 HPF<content styleCode="Bharti lics"> (0-3 HPF)</content> UNK 0-3 <content [facility] styleCode="Dasia Vianca d">Urine Red Medical Blood Cell Center </content>0-3 HPF<content styleCode="Bharti lics"> (0-3 HPF)</content> ID Date Data Source Microbiology.[id number] 04/01/2019 01:24:00 PM EST [facility] 500 Name Value Range Interpretation Code Description Data Chiqui rce(s) Supporting Document(s ) UNK <item><content [facility] styleCode="Bold"> Medical Cent er Culture Report </content>
<t able><tbody><tr>< td>Specimen Number:</td><td>[id number]</td></tr ><tr><td>Sample Collection Date/Time: </td><td> 0 1:24 PM</td></tr><tr>< td>Specimen Source:</td><td>U RINE BLADDER</td></tr> <tr><td>Culture Report:</td><td>C ulture in progress </td></tr><tr><td >Urine Culture:</td><td> Collection Plate Date: 04/01/2019 13:35 </td></tr><tr><td >Culture Status:</td><td>P reliminary </td></tr></tbody ></table></item> UNK <item><content [facility] styleCode="Bold"> Medical Cent er Culture Status </content>
<t able><tbody><tr>< td>Specimen Number:</td><td>[id number]</td></tr ><tr><td>Sample Collection Date/Time: </td><td> 0 1:24 PM</td></tr><tr>< td>Specimen Source:</td><td>U RINE BLADDER</td></tr> <tr><td>Urine Culture:</td><td> Collection Plate Date: 04/01/2019 13:35 </td></tr><tr><td >Culture Status:</td><td>P reliminary </td></tr><tr><td >Culture Report:</td><td>C ulture in progress </td></tr></tbody ></table></item> ID Date Data Source CHMROUTINECCDA.[id number] 04/01/2019 01:24:00 PM EST [facility] -0500 Name Value Range Interpretation Description Data Sup porting Code Source(s) Document(s ) Cannabinoids <content [facility] [Presence] in styleCode="Dasia [facility] Urine by Screen d">Cannabinoid Medical method >50 ng/mL [facility] </content>NEGA TIVE NG/ML (Reference Range: not available)<br/ > ID Date Data Source Liver 04/01/2019 01:15:00 PM EST [facility] Profile.[id number] Name Value Range Interpretation Description Data Sup porting Code Source(s) Document(s ) Bilirubin.total 0.2-1.3 <content [facility] [Mass/volume] in styleCode="Bold"> [facility] Serum or Plasma Bilirubin Total Medical </content>0.4 Center MG/DL<content styleCode="Italic s"> (0.2-1.3 MG/DL)</content> Alkaline 38-126 <content [facility] phosphatase styleCode="Bold"> [facility] [Enzymatic Alkaline Medical activity/volume] [...] (3.5-5.0 G/DL)</content> UNK 0.0-0.3 <content [facility] styleCode="Bold"> [facility] Bilirubin, Direct Medical </content>< 0.2 Center MG/DL<content styleCode="Italic s"> (0.0-0.3 MG/DL)</content> ID Date Data Source HematologyRou.[id number] 04/01/2019 01:15:00 PM EST [facility] 0500 Name Value Range Interpretation Description Data Sup porting Code Source(s) Document(s ) Hemoglobin <content [facility] [Mass/volume] in styleCode="Bold" [place] s Blood >Hemoglobin Medical </content>Test Center not performed. G/DL (Reference Range: not available)
Hematocrit <content [facility] [Volume styleCode="Bold" [facility] Fraction] of >Hematocrit Medical Blood by </content>Test [...] available)
Neutrophils <content [facility] [#/volume] in styleCode="Bold" [facility] Blood by >Neutrophil Medical Automated count </content>Test [...] /100 (Reference Range: not available)
UNK <content [facility] styleCode="Bold" [facility] >Eosinophil Medical Count Center </content>Test not performed. KCUMM (Reference Range: not available)
UNK <content [facility] styleCode="Bold" [facility] >Immature Medical Granulocyte Center Count </content>Test not performed. KCUMM (Reference Range: not available)
UNK <content [facility] styleCode="Bold" [facility] >Immature Medical Granulocyte Center Ratio </content>Test not performed. % (Reference Range: not available)
ID Date Data Source GFR(Creatinine).[id number] 04/01/2019 01:15:00 PM EST [facility] 0-0500 Name Value Range Interpretation Code Description Data Chiqui rce(s) Supporting Document(s ) UNK > 60 <content [facility] styleCode="Bold"> Medical Cent er EGFR </content>89 GFR<content styleCode="Italic s"> (> 60 GFR)</content> ID Date Data Source Coagulation 04/01/2019 01:15:00 PM [facility] ical Center Rout.[id number] EST Name Value Range Interpretation Description Data [...] cs"> (0.80-1.20 #)</content> ID Date Data Source CHMROUTINECCDA.[id number] 04/01/2019 01:15:00 PM [facility] -0500 Name Value Range Interpretation Description Data Sup porting Code Source(s) Document(s ) UNK 30-110 <content [facility] styleCode="Bold Medical ">Amylase Center </content>84 IU/L<content styleCode="Ital ics"> (30-110 IU/L)</content> Lipase 23-300 <content [facility] [Enzymatic styleCode="Bold Medical activity/vo ">Lipase Center lume] in </content>186 Serum or IU/L<content Plasma styleCode="Ital ics"> (23-300 IU/L)</content> ID Date Data Source CardiacMarkers.[id number] 04/01/2019 01:15:00 PM [facility] -0500 Name Value Range Interpretation Description Data Sup porting Code Source(s) Document(s ) Creatine 55-170 <content [facility] kinase styleCode="Bold [facility] [Enzymatic ">CK Medical activity/vol </content>140 Center ume] in IU/L<content Serum or styleCode="Ital Plasma ics"> (55-170 IU/L)</content> Troponin < 0.034 <content [facility] I.cardiac styleCode="Bold [facility] [Mass/volume ">Troponin I Medical ] in Serum </content>< Center or Plasma 0.012 NG/ML<content styleCode="Ital ics"> (< 0.034 NG/ML)</content > ID Date Data Source [facility].[id number] 04/01/2019 01:15:00 PM EST [facility] Name Value Range Interpretation Description Data [...] IU/L)</content> UNK > 60 <content [facility] styleCode="Bold"> [facility] EGFR </content>89 Medical GFR<content Center styleCode="Italic s"> (> 60 GFR)</content> Bilirubin.total 0.2-1.3 <content [facility] [Mass/volume] in styleCode="Bold"> [facility] hs Serum or Plasma Bilirubin Total Medical </content>0.4 Center MG/DL<content styleCode="Italic s"> (0.2-1.3 MG/DL)</content> Alkaline 38-126 <content [facility] phosphatase styleCode="Bold"> [facility] [Enzymatic Alkaline Medical activity/volume] [...] s"> (7-50 IU/L)</content> ID Date Data Source Microbiology.[id number] 04/01/2019 12:50:00 PM EST [facility] 500 Name Value Range Interpretation Code Description Data Chiqui rce(s) Supporting Document(s ) UNK <item><content [facility] styleCode="Bold"> Medical Cent er Culture Status </content>
<t able><tbody><tr>< td>Specimen Number:</td><td>[id number]</td></tr ><tr><td>Sample Collection Date/Time: </td><td> 0 12:50 PM</td></tr><tr>< td>Specimen Source:</td><td>B LOOD</td></tr><tr ><td>Culture Report:</td><td>C ulture in progress </td></tr><tr><td >Culture Status:</td><td>P reliminary </td></tr><tr><td >Blood Culture:</td><td> Collection Plate Date: 04/01/2019 13:24 </td></tr></tbody ></table></item> UNK <item><content [facility] styleCode="Bold"> Medical Cent er Culture Report </content>
<t able><tbody><tr>< td>Specimen Number:</td><td>[id number]</td></tr ><tr><td>Sample Collection Date/Time: </td><td> 0 12:50 PM</td></tr><tr>< td>Specimen Source:</td><td>B LOOD</td></tr><tr ><td>Blood Culture:</td><td> Collection Plate Date: 04/01/2019 13:24 </td></tr><tr><td >Culture Status:</td><td>P reliminary </td></tr><tr><td >Culture Report:</td><td>C ulture in progress </td></tr></tbody ></table></item> Procedure Social History Code Duration Value Status Description Data Source(s ) Smoking 04/01/2019 Not Known completed Not Known [facility] 07:40:00 PM EST Medical C enter Smoking 04/01/2019 Not Known completed Not Known [facility] 05:47:00 PM EST Medical C enter Smoking 04/01/2019 Not Known completed Not Known [facility] 12:43:00 PM EST Medical C enter Smoking 04/01/2019 Not Known completed Not Known [facility] 12:40:00 PM EST Medical C enter Smoking 10/29/2018 Occasional Smoker completed Occasional Smoker [facility] 12:36:00 PM EDT Medical C enter Smoking 10/29/2018 Occasional Smoker completed Occasional Smoker [facility] 12:30:00 PM EDT Medical C enter Smoking 10/29/2018 Occasional Smoker completed Occasional Smoker [facility] 12:18:00 PM EDT Medical C enter Vital Signs ID Date Data Source UNK Name Value Range Interpretation Code Description Data Source(s) Oxygen saturation 98 % 98 % [facility] in Arterial blood Medical Center by Pulse oximetry Body temperature 37.999517 37.871128 [facility] Respiratory rate 16 /min 16 /min [facility] Heart rate 76 /min 76 /min [facility] Diastolic blood 64 mm[Hg] 64 mm[Hg] [facility] Systolic blood 100 mm[Hg] 100 mm[Hg] [facility] Body weight 64.349119 64.047134 kg [facility] Measured kg Medical Center Respiratory rate 23 /min 23 /min [facility] Heart rate 88 /min 88 /min [facility] Diastolic blood 76 mm[Hg] 76 mm[Hg] [facility] Systolic blood 106 mm[Hg] 106 mm[Hg] [facility] Inhaled oxygen 50 % 50 % [facility] ter Body temperature 36.440831 36.878886 [facility] Respiratory rate 16 /min 16 /min [facility] Heart rate 76 /min 76 /min [facility] Diastolic blood 59 mm[Hg] 59 mm[Hg] [facility] Systolic blood 94 mm[Hg] 94 mm[Hg] [facility] Respiratory rate 16 /min 16 /min [facility] Heart rate 72 /min 72 /min [facility] Diastolic blood 63 mm[Hg] 63 mm[Hg] [facility] Systolic blood 94 mm[Hg] 94 mm[Hg] [facility] Inhaled oxygen 50 % 50 % [facility] concentration [facility] [address] Body temperature 36.764071 36.840881 [facility] Respiratory rate 15 /min 15 /min [facility] Heart rate 71 /min 71 /min [facility] Diastolic blood 63 mm[Hg] 63 mm[Hg] [facility] pressure [facility] Systolic blood 91 mm[Hg] 91 mm[Hg] [facility] Inhaled oxygen 50 % 50 % [facility] ter Body temperature 36.129595 36.430829 [facility] Body weight 63.478010 63.601242 kg [facility] Measured kg [facility] Oxygen saturation 100 % 100 % [facility] Arter[facility] blood [facility] by Pulse oximetry Inhaled oxygen 50 % 50 % [facility] [address] [facility] Inhaled oxygen 50 % 50 % [facility] ter Body temperature 36.439284 36.519912 [facility] Oxygen saturation 100 % 100 % [facility] Ar[facility] by Pulse oximetry Oxygen saturation 100 % 100 % [facility] Arter[facility] blood [facility] by Pulse oximetry Oxygen saturation 100 % 100 % [facility] Arter[facility] blood [facility] by Pulse oximetry Body weight 70.551554 70.196136 kg [facility] Measured kg [facility] Body temperature 36.707790 36.767730 [facility] Respiratory rate 18 /min 18 /min [facility] Oxygen saturation 99 % 99 % [facility] Arterial blood [facility] by Pulse oximetry Heart rate 91 /min 91 /min [facility] Body height 167.820843 167.823191 cm [facility] Diastolic blood 109 mm[Hg] 109 mm[Hg] [facility] pressure Medical Center Systolic blood 147 mm[Hg] 147 mm[Hg] [facility] Body mass index 25.0 kg/m2 25.0 kg/m2 [facility] (BMI) [Ratio] [facility] Patient Treatment Plan of Care Planned Activity Planned Date Details Description Data Source (s) Sucralfate 100 MG/ML Oral [facility] [Carafate] [place]
[2019-11-26 14:55] LABS: HEMATOCRIT 32.9 % (35.4-49); HEMOGLOBIN 11.3 GM/dL (11.7-16.9); MCH 33.6 pg (25.7-33.7); MCHC 34.4 g/dl (32.0-35.9); MEAN CELL VOLUME 97.6 fl (80-96); MEAN PLT VOLUME 9.7 fl (7.5-11.1); PLATELET COUNT 230 K/MM3 (134-434); RBC 3.37 M/mm3 (4.00-5.60); RDW 13.4 % (11.9-15.9); WHITE BLOOD COUNT 6.2 K/mm3 (4.0-10.0)
--- NOTE | 2019-11-26 15:02 | EKG ---
Test Reason : Blood Pressure : / mmHG Vent. Rate : 070 BPM Atrial Rate : 070 BPM P-R Int : 156 ms QRS Dur : 094 ms QT Int : 420 ms P-R-T Axes : 071 053 030 degrees QTc Int : 453 ms NORMAL SINUS RHYTHM POSSIBLE LEFT ATRIAL ENLARGEMENT LEFT VENTRICULAR HYPERTROPHY ABNORMAL ECG WHEN COMPARED WITH ECG OF 20-APR-2018 16:14, VENT. RATE HAS INCREASED BY 23 BPM Confirmed by SHELLIE DIAZ MD ([id number]) on 11/26/2019 3:01:38 PM Referred By: Confirmed By:SHELLIE DIAZ MD
[2019-11-26 15:11] LABS: BLOOD UREA NITROGEN 30.8 mg/dL (7-18); CALCIUM 9.1 mg/dL (8.5-10.1); CREATININE 1.5 mg/dL (0.55-1.3); POTASSIUM 3.7 mmol/L (3.5-5.1)
[2019-11-26 15:20] LABS: BILIRUBIN,TOTAL 0.4 mg/dL (0.2-1)
--- NOTE | 2019-11-26 15:48 | CONSULT ---
[facility] Psychiatric Consult - Data Date of interview: 11/26/19 Admission source: [facility] Identifying data: Revisit to [facility] and admission to [address] [place] [address] for this 59 y/o AA male self-referred for detoxification treatment. JUDITH issues : alcohol, cocaine, heroin, nicotine. 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 Substance Abuse History: Discussed with the patient. JUDITH profile as follows : Alcohol. Substance amount: six pack beers. Frequency of use: Daily. Substance route: Oral. Date of Last Use: 11/26/19. First use age 27 y. No seizures. Blackout 8 months ago. 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 Heroin. Substance amount: 4-5 bags. Frequency of use: Daily. Substance route: Inhalation (ex: sniffing or snorting). Date of Last Use: 11/25/19. First use age 20 y. No OD. No Narcan. Cocaine-Crack. Substance amount: $40-80. Frequency of use: Daily. Substance route: Smoking. Date of Last Use: 11/25/19. First use age 20 y. Nicotine. Substance amount: 1/2 pack. Frequency of use: Daily. Substance route: Smoking. Date of Last Use: 11/26/19. First use age 19 y. History Source: Patient. Limitations to Obtaining History: No Limitations. History of multiple JUDITH treatment failures. Medical History: Medical profile is remarkable for positive PPD (treated), antecedent of chlamydia + gonorrhea, GERD and hypertension. No known allergies. Psychiatric History: Patient denies history of psychiatric hospitalizations, OPD care or suicide attempts. Physical/Sexual Abuse/Trauma History: Patient denies. Additional Comment: Urine drug screen results: AVNI-Cocaine, FEN-Fentanyl, MOP- Opiates. Noted. Mental Status Exam - Mental Status Exam Alert and Oriented to: Time, Place, Person Cognitive Function: Good Patient Appearance: Unkempt, Disheveled Mood: Nervous Affect: Appropriate, Mood Congruent, Normal Range Patient Behavior: Fatigued, Appropriate, Cooperative Speech Pattern: Clear, Appropriate Voice Loudness: Normal Thought Process: Intact, Goal Oriented Thought Disorder: Not Present Hallucinations: Denies Suicidal Ideation: Denies Homicidal Ideation: Denies Insight/Judgement: Poor Sleep: Poorly, Difficulty falling asleep Appetite: Good Gait/Station: Normal Psychiatric Findings - Problem List ([place] 1, 2,3) (1) Alcohol dependence with uncomplicated withdrawal Current Visit: Yes Status: Acute Comment: (2) Opioid dependence with withdrawal Current Visit: Yes Status: Acute Comment: (3) Cocaine dependence Current Visit: Yes Status: Chronic Qualifiers: Substance use status: uncomplicated Qualified Code(s): F14.20 - Cocaine dependence, uncomplicated Comment: (4) Nicotine dependence Current Visit: Yes Status: Chronic Qualifiers: Nicotine product type: cigarettes Substance use status: uncomplicated Qualified Code(s): F17.210 - Nicotine dependence, cigarettes, uncomplicated (5) Insomnia Current Visit: Yes Status: Chronic - Initial Treatment Plan Initial Treatment Plan: Psychoeducation. Sleep hygiene. Support. Detoxification. Insomnia is addressed, at patient's request, with trazodone 100 mg po hs. Mr Berman is made aware of the risk of priapism. Granted consent (verbal) to MD. Chin.
[2019-11-26] MEDS: chlordiazePOXIDE HCL 25 MG CAPSULE PO SCH ×2 (17:43→22:01)
[2019-11-26] MEDS: MELATONIN 5 MG TABLETS PO SCH (22:01)
[2019-11-26] MEDS: THIAMINE HCL 100 MG TABLET (FP) PO SCH (22:01)
[2019-11-26] MEDS: traZODone HCL 50 MG TABLET (FP) PO SCH (22:01)
[2019-11-27] MEDS: chlordiazePOXIDE HCL 25 MG CAPSULE PO SCH ×4 (06:20→22:12)
[2019-11-27] MEDS: hydrOXYzine PAMOATE 25 MG CAPSULE (FP) PO SCH ×5 (06:20→22:12)
[2019-11-27] MEDS ORDERED: METHADONE HCL 10 MG TABLET (FOR DETOX USE ONLY) ONE (09:07)
[2019-11-27] MEDS ORDERED: METHADONE HCL 5 MG TABLET (FOR DETOX USE ONLY) ONE (09:07)
[2019-11-27] MEDS ORDERED: METHADONE (DETOX) 20 MG, METHADONE (DETOX) 5 MG PO ONE (10:00)
[2019-11-27] MEDS: PRENATAL VITAMINS W/ FOLIC ACID TABLET (FP) PO SCH (10:37)
[2019-11-27] MEDS: NICOTINE 14 MG/24 HOURS TOPICAL PATCH TD SCH (10:41)
[2019-11-27] MEDS: COLLOIDAL OATMEAL 1 BAR EACH TP PRN ×2 (10:41→22:16)
--- NOTE | 2019-11-27 10:52 | PN ---
S CIWA - CIWA Score Nausea/Vomitin-Mild Nausea/No Vomiting Muscle Tremors: 2 Anxiety: 2 Agitation: 2 Paroxysmal Sweats: No Perspiration Orientation: 0-Oriented Tacttile Disturbances: 1-Very Mild Itch/Numbness Auditory Disturbances: 0-None Visual Disturbances: 0-None Headache: 2-Mild CIWA-Ar Total Score: 10 BHS COWS - Scale Resting Pulse: 0= CT 80 or Below Sweatin= No chills or Flushing Restless Observation: 0= Sits Still Pupil Size: 1= Pupils >than Normal Bone or Joint Aches: 2= Severe Diffuse Aches Runny Nose/ Eye Tearin= Nasal Congestion GI Upset > 30mins: 2= Nausea/Diarrhea Tremor Observation of Outstretched Hands: 2= Slight Tremor Visible Yawning Observation: 1= 1-2x During Session Anxiety or Irritability: 2=Irritable/Anxious Goose Flesh Skin: 0=Smooth Skin COWS Score: 11 S Progress Note (SOAP) Subjective: alert,irritable,anxious,interrupted sleep,tremor,pain in the body and back Objective: 11/27/19 15:43 Vital Signs Temperature 97.6 F 11/27/19 12:36 Pulse Rate 82 11/27/19 12:36 Respiratory Rate 18 11/27/19 12:36 Blood Pressure 152/89 11/27/19 12:36 O2 Sat by Pulse Oximetry (%) 100 11/27/19 12:36 Laboratory Last Values WBC 6.2 K/mm3 (4.0-10.0) 11/26/19 13:00 RBC 3.37 M/mm3 (4.00-5.60) L 11/26/19 13:00 Hgb 11.3 GM/dL (11.7-16.9) L 11/26/19 13:00 Hct 32.9 % (35.4-49) L 11/26/19 13:00 MCV 97.6 fl (80-96) H 11/26/19 13:00 MCH 33.6 pg (25.7-33.7) 11/26/19 13:00 MCHC 34.4 g/dl (32.0-35.9) 11/26/19 13:00 RDW 13.4 % (11.9-15.9) 11/26/19 13:00 Plt Count 230 K/MM3 (134-434) 11/26/19 13:00 MPV 9.7 fl (7.5-11.1) 11/26/19 13:00 Sodium 135 mmol/L (136-145) L 11/26/19 13:00 Potassium 3.7 mmol/L (3.5-5.1) 11/26/19 13:00 Chloride 99 mmol/L (98-107) 11/26/19 13:00 Carbon Dioxide 29 mmol/L (21-32) 11/26/19 13:00 Anion Gap 7 MMOL/L (8-16) L 11/26/19 13:00 BUN 30.8 mg/dL (7-18) H 11/26/19 13:00 Creatinine 1.5 mg/dL (0.55-1.3) H 11/26/19 13:00 Est GFR (CKD-EPI)AfAm 58.63 11/26/19 13:00 Est GFR (CKD-EPI)NonAf 50.59 11/26/19 13:00 Random Glucose 79 mg/dL (74-106) 11/26/19 13:00 Calcium 9.1 mg/dL (8.5-10.1) 11/26/19 13:00 Total Bilirubin 0.4 mg/dL (0.2-1) 11/26/19 13:00 AST 34 U/L (15-37) 11/26/19 13:00 ALT 33 U/L (13-61) 11/26/19 13:00 Alkaline Phosphatase 90 U/L (45-117) 11/26/19 13:00 Total Protein 9.0 g/dl (6.4-8.2) H 11/26/19 13:00 Albumin 4.0 g/dl (3.4-5.0) 11/26/19 13:00 Syphilis Serology Non-reactive (NONREACTIVE) 11/26/19 13:00 COVID-19 (VIN) Not detected (Not Detected) 11/26/19 14:00 Assessment: 11/27/19 15:44 withdrawal symptom Plan: continue detox methadone and librium regimen,encourage oral fluid,repeat bmp in am
[2019-11-27] MEDS: THIAMINE HCL 100 MG TABLET (FP) PO SCH (22:11)
[2019-11-27] MEDS: traZODone HCL 50 MG TABLET (FP) PO SCH (22:11)
[2019-11-27] MEDS: MELATONIN 5 MG TABLETS PO SCH (22:57)
[2019-11-28] MEDS: chlordiazePOXIDE HCL 25 MG CAPSULE PO SCH ×2 (06:40→10:08)
[2019-11-28] MEDS: hydrOXYzine PAMOATE 25 MG CAPSULE (FP) PO SCH ×2 (06:40→10:07)
[2019-11-28 09:13] VITALS: BP 151/94; PULSE 86; TEMP 96.6
[2019-11-28] MEDS ORDERED: METHADONE HCL 10 MG TABLET (FOR DETOX USE ONLY) PO ONE (10:00)
[2019-11-28] MEDS: PRENATAL VITAMINS W/ FOLIC ACID TABLET (FP) PO SCH (10:06)
[2019-11-28] MEDS: NICOTINE 14 MG/24 HOURS TOPICAL PATCH TD SCH (10:07)
[2019-11-28 10:48] LABS: POTASSIUM 4.2 mmol/L (3.5-5.1)
[2019-11-28 11:05] LABS: BLOOD UREA NITROGEN 18.8 mg/dL (7-18); CALCIUM 8.3 mg/dL (8.5-10.1); CREATININE 0.9 mg/dL (0.55-1.3)
--- NOTE | 2019-11-28 15:12 | PN ---
[facility] CIWA - CIWA Score Nausea/Vomitin-Mild Nausea/No Vomiting Muscle Tremors: 2 Anxiety: 2 Agitation: 2 Paroxysmal Sweats: No Perspiration Orientation: 0-Oriented Tacttile Disturbances: 0-None Auditory Disturbances: 0-None Visual Disturbances: 0-None Headache: 1-Very Mild CIWA-Ar Total Score: 8 BHS COWS - Scale Resting Pulse: 1= MD 81-100 Sweatin= No chills or Flushing Restless Observation: 0= Sits Still Pupil Size: 0= Normal to Room Light Bone or Joint Aches: 1= Mild Discomfort Runny Nose/ Eye Tearin= Nasal Congestion GI Upset > 30mins: 1= Stomach Cramp Tremor Observation of Outstretched Hands: 2= Slight Tremor Visible Yawning Observation: 0= None Anxiety or Irritability: 2=Irritable/Anxious Goose Flesh Skin: 0=Smooth Skin COWS Score: 8 S Progress Note (SOAP) Subjective: alert,irritable,anxious,interrupted sleep,aching pain, Objective: 11/28/19 15:10 Vital Signs Temperature 96.6 F L 11/28/19 08:32 Pulse Rate 86 11/28/19 08:32 Respiratory Rate 18 11/28/19 08:32 Blood Pressure 151/94 11/28/19 08:32 O2 Sat by Pulse Oximetry (%) 97 11/28/19 06:26 11/28/19 15:10 Laboratory Last Values WBC 6.2 K/mm3 (4.0-10.0) 11/26/19 13:00 RBC 3.37 M/mm3 (4.00-5.60) L 11/26/19 13:00 Hgb 11.3 GM/dL (11.7-16.9) L 11/26/19 13:00 Hct 32.9 % (35.4-49) L 11/26/19 13:00 MCV 97.6 fl (80-96) H 11/26/19 13:00 MCH 33.6 pg (25.7-33.7) 11/26/19 13:00 MCHC 34.4 g/dl (32.0-35.9) 11/26/19 13:00 RDW 13.4 % (11.9-15.9) 11/26/19 13:00 Plt Count 230 K/MM3 (134-434) 11/26/19 13:00 MPV 9.7 fl (7.5-11.1) 11/26/19 13:00 Sodium 140 mmol/L (136-145) 11/28/19 07:45 Potassium 4.2 mmol/L (3.5-5.1) 11/28/19 07:45 Chloride 107 mmol/L (98-107) 11/28/19 07:45 Carbon Dioxide 26 mmol/L (21-32) 11/28/19 07:45 Anion Gap 7 MMOL/L (8-16) L 11/28/19 07:45 BUN 18.8 mg/dL (7-18) H 11/28/19 07:45 Creatinine 0.9 mg/dL (0.55-1.3) 11/28/19 07:45 Est GFR (CKD-EPI)AfAm 108.73 11/28/19 07:45 Est GFR (CKD-EPI)NonAf 93.82 11/28/19 07:45 Random Glucose 88 mg/dL (74-106) 11/28/19 07:45 Calcium 8.3 mg/dL (8.5-10.1) L 11/28/19 07:45 Total Bilirubin 0.4 mg/dL (0.2-1) 11/26/19 13:00 AST 34 U/L (15-37) 11/26/19 13:00 ALT 33 U/L (13-61) 11/26/19 13:00 Alkaline Phosphatase 90 U/L (45-117) 11/26/19 13:00 Total Protein 9.0 g/dl (6.4-8.2) H 11/26/19 13:00 Albumin 4.0 g/dl (3.4-5.0) 11/26/19 13:00 Syphilis Serology Non-reactive (NONREACTIVE) 11/26/19 13:00 COVID-19 (VIN) Not detected (Not Detected) 11/26/19 14:00 Assessment: 11/28/19 15:10 withdrawal symptom Plan: continue detox methadone and librium regimen
--- NOTE | 2019-11-28 15:14 | PN ---
S Progress Note Note: patient did not want to complete treatment,left ama,did not want to wait
--- NOTE | 2019-11-28 15:17 | DS ---
[facility] Detox Discharge Summary Admission Date: 11/26/19 Discharge Date: 11/28/19 - History Present History: Alcohol Dependence, Opioid Dependence Additional Comments: patient left ama did not want to wait Pertinent Past History: hypertension - Physical Exam Results Vital Signs: Vital Signs Temperature 96.6 F L 11/28/19 08:32 Pulse Rate 86 11/28/19 08:32 Respiratory Rate 18 11/28/19 08:32 Blood Pressure 151/94 11/28/19 08:32 O2 Sat by Pulse Oximetry (%) 97 11/28/19 06:26 Pertinent Admission Physical Exam Findings: withdrawal signs and symptom Laboratory Last Values WBC 6.2 K/mm3 (4.0-10.0) 11/26/19 13:00 RBC 3.37 M/mm3 (4.00-5.60) L 11/26/19 13:00 Hgb 11.3 GM/dL (11.7-16.9) L 11/26/19 13:00 Hct 32.9 % (35.4-49) L 11/26/19 13:00 MCV 97.6 fl (80-96) H 11/26/19 13:00 MCH 33.6 pg (25.7-33.7) 11/26/19 13:00 MCHC 34.4 g/dl (32.0-35.9) 11/26/19 13:00 RDW 13.4 % (11.9-15.9) 11/26/19 13:00 Plt Count 230 K/MM3 (134-434) 11/26/19 13:00 MPV 9.7 fl (7.5-11.1) 11/26/19 13:00 Sodium 140 mmol/L (136-145) 11/28/19 07:45 Potassium 4.2 mmol/L (3.5-5.1) 11/28/19 07:45 Chloride 107 mmol/L (98-107) 11/28/19 07:45 Carbon Dioxide 26 mmol/L (21-32) 11/28/19 07:45 Anion Gap 7 MMOL/L (8-16) L 11/28/19 07:45 BUN 18.8 mg/dL (7-18) H 11/28/19 07:45 Creatinine 0.9 mg/dL (0.55-1.3) 11/28/19 07:45 Est GFR (CKD-EPI)AfAm 108.73 11/28/19 07:45 Est GFR (CKD-EPI)NonAf 93.82 11/28/19 07:45 Random Glucose 88 mg/dL (74-106) 11/28/19 07:45 Calcium 8.3 mg/dL (8.5-10.1) L 11/28/19 07:45 Total Bilirubin 0.4 mg/dL (0.2-1) 11/26/19 13:00 AST 34 U/L (15-37) 11/26/19 13:00 ALT 33 U/L (13-61) 11/26/19 13:00 Alkaline Phosphatase 90 U/L (45-117) 11/26/19 13:00 Total Protein 9.0 g/dl (6.4-8.2) H 11/26/19 13:00 Albumin 4.0 g/dl (3.4-5.0) 11/26/19 13:00 Syphilis Serology Non-reactive (NONREACTIVE) 11/26/19 13:00 COVID-19 (VIN) Not detected (Not Detected) 11/26/19 14:00 Vital Signs Temperature 96.6 F L 11/28/19 08:32 Pulse Rate 86 11/28/19 08:32 Respiratory Rate 18 11/28/19 08:32 Blood Pressure 151/94 11/28/19 08:32 O2 Sat by Pulse Oximetry (%) 97 11/28/19 06:26 - Medication Discharge Medications: Ambulatory Orders NK [No Known Home Medication] 11/26/19 - AMA Did Patient Leave Against Medical Advice: Yes
[2019-11-29] MEDS ORDERED: chlordiazePOXIDE HCL 10 MG CAPSULE PO PRN
[2019-11-29] MEDS ORDERED: chlordiazePOXIDE HCL 10 MG CAPSULE PO SCH (05:00)
[2019-11-29] MEDS ORDERED: METHADONE (DETOX) 10 MG, METHADONE (DETOX) 5 MG PO ONE (10:00)
[2019-11-30] MEDS ORDERED: chlordiazePOXIDE HCL 10 MG CAPSULE PO SCH (05:00)
[2019-11-30] MEDS ORDERED: METHADONE HCL 10 MG TABLET (FOR DETOX USE ONLY) PO ONE (10:00)
[2019-12-01] MEDS ORDERED: chlordiazePOXIDE HCL 10 MG CAPSULE PO ONE (05:00)
[2019-12-01] MEDS ORDERED: METHADONE HCL 5 MG TABLET (FOR DETOX USE ONLY) PO ONE (06:00)
== END 2019-11-28 10:36 | disposition left against medical advice (07) | DRG 770 ==
LOC: YASAS 11:11 → Y3N 12:52
PROVIDERS: ADMIT Allergy & Immunology; ATTEND Allergy & Immunology
PROC: HZ2ZZZZ Detoxification Services for Substance Abuse Treatment (ICD-10-PCS; principal; 2019-11-26)
DX: F10.230 Alcohol dependence with withdrawal, uncomplicated (principal); F11.23 Opioid dependence with withdrawal; F14.20 Cocaine dependence, uncomplicated; F17.210 Nicotine dependence, cigarettes, uncomplicated; G47.00 Insomnia, unspecified; I10 Essential (primary) hypertension; K21.9 Gastro-esophageal reflux disease without esophagitis; R76.11 Nonspecific reaction to tuberculin skin test without active tuberculosis; Z86.19 Personal history of other infectious and parasitic diseases; Z59.0 Homelessness
CPT/HCPCS: 36415; 80048; 80053; 85027; 86780; 93005; 93010; J0735; U0003

== ENCOUNTER 2020-11-14 14:19 | Emergency (ER) | payer OTHER ==
[2020-11-14 14:48] VITALS: BP 161/99; PULSE 99; TEMP 97.9; BMI 24.5
== END 2020-11-14 15:00 | disposition left against medical advice (07) ==
LOC: JER 14:19
DX: T50.901A Poisoning by unspecified drugs, medicaments and biological substances, accidental (unintentional), initial encounter (principal)
CPT/HCPCS: 99281-25

== ENCOUNTER 2021-08-24 07:29 | Inpatient (IN) | payer OTHER ==
[2021-08-24] MEDS ORDERED: IBUPROFEN 600 MG TABLET (FP) PO PRN (09:44)
[2021-08-24] MEDS ORDERED: DICYCLOMINE HCL 10 MG CAPSULE PO PRN (09:44)
[2021-08-24] MEDS ORDERED: ONDANSETRON *ODT* 4 MG TABLET SL PRN (09:44)
[2021-08-24] MEDS ORDERED: BENZOCAINE/MENTHOL (CHLORASEPTIC ) LOZENGE MM PRN (09:44)
[2021-08-24] MEDS ORDERED: IBUPROFEN 400 MG TABLET (FP) PO PRN (09:44)
[2021-08-24] MEDS ORDERED: MAG HYDROX/AL HYDROX/SIMETH 30 ML UNIT-DOSE CUP PO PRN (09:44)
[2021-08-24] MEDS ORDERED: ACETAMINOPHEN 325 MG TABLET (FP) PO PRN ×2 (09:44)
[2021-08-24] MEDS ORDERED: LOPERAMIDE HCL 2 MG CAPSULE PO PRN (09:44)
[2021-08-24] MEDS ORDERED: MAGNESIUM CITRATE 300 ML BOTTLE PO PRN (09:44)
[2021-08-24] MEDS ORDERED: NICOTINE 10 MG CARTRIDGE (INHALER) IH PRN (09:44)
[2021-08-24] MEDS ORDERED: BISMUTH SUBSALICYLATE 524 MG/30 ML PO PRN (09:44)
[2021-08-24] MEDS ORDERED: cloNIDine HCL 0.1 MG TABLET PO PRN (09:44)
[2021-08-24] MEDS ORDERED: NICOTINE POLACRILEX 4 MG GUM BUC PRN (09:44)
[2021-08-24] MEDS ORDERED: chlordiazePOXIDE HCL 25 MG CAPSULE PO PRN (09:44)
[2021-08-24] MEDS ORDERED: MAGNESIUM HYDROX 2400MG/30ML ORAL SUSPENSION 30 ML CUP PO PRN (09:44)
[2021-08-24 09:54] VITALS: BMI 22.6
[2021-08-24] MEDS ORDERED: methaDONE HCL 10 MG TABLET (FOR DETOX USE ONLY) PO ONE (11:00)
[2021-08-24] MEDS: METHOCARBAMOL 500 MG TABLET PO PRN (11:52)
[2021-08-24] MEDS: hydrOXYzine PAMOATE 25 MG CAPSULE (FP) PO SCH ×4 (11:52→22:50)
[2021-08-24] MEDS: chlordiazePOXIDE HCL 25 MG CAPSULE PO SCH ×3 (11:53→22:50)
[2021-08-24] MEDS: PRENATAL VITAMINS W/ FOLIC ACID TABLET (FP) PO SCH (11:55)
[2021-08-24 15:17] LABS: HEMATOCRIT 34.3 % (35.4-49); HEMOGLOBIN 11.2 GM/dL (11.7-16.9); MCH 32.2 pg (25.7-33.7); MCHC 32.8 g/dl (32.0-35.9); MEAN CELL VOLUME 98.4 fl (80-96); MEAN PLT VOLUME 9.4 fl (7.5-11.1); PLATELET COUNT 265 10^3/uL (134-434); RBC 3.49 M/mm3 (4.00-5.60); RDW 13.6 % (11.9-15.9); WHITE BLOOD COUNT 6.1 K/mm3 (4.0-10.0)
[2021-08-24 15:49] LABS: ALBUMIN 3.5 g/dl (3.4-5.0)
[2021-08-24 15:52] LABS: CREATININE 1.1 mg/dL (0.55-1.3)
[2021-08-24 15:54] LABS: BILIRUBIN,TOTAL 0.5 mg/dL (0.2-1); TOT PROT 7.7 g/dl (6.4-8.2)
[2021-08-24] MEDS: MELATONIN 5 MG TABLETS PO SCH (22:49)
[2021-08-24] MEDS: THIAMINE HCL 100 MG TABLET (FP) PO SCH (22:50)
[2021-08-25] MEDS: chlordiazePOXIDE HCL 25 MG CAPSULE PO SCH ×4 (07:39→22:21)
[2021-08-25] MEDS: hydrOXYzine PAMOATE 25 MG CAPSULE (FP) PO SCH ×5 (07:39→22:21)
[2021-08-25] MEDS ORDERED: methaDONE HCL 10 MG TABLET (FOR DETOX USE ONLY) ONE (09:49)
[2021-08-25] MEDS: METHOCARBAMOL 500 MG TABLET PO PRN (10:04)
[2021-08-25] MEDS: PRENATAL VITAMINS W/ FOLIC ACID TABLET (FP) PO SCH (10:06)
[2021-08-25] MEDS: THIAMINE HCL 100 MG TABLET (FP) PO SCH (22:21)
[2021-08-25] MEDS: MELATONIN 5 MG TABLETS PO SCH (22:21)
[2021-08-26] MEDS: chlordiazePOXIDE HCL 25 MG CAPSULE PO SCH ×4 (05:35→22:27)
[2021-08-26] MEDS: hydrOXYzine PAMOATE 25 MG CAPSULE (FP) PO SCH ×5 (05:35→22:27)
[2021-08-26] MEDS ORDERED: methaDONE HCL 10 MG TABLET (FOR DETOX USE ONLY) PO ONE (10:00)
[2021-08-26] MEDS: PRENATAL VITAMINS W/ FOLIC ACID TABLET (FP) PO SCH (10:20)
[2021-08-26] MEDS: BACITRACIN 0.9 GM PACKET TP SCH (22:26)
[2021-08-26] MEDS: MELATONIN 5 MG TABLETS PO SCH (22:26)
[2021-08-26] MEDS: THIAMINE HCL 100 MG TABLET (FP) PO SCH (22:27)
[2021-08-27] MEDS ORDERED: chlordiazePOXIDE HCL 10 MG CAPSULE PO PRN
[2021-08-27] MEDS: chlordiazePOXIDE HCL 10 MG CAPSULE PO SCH ×4 (06:49→22:59)
[2021-08-27] MEDS: hydrOXYzine PAMOATE 25 MG CAPSULE (FP) PO SCH ×5 (06:50→22:58)
[2021-08-27] MEDS: BACITRACIN 0.9 GM PACKET TP SCH ×2 (10:20→22:58)
[2021-08-27] MEDS: PRENATAL VITAMINS W/ FOLIC ACID TABLET (FP) PO SCH (10:20)
[2021-08-27] MEDS ORDERED: methaDONE HCL 10 MG TABLET (FOR DETOX USE ONLY) ONE (10:22)
[2021-08-27] MEDS: THIAMINE HCL 100 MG TABLET (FP) PO SCH (22:58)
[2021-08-27] MEDS: MELATONIN 5 MG TABLETS PO SCH (22:58)
[2021-08-28] MEDS ORDERED: chlordiazePOXIDE HCL 10 MG CAPSULE PO SCH (05:00)
[2021-08-28 06:30] VITALS: BP 128/82; PULSE 68; TEMP 98.3
[2021-08-28] MEDS: hydrOXYzine PAMOATE 25 MG CAPSULE (FP) PO SCH ×2 (06:34→10:47)
[2021-08-28] MEDS ORDERED: methaDONE HCL 10 MG TABLET (FOR DETOX USE ONLY) PO ONE (10:00)
[2021-08-28] MEDS: BACITRACIN 0.9 GM PACKET TP SCH (10:46)
[2021-08-28] MEDS: PRENATAL VITAMINS W/ FOLIC ACID TABLET (FP) PO SCH (10:47)
[2021-08-29] MEDS ORDERED: chlordiazePOXIDE HCL 10 MG CAPSULE PO ONE (05:00)
== END 2021-08-28 08:58 | disposition left against medical advice (07) | DRG 770 ==
LOC: YASAS 07:29 → Y3N 10:20
PROVIDERS: ADMIT Allergy & Immunology; ATTEND Surgery
PROC: HZ2ZZZZ Detoxification Services for Substance Abuse Treatment (ICD-10-PCS; principal; 2021-08-24)
DX: F11.23 Opioid dependence with withdrawal (principal); F10.230 Alcohol dependence with withdrawal, uncomplicated; F14.20 Cocaine dependence, uncomplicated; F17.210 Nicotine dependence, cigarettes, uncomplicated; F41.8 Other specified anxiety disorders; U07.1 COVID-19; I10 Essential (primary) hypertension; K21.9 Gastro-esophageal reflux disease without esophagitis; G47.09 Other insomnia; L98.8 Other specified disorders of the skin and subcutaneous tissue; Z86.11 Personal history of tuberculosis
CPT/HCPCS: 36415; 71046-TC-FY; 80053; 85027; 86780; 87811; C9803-CS; J0735; U0003; U0005